=== PATIENT | male | born 1935 | race Caucasian/White ===

== ENCOUNTER 2020-11-19 19:47 | Inpatient (IN) | payer MEDICARE, OTHER ==
[~2020-11-19] VITALS: Ht 172.7 cm; Wt 86.2 kg
[~2020-11-19 19:47] MED LIST: ACIPHEX20 MG PO; ASPIR-LOW81 MG ORAL; BYSTOLIC 2.5MG2.5 MG; CLONAZEPAM0.5 MG; CLOPIDOGREL75 MG; CRESTOR10 M2; QNASL8.7 GM; RANITIDINE HCL150 M2; TAMSULOSIN HCL0.4 MG
--- NOTE | 2020-11-19 20:08 | NUR ---
ED Nurse Note: Pt walked in from home, walks with a steady gait, axox4, vitals are stable on RA. Pt has fever, cough, flu like symptoms. He states that he tested positive for COVID 11/18. He is febrile and has notable generalized weakness, both upper extremities are exhibiting tremors. he speaks in full sentaces, breathing is even and unlabored. Addendum: 11/19/20 at 2025 by [facility] in by ambulance RA 68
[2020-11-19 20:19] LABS: HEMATOCRIT 40.4 % (42.0-52.0); HEMOGLOBIN 13.4 G/DL (14.2-18.0); MEAN CORPUSCULAR VOLUME 93 FL (80-99); PLATELET COUNT 126 K/UL (150-450); RED BLOOD COUNT 4.34 M/UL (4.70-6.10); RED CELL DISTRIBUTION WIDTH 11.9 % (11.6-14.8); WHITE BLOOD COUNT 6.1 K/UL (4.8-10.8)
[2020-11-19 20:25] VITALS: BP 122/61
[2020-11-19 20:25] LABS: CALCIUM 9.2 MG/DL (8.5-10.1); CREATININE 2.2 MG/DL (0.55-1.30); POTASSIUM 4.5 MMOL/L (3.5-5.1)
[2020-11-19 20:29] LABS: INR 1.1 (0.9-1.1)
--- NOTE | 2020-11-19 20:40 | NUR ---
ED Nurse Note: Pt states annelise he is unable to give a urine sample at this time. ER MD aware and says thats ok.
[2020-11-19 20:42] LABS: ALBUMIN 3.4 G/DL (3.4-5.0); ALBUMIN/GLOBULIN RATIO 0.9 (1.0-2.7); BILIRUBIN,TOTAL 0.8 MG/DL (0.2-1.0); CKMB 0.7 NG/ML (0.0-3.6)
--- NOTE | 2020-11-19 20:51 | NUR ---
ED Nurse Note: ER MD aware of lactic acid. no new orders
[2020-11-19] MEDS ORDERED: Azithromycin 500 MG in NS 275 ML IV ONE (21:15)
[2020-11-19] MEDS ORDERED: Enoxaparin 100mg Inj SUBQ SCH (22:00)
[2020-11-19] MEDS ORDERED: dexAMETHasone 10mg/ml Inj IV ONE (22:00)
--- NOTE | 2020-11-19 22:36 | NUR ---
ED Nurse Note: Both ER MDs on shift stated ok to give lovenox with plt 126
--- NOTE | 2020-11-19 22:39 | Emergency Room Report ---
History of Present Illness General Chief Complaint: Generalized Weakness Source: Patient Present Illness HPI This patient presents during the COVID-19 pandemic. The patient tested positive for COVID-19 on the of this month. The patient states that over the past few days he has felt terrible. He states he has generalized weakness and severe fatigue. He states he is not doing well with Covid. 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 He denies shortness of breath or chest pain. He has felt chills. He denies abdominal pain. He denies nausea or vomiting. He states he mainly just feels completely exhausted and was unable to even get himself up in the restroom today. Allergies: Coded Allergies: No Known Allergies (Unverified , 10/20/12) COVID-19 Screening Contact w/high risk pt: Yes Experienced COVID-19 symptoms?: Yes COVID-19 Testing performed BONE TENDER: Yes COVID-19 Screening: Positive COVID-19 COVID-19 Testing Source: [facility] Patient History Past Medical History: see triage record, DM, HTN, CAD Social History: Denies: smoking, alcohol use, drug use Reviewed Nursing Documentation: PMH: Agreed; PSxH: Agreed Nursing Documentation-PMH Hx Cardiac Problems: Yes Hx Hypertension: Yes Hx Diabetes: Yes Hx Cancer: Yes Hx Gastrointestinal Problems: No Hx Cerebrovascular Accident: Yes - 2004 Hx Neurologic Surgery: No Review of Systems All Other Systems: negative except mentioned in HPI Physical Exam Vital Signs Date Time Temp Pulse Resp B/P (MAP) Pulse Ox O2 Delivery O2 Flow Rate FiO2 11/19/20 19:42 99.1 98 20 124/62 (82) 98 Room Air Sp02 EP Interpretation: reviewed, normal General Appearance: no apparent distress, alert, GCS 15, non-toxic Head: normocephalic, atraumatic Eyes: bilateral eye normal inspection, bilateral eye PERRL ENT: hearing grossly normal, normal pharynx, no angioedema, normal voice Neck: full range of motion, supple/symm/no masses Respiratory: chest non-tender, lungs clear, normal breath sounds, no respiratory distress, no retraction, no accessory muscle use, speaking full sentences Cardiovascular #1: regular rate, rhythm, no edema Gastrointestinal: normal bowel sounds, non tender, soft, non-distended, no guarding, no rebound Rectal: deferred Musculoskeletal: back normal, normal range of motion, non-tender Neurologic: alert, motor strength/tone normal, oriented x3, sensory intact, responsive, speech normal Psychiatric: judgement/insight normal, memory normal, mood/affect normal, no suicidal/homicidal ideation Skin: no rash, normal color Medical Decision Making Diagnostic Impression: Primary Impression: COVID-19 Additional Impressions: Pneumonia Renal failure Dehydration Lactic acidosis ER Course This patient has COVID-19 pneumonia. He does not require any oxygen to maintain saturations in the high 90s. However, on chest x-ray he does have a mild multifocal pneumonia. He was given azithromycin as a precaution to cover bacterial etiology. Patient was also given Decadron and Lovenox per protocol of COVID-19. The patient does have a slightly elevated creatinine and platelets of 126, however, I felt that the benefit of treatment with Lovenox in this patient with COVID-19 outweighed the risk in this particular patient. The patient also is elderly and very fatigued and weak at this time. He is unable to perform activities of daily living. He will be admitted for further monitoring and further evaluation treatment as an inpatient as I do not feel that he is safe to be home and he is high risk for rapid deterioration. This patient was evaluated in the context of the global COVID-19 pandemic, which necessitated consideration that the patient might be at risk for infection with the [id number] virus that causes COVID-19. Institutional protocols and algorithms that pertain to the evaluation of patients at risk for COVID-19 and the state of rapid change based on information released by multiple regulatory bodies including the CDC and federal and state organizations. These policies and algorithms were followed during the patient's care in the ED. Laboratory Tests Test 11/19/20 20:00 White Blood Count 6.1 K/UL (4.8-10.8) Red Blood Count 4.34 M/UL (4.70-6.10) L Hemoglobin 13.4 G/DL (14.2-18.0) L Hematocrit 40.4 % (42.0-52.0) L Mean Corpuscular Volume 93 FL (80-99) Mean Corpuscular Hemoglobin 30.8 PG (27.0-31.0) Mean Corpuscular Hemoglobin Concent 33.2 G/DL (32.0-36.0) Red Cell Distribution Width 11.9 % (11.6-14.8) Platelet Count 126 K/UL (150-450) L Mean Platelet Volume 8.8 FL (6.5-10.1) Neutrophils (%) (Auto) % (45.0-75.0) Lymphocytes (%) (Auto) % (20.0-45.0) Monocytes (%) (Auto) % (1.0-10.0) Eosinophils (%) (Auto) % (0.0-3.0) Basophils (%) (Auto) % (0.0-2.0) Differential Total Cells Counted 100 Neutrophils % (Manual) 80 % (45-75) H Lymphocytes % (Manual) 12 % (20-45) L Monocytes % (Manual) 6 % (1-10) Eosinophils % (Manual) 0 % (0-3) Basophils % (Manual) 0 % (0-2) Band Neutrophils 2 % (0-8) Platelet Estimate Decreased L Platelet Morphology Normal Red Blood Cell Morphology Normal Prothrombin Time 12.1 SEC (9.30-11.50) H Prothrombin Time INR 1.1 (0.9-1.1) Activated Partial Thromboplast Time 30 SEC (23-33) D-Dimer 8.10 mg/L FEU (0.00-0.49) H Sodium Level 135 MMOL/L (136-145) L Potassium Level 4.5 MMOL/L (3.5-5.1) Chloride Level 100 MMOL/L (98-107) Carbon Dioxide Level 23 MMOL/L (21-32) Anion Gap 12 mmol/L (5-15) Blood Urea Nitrogen 26 mg/dL (7-18) H Creatinine 2.2 MG/DL (0.55-1.30) H Estimated Glomerular Filtration Rate 28.6 mL/min (>60) Glucose Level 138 MG/DL (74-106) H Lactic Acid Level 4.80 mmol/L (0.4-2.0) H Calcium Level 9.2 MG/DL (8.5-10.1) Ferritin 665 NG/ML (8-388) H Total Bilirubin 0.8 MG/DL (0.2-1.0) Aspartate Amino Transferase (AST) 35 U/L (15-37) Alanine Aminotransferase (ALT) 24 U/L (12-78) Alkaline Phosphatase 46 U/L (46-116) Lactate Dehydrogenase 197 U/L (81-234) Total Creatine Kinase 492 U/L (26-308) H Creatine Kinase MB 0.7 NG/ML (0.0-3.6) Creatine Kinase MB Relative Index 0.1 Troponin I 0.021 ng/mL (0.000-0.056) C-Reactive Protein, Quantitative 18.5 mg/dL (0.00-0.90) H Pro-B-Type Natriuretic Peptide 506 pg/mL (0-125) H Total Protein 7.4 G/DL (6.4-8.2) Albumin 3.4 G/DL (3.4-5.0) Globulin 4.0 g/dL Albumin/Globulin Ratio 0.9 (1.0-2.7) L Lipase 124 U/L (73-393) Microbiology Date/Time Source Procedure Growth Status 11/19/20 20:23 Nasopharynx SARS-CoV-2 RdRp Gene Assay - Final Complete EKG Diagnostic Results Rate: other - SR w/ 1st degree AV block. Rhythm: other - SR ST Segments: no acute changes Rhythm Strip Diag. Results EP Interpretation: yes Rate: 80's Rhythm: NSR, no PVC's, no ectopy Chest X-Ray Diagnostic Results Chest X-Ray Diagnostic Results : Chest X-Ray Ordered: Yes # of Views/Limited/Complete: 1 View Indication: Other EP Interpretation: Yes Interpretation: other - multifocal opacities bilateral lungs. Impression: Other - atypical PNA Electronically Signed by: Mariam Landon DO Last Vital Signs Date Time Temp Pulse Resp B/P (MAP) Pulse Ox O2 Delivery O2 Flow Rate FiO2 11/19/20 20:25 100.8 102 20 122/61 98 Room Air Disposition: ADMITTED INPATIENT Condition: Serious Referrals: NOT CHOSEN IPA/,REFERRING (PCP) Mariam Landon DO Nov 19, 2020 22:39
--- NOTE | 2020-11-19 22:45 | NUR ---
NURSE NOTES: Received report from CAMRON Alvarado. Waiting for transfer.
--- NOTE | 2020-11-19 22:50 | NUR ---
ED Nurse Note: Report given to Sergio
--- NOTE | 2020-11-19 23:10 | NUR ---
NURSE NOTES: Patient arrived on unit in 411-2. Pt is in distress at this time. Vitals signs are as follows 101.5, RI 80, 95%, 140/69, RR 20, and in no pain. 20G IV on L AC. Patient oriented to room and is aware to call staff if he needs to stand up. Will contact Md for admission orders.
--- NOTE | 2020-11-19 23:12 | NUR ---
TRANSFER TO FLOOR: Patient transferred to as ordered, per ER MD. Report given to Sergio LYON 411-2. Belongings sent with pt. Family and or S/O informed of transfer. Pt transfered per covid policy.
[2020-11-19 23:13] LABS: APPEARANCE,URINE CLEAR; BILIRUBIN, URINE NEGATIVE (NEGATIVE); GLUCOSE, URINE (UA) NEGATIVE (NEGATIVE); KETONES,URINE 1+ (NEGATIVE); LEUKOCYTE ESTERASE ,URINE 1+ (NEGATIVE); NITRITE,URINE NEGATIVE (NEGATIVE); PH,URINE 5 (4.5-8.0); PROTEIN,URINE 3+ (NEGATIVE); UROBILINOGEN,URINE NORMAL MG/DL (0.0-1.0)
--- NOTE | 2020-11-19 23:15 | NUR ---
ED Nurse Note: Pt doesnt know maintenance meds name and dosage. Pt's will call to give the list of meds. Med recon not done
[2020-11-19 23:35] LABS: COLOR,URINE YELLOW
[2020-11-20] VITALS (7 sets, daily range): BP systolic 110–140; BP diastolic 52–71
[2020-11-20] MEDS ORDERED: Morphine Sulfate 2mg/ml Inj(IV/IM USE ONLY) IVP PRN (04:30)
[2020-11-20 06:19] LABS: HEMATOCRIT 40.3 % (42.0-52.0); HEMOGLOBIN 13.6 G/DL (14.2-18.0); MEAN CORPUSCULAR VOLUME 93 FL (80-99); PLATELET COUNT 133 K/UL (150-450); RED BLOOD COUNT 4.36 M/UL (4.70-6.10); RED CELL DISTRIBUTION WIDTH 11.8 % (11.6-14.8); WHITE BLOOD COUNT 5.7 K/UL (4.8-10.8)
[2020-11-20] MEDS: NovoLOG Insulin Flexpen SUBQ SCH ×4 (06:26→20:40)
[2020-11-20 07:04] LABS: CALCIUM 8.9 MG/DL (8.5-10.1); CREATININE 1.7 MG/DL (0.55-1.30); POTASSIUM 4.6 MMOL/L (3.5-5.1)
--- NOTE | 2020-11-20 07:30 | NUR ---
NURSE HAND-OFF: Important Events on Shift: Fever of 101.5 that went down to 98.4 Patient Status: calm Diet: 1800 ada low sodium Pending Orders: Pending Results/Labs: Pending MD notification: Latest Vital Signs: Temperature 97.7 , Pulse 64 , B/P 135 /71 , Respiratory Rate 16 , O2 SAT 97 , Room Air, O2 Flow Rate . Vital Sign Comment: VSS Latest Delarosa Fall Score: 45 Fall Risk: High Risk Safety Measures: Call light Within Reach, Bed Alarm Zone 1, Side Rails Side Rails x3, Bed position Low and Locked. Fall Precautions: Yellow Socks Door Sign Patient Fall Education Report given to Jamie Lees.
--- NOTE | 2020-11-20 07:40 | NUR ---
NURSE NOTES: Report received from Sergio LYON, rounds made. Patient dangling at bedside. AOx4, calm. Respirations even unlabored on RA. Denies SOB, pain, NV. IV 1/2 NS at 60 ml/hr to LAC, site asymptomatic. Call light in reach, bed in lowest position, will continue to monitor.
--- NOTE | 2020-11-20 08:28 | NUR ---
NURSE NOTES: Dr. Carlson and Dr. Orozco notified of platelets 133, orders for okay to give Heparin this AM. Will follow as ordered.
--- NOTE | 2020-11-20 08:30 | NUR ---
NURSE NOTES: Spoke with daughter, patient's neighbor will bring in home medications.
[2020-11-20] MEDS: Heparin 5000 units/ml inj SUBQ SCH ×2 (08:48→20:40)
--- NOTE | 2020-11-20 08:55 | NUR ---
NURSE NOTES: Home medications brought in, reviewed and documented each medication, will resume as ordered. Prescription bottles given back to neighbor. Belongings (glasses, iphone, exhibit electrician and watch) given to patient.
--- NOTE | 2020-11-20 10:24 | Consultation ---
Consult Note Consult Note DATE OF CONSULTATION: 11/20/2020 CONSULTING PHYSICIAN: Gigi Negrete MD. ATTENDING PHYSICIAN: Dr. Carlson REASON FOR CONSULTATION: COVID-19 HISTORY OF PRESENT ILLNESS: This is an 85-year-old male with history of obstructive sleep apnea, COPD, and diabetes mellitus, who presented to the ED for evaluation of generalized weakness and severe fatigue for a few days. Patient reported testing positive for COVID-19 on 11/14/2020. His repeat COVID- 19 testing via rapid gene assay is positive in the ER. On chest x-ray he does have a mild multifocal pneumonia. He was given azithromycin for empiric pneumonia coverage. He was also given Decadron and Lovenox. He was admitted to the hospital for further monitoring and evaluation/treatment given high risk for rapid deterioration. 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 He denies having any other caregiver and is concerned that his is left at home without assistance. He denies shortness of breath, chest pain, abdominal pain, nausea/vomiting, cough or diarrhea. For his history of sleep apnea, he reports using CPAP at night. 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 General: Patient sitting up on the edge of bed, eating breakfast. Appears NAD, with normal work of breathing on room air. HEENT: Head exam reveals that the head is normocephalic, atraumatic without deformity or unusual swelling. Pupils are PERRLA. Wearing facemask CHEST AND LUNGS: Reveals clear, normal, symmetrical breath sounds with no adventitious sounds. CARDIOVASCULAR: Reveals normal S1, S2 without murmurs, rubs, or clicks. ABDOMEN: Soft with no tenderness or organomegaly. RECTAL: Deferred. MUSCULOSKELETAL: There is no tenderness to palpation. Range of motion is normal. NEUROLOGICAL: Alert and oriented x3 , nonfocal, shows resting tremor LABORATORY DATA: Laboratory testing shows WBC 5.7, hemoglobin 13.6, hematocrit 40.3. Chemistries show BUN 24, creatinine 1.7, glucose 160, otherwise unremarkable Coag panel shows D-dimer 8.1 Urinalysis show 3+ protein, 1+ ketone, 5+ blood, 1+ leuk esterase Assessment/Plan 1. COVID-19 pneumonia with history of fever (T-max= 101.5) -Currently saturating well on room air; provide supplemental oxygen as needed -Given x-ray findings and history of fever, we will continue broad-spectrum antibiotics for pneumonia coverage -Given normoxemia on room air, he may not need steroids 2. Weakness - Recommend PT evaluation -Monitor 3. SOUMYA -IV fluids -Monitor renal parameters 4. Diabetes mellitus with hyperglycemia -On insulin 5. Elevated inflammatory markers -On heparin, given elevated BUN, Cr 6. Obstructive sleep apnea -Patient reports using CPAP at night -We will continue CPAP at night with the setting of 12 The care for this patient was discussed with my supervising physician. Time spent for this case was approximately 31 minutes. Wm Marx Nov 20, 2020 10:24
--- NOTE | 2020-11-20 11:31 | Diagnostic Imaging Report ---
Indication: Shortness of breath Technique: XRAY Chest 1v Comparison: 11/15/20192013 Findings: There is asymmetric hazy opacities in the left midlung. No pleural effusion or pneumothorax. Heart size and mediastinal contours within normal limits and stable compared to the prior exam. No acute osseous abnormality. Impression: Hazy asymmetric opacities in the left midlung concerning for pneumonia. Clinical correlation and follow-up recommended.
[2020-11-20] MEDS ORDERED: cefTRIAXone 1 GM in D5W 55 ML IVPB SCH (12:00)
--- NOTE | 2020-11-20 12:15 | Consultation ---
Consult Note Consult Note I am asked to evaluate the patient at the request of Dr. Carlson for renal failure Chief Complaint: Generalized Weakness This patient presents during the COVID-19 pandemic. The patient tested positive for COVID-19 on the of this month. The patient states that over the past few days he has felt terrible. He states he has generalized weakness and severe fatigue. He states he is not doing well with Covid. 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 He denies shortness of breath or chest pain. He has felt chills. He denies abdominal pain. He denies nausea or vomiting. He states he mainly just feels completely exhausted and was unable to even get himself up in the restroom today. Allergies: No Known Allergies (Unverified , 10/20/12) COVID-19 Screening Contact w/high risk pt: Yes Experienced COVID-19 symptoms?: Yes COVID-19 Testing performed PICTURE ENLARGER: Yes COVID-19 Screening: Positive COVID-19 COVID-19 Testing Source: [facility] Past Medical History: see triage record, DM, HTN, CAD Hx Cardiac Problems: Yes Hx Hypertension: Yes Hx Diabetes: Yes Hx Cancer: Yes Hx Gastrointestinal Problems: No Hx Cerebrovascular Accident: Yes - 2004 Vital Signs Date Time Temp Pulse Resp B/P (MAP) Pulse Ox O2 Delivery O2 Flow Rate FiO2 11/19/20 19:42 99.1 98 20 124/62 (82) 98 Room Air PHYSICAL EXAMINATION: VITAL SIGNS: Temperature 97.5, pulse 72, blood pressure 111/67. GENERAL APPEARANCE: Well developed, no acute distress. HEAD AND NECK: Moist mucous membranes. [place] conjunctiva. HEART: Normal rate. LUNGS: Clear. ABDOMEN: Obese and soft. EXTREMITIES: No edema. LABORATORY AND DIAGNOSTIC DATA: WBC 5.7, hemoglobin 13.6, hematocrit 40.3, and platelets 133, lymphocyte count is low at 16%. Sodium 137, potassium 4.6, chloride 104, bicarb 24, BUN 24, creatinine 1.7, glucose 116. Lactic acid last night was 4.8. UA showed rbc's too numerous to count, wbc's negative. COVID test was positive. Chest x-ray showed hazy atelectatic opacity in the left mid lung concerning for pneumonia. . Assessment/Plan Renal failure, acute Possible underlying chronic kidney disease Dehydration COVID-19 infection, pneumonia Lactic acidosis 3+ proteinuria, hematuria with too many RBCs in the urine Slow hydration Monitor renal parameters Monitor electrolytes Keep the blood pressure blood sugar in check Antibiotics per ID Avoid nephrotoxic's Per orders Ac Castro MD Nov 20, 2020 12:15
[2020-11-20] MEDS: Docusate 100mg cap ORAL SCH ×2 (12:43→17:37)
--- NOTE | 2020-11-20 13:30 | Consultation ---
DATE OF CONSULTATION: 11/20/2020 INFECTIOUS DISEASES CONSULTATION This consult is for coverage of Dr. Jennings CONSULTING PHYSICIAN: Fawad Talbot MD PRIMARY ATTENDING PHYSICIAN: Ziggy Carlson DO REASON FOR CONSULTATION: COVID-19 disease. HISTORY OF PRESENT ILLNESS: This is an 85-year-old [place] male admitted yesterday from home complaining of not feeling good for a couple of days. He was weak, has fatigue. He had a COVID test on 11/14/2020 that was positive. At the beginning of symptoms, he had fever up to 103. PAST MEDICAL HISTORY: COPD, obstructive sleep apnea uses CPAP at night, hyperlipidemia, and BPH. ALLERGIES: No known drug allergies. MEDICATIONS: Azithromycin, ceftriaxone, heparin, insulin, sodium chloride. SOCIAL HISTORY: . Lives with . REVIEW OF SYSTEMS: Has fever, dry cough. No shortness of breath. No change in his smell. No nausea. No vomiting. No diarrhea. PHYSICAL EXAMINATION: VITAL SIGNS: Temperature 97.5, pulse 72, blood pressure 111/67. GENERAL APPEARANCE: Well developed, no acute distress. HEAD AND NECK: Moist mucous membranes. [place] conjunctiva. HEART: Normal rate. LUNGS: Clear. ABDOMEN: Obese and soft. EXTREMITIES: No edema. LABORATORY AND DIAGNOSTIC DATA: WBC 5.7, hemoglobin 13.6, hematocrit 40.3, and platelets 133, lymphocyte count is low at 16%. Sodium 137, potassium 4.6, chloride 104, bicarb 24, BUN 24, creatinine 1.7, glucose 116. Lactic acid last night was 4.8. UA showed rbc's too numerous to count, wbc's negative. COVID test was positive. Chest x-ray showed hazy atelectatic opacity in the left mid lung concerning for pneumonia. IMPRESSION: COVID-19 pneumonia, has acute renal failure, obstructive sleep apnea, lactic acidosis, dehydration, BPH, hyperlipidemia. RECOMMENDATION: Continue ceftriaxone and Zithromax. We will follow up the culture and narrow antibiotics. At the end of my exam, I thank Dr. Ziggy Carlson, for involving me in the care of this patient. Fawad Talbot M.D. DR: Yamilex JOB#: [id number] CC:
--- NOTE | 2020-11-20 13:56 | NUR ---
CASE MANAGEMENT:INITIAL REVIEW 85 YR OLD MALE BIBA FROM HOME CC;GENERALIZED WEAKNESS SI;COVID PNEUMONIA. AC RENAL FAILURE. 101.5 100 20 140/69 95% ON RA PLT- 126 NA- 135 BUN+ 26 CR+ 2.2 GLU+ 138 FERRITIN+ 665 TCK+ 492 CRP+ 18.5 BNP+ 506 PT+ 12.1 D-DIMER+ 8.10 UA+ PROTEIN, KETONES, BLOOD, LEUKOCYTE ESTERASE, RBC COVID RAPID ~ POSITIVE CXR ~ Hazy asymmetric opacities in the left midlung concerning for pneumonia. Clinical correlation and follow-up recommended. IS;IVF NS BOLUS ZITHROMAX IV DECADRON IV LOVENOX SQ ADMITTED TO MED SURG MED SURG STATUS DCP;FROM HOME
[2020-11-20] MEDS ORDERED: BYSTOLIC2.5 MG ORAL (14:34)
[2020-11-20] MEDS ORDERED: MECLIZINE HCL25 MG ORAL (14:34)
[2020-11-20] MEDS ORDERED: DEXILANT60 MG ORAL (14:34)
[2020-11-20] MEDS ORDERED: ROPINIROLE HCL1 MG PO (14:34)
[2020-11-20] MEDS ORDERED: MYRBETRIQ50 MG PO (14:34)
[2020-11-20] MEDS ORDERED: ASPIRIN81 MG ORAL (14:34)
[2020-11-20] MEDS ORDERED: KLONOPIN0.5 MG ORAL (14:34)
[2020-11-20] MEDS ORDERED: vitamin D PO (14:34)
[2020-11-20] MEDS ORDERED: BENICAR40 MG ORAL (14:34)
[2020-11-20] MEDS ORDERED: FLOMAX0.4 MG ORAL (14:34)
[2020-11-20] MEDS ORDERED: CRESTOR10 M2 ORAL (14:34)
[2020-11-20] MEDS ORDERED: MIDODRINE HCL5 MG ORAL (14:34)
[2020-11-20] MEDS ORDERED: TRADJENTA5 MG PO (14:34)
--- NOTE | 2020-11-20 14:44 | History and Physical Report ---
DATE OF ADMISSION: 11/19/2020 DATE AND TIME SEEN: 11/20/2020 approximate time is 1 p.m. CONSULTANTS: 1. Gigi Negrete MD. 2. Eliud Jennings MD. 3. Ac Castro MD. CHIEF COMPLAINT: Weakness, COVID infection, pneumonia, renal failure, fever. BRIEF HISTORY: This is a 85-year-old male, who lives at home, who tested positive for COVID on November 14. He has been feeling very exhausted for about a week taking care of his at home, getting worse, came to [facility], diagnosed with above, and admitted to medical floor. Currently, calm, sleeping in bed, not talking much. REVIEW OF SYSTEMS: Unavailable. PAST MEDICAL HISTORY: Includes diabetes, hypertension, sleep apnea, CVA, renal failure. PAST SURGICAL HISTORY: Unknown. ALLERGIES: Denies. MEDICATIONS: Include Protonix, azithromycin, ceftriaxone, heparin, insulin, morphine, enoxaparin, and dexamethasone. SOCIAL HISTORY: No smoking. No alcohol. No intravenous drug abuse. FAMILY HISTORY: Noncontributory. PHYSICAL EXAMINATION: GENERAL: Calm, sleeping in bed, not talking much. VITAL SIGNS: Temperature is 97 degrees, pulse 72, respirations 22, blood pressure 111/67. CARDIOVASCULAR: No murmur. LUNGS: Poor air exchange. ABDOMEN: Bowel sounds distant. EXTREMITIES: No cyanosis, clubbing, or edema. NEUROLOGIC: The patient is moving all extremities, slightly weak. LABORATORY AND DIAGNOSTIC DATA: Labs at this time show hemoglobin and hematocrit of 13/40 and platelets 133,000, otherwise normal. BMP shows BUN and creatinine of 24/1.7. Glucose 160. INR is 1.1. D-dimer 8.1. Urinalysis, 1+ leukocyte esterase. ASSESSMENT: 1. COVID infection. 2. Urinary tract infection. 3. Pneumonia. 4. Hyperglycemia. 5. Weakness. 6. Fever. 7. Diabetes. 8. Hypertension. 9. CVA. 10. Sleep apnea. 11. Renal failure. PLAN: 1. O2 and pulmonary treatment. 2. Antibiotics per Infectious Disease. 3. Blood pressure and blood sugar control. 4. Dietary followup. 5. PT and dietary evaluation. 6. CBC and BMP in the morning. Ziggy Carlson D.O. DR: ERIK JOB#: [id number] CC:
--- NOTE | 2020-11-20 14:48 | NUR ---
NURSE NOTES: Spoke to lab regarding order for Procalcitonin level, lab will obtain.
--- NOTE | 2020-11-20 16:18 | NUR ---
NURSE NOTES: Dr. Jennings and Dr. Mike Talbot notified of temperature 102.7, to administer previously ordered Tylenol. Encouraged po fluid intake, applied cool compress to forehead, IVF infusing at 50 ml/hr, will continue to monitor.
--- NOTE | 2020-11-20 17:27 | NUR ---
NURSE NOTES: Home medications reconciled with Dr. Carlson, orders to resume all home medications.
[2020-11-20] MEDS ORDERED: clonazePAM 0.5mg tab ORAL PRN (17:30)
[2020-11-20] MEDS ORDERED: Meclizine 25mg tab ORAL PRN (17:30)
--- NOTE | 2020-11-20 17:30 | NUR ---
NURSE NOTES: Temperature rechecked, 102, O2 sat 92 RA, applied O2 2L NC, sats 95. Reapplied fresh cold compress, provided PO fluids, large incontinence, complete bath done, repositioned, HOB elevated, IVF infusing as ordered, will apply condom cath
--- NOTE | 2020-11-20 17:31 | NUR ---
NURSE NOTES: Family dropped off patient belongings (x2 jackets and x1 pair of socks), given to patient. Recorded on belonging inventory.
[2020-11-20] MEDS: Tamsulosin 0.4mg cap ORAL SCH (17:37)
--- NOTE | 2020-11-20 18:10 | NUR ---
NURSE NOTES: Attempted to stand patient at bedside with x2 assist, poor strength, unable to take small side steps, unable to stand.
--- NOTE | 2020-11-20 19:03 | NUR ---
NURSE HAND-OFF: Important Events on Shift:Temperature 102.7, Tylenol, rechecked 102, O2 2LNC applied, Home medications reconciled/ordered, needs condom cath applied (if not already done), PT evaluation to be done 11/21 Patient Status: stable Diet: CCHO low NA Pending Orders: labs AM Pending Results/Labs:see lab order list Pending MD notification:none Latest Vital Signs: Temperature 102.0 , Pulse 78 , B/P 110 /60 , Respiratory Rate 21 , O2 SAT 95 , Room Air, O2 Flow Rate 2.0 . Vital Sign Comment: monitor temperature Latest Delarosa Fall Score: 45 Fall Risk: High Risk Safety Measures: Call light Within Reach, Bed Alarm Zone 1, Side Rails Side Rails x2, Bed position Low and Locked. Fall Precautions: Yellow Socks Yellow Gown Door Sign Patient Fall Education Report given to Salina LYON.
--- NOTE | 2020-11-20 20:04 | NUR ---
NURSE NOTES: Received patient awake, alert, verbal, resting in bed, comfortable, on O2 2l per nasal cannula.
[2020-11-20] MEDS: Atorvastatin 20mg tab ORAL SCH (20:39)
[2020-11-20] MEDS ORDERED: Azithromycin 500 MG in D5W 275 ML IV SCH (21:00)
[2020-11-21] VITALS (7 sets, daily range): BP systolic 99–131; BP diastolic 56–80
[2020-11-21] MEDS: NovoLOG Insulin Flexpen SUBQ SCH ×4 (06:30→20:45)
[2020-11-21 07:02] LABS: HEMATOCRIT 39.2 % (42.0-52.0); HEMOGLOBIN 13.5 G/DL (14.2-18.0); MEAN CORPUSCULAR VOLUME 92 FL (80-99); PLATELET COUNT 122 K/UL (150-450); RED BLOOD COUNT 4.27 M/UL (4.70-6.10); RED CELL DISTRIBUTION WIDTH 11.9 % (11.6-14.8)
--- NOTE | 2020-11-21 07:31 | NUR ---
HAND-OFF: Report given to CAMRON Alva.
--- NOTE | 2020-11-21 07:33 | Consultation ---
History of Present Illness General Chief Complaint: Generalized Weakness Present Illness Allergies: Coded Allergies: No Known Allergies (Unverified , 10/20/12) Medication History Scheduled Aspirin* (Aspir-Low*), 81 MG ORAL DAILY, (Reported) Aspirin* (Aspirin*), 81 MG ORAL DAILY, (Reported) Clonazepam* (Klonopin*), 0.5 MG ORAL HS, (Reported) Dexlansoprazole (Dexilant), 60 MG ORAL DAILY, (Reported) Linagliptin (Tradjenta), 5 MG PO DAILY, (Reported) Meclizine Hcl* (Meclizine*), 25 MG ORAL EVERY 8 HOURS, (Reported) Midodrine* (Proamatine*), 5 MG ORAL THREE TIMES A DAY, (Reported) Mirabegron (Myrbetriq), 50 MG PO DAILY, (Reported) Nebivolol Hcl* (Bystolic*), 2.5 MG ORAL DAILY, (Reported) Olmesartan Medoxomil (Benicar), 40 MG ORAL DAILY, (Reported) Ropinirole Hcl* (Ropinirole Hcl*), 1 MG PO daily , (Reported) Rosuvastatin Calcium* (Crestor*), 10 MG ORAL DAILY, (Reported) Tamsulosin HCl (Flomax), 0.4 MG ORAL TWICE A DAY, (Reported) [vitamin D ], 5,000 PO DAILY, (Reported) Miscellaneous Medications Beclomethasone Dipropionate (Qnasl), (Reported) Bysto (Bystolic), (Reported) Clonazepam (Clonazepam), (Reported) Clopidogrel* (Clopidogrel*), (Reported) Ranitidine HCl (Ranitidine HCl), (Reported) Rosuvastatin Calcium* (Crestor*), (Reported) Tamsulosin Hcl (Tamsulosin Hcl*), (Reported) Patient History Healthcare decision maker Resuscitation status Advanced Directive on File Physical Exam Last 24 Hour Vital Signs Date Time Temp Pulse Resp B/P (MAP) Pulse Ox O2 Delivery O2 Flow Rate FiO2 11/21/20 04:30 98.8 67 24 118/57 (77) 92 11/21/20 00:00 98.1 71 24 130/61 (84) 93 11/20/20 20:18 Nasal Cannula 2.0 11/20/20 20:00 99.7 64 20 110/52 (71) 96 11/20/20 17:30 102.0 78 21 110/60 (77) 92 11/20/20 17:30 95 11/20/20 16:48 102.0 11/20/20 16:00 102.7 77 23 136/62 (86) 92 11/20/20 12:00 98.2 63 21 136/64 (88) 96 11/20/20 09:00 Nasal Cannula 2.0 11/20/20 08:00 97.5 72 22 111/67 (82) 96 Intake and Output 11/20/20 11/21/20 19:00 07:00 Intake Total 1040 ml 1175 ml Output Total 500 ml Balance 540 ml 1175 ml Intake Oral 500 ml 450 ml IV Total 540 ml 725 ml Output Urine Total 500 ml # Voids 4 # Bowel Movements 1 Laboratory Tests Test 11/20/20 11:10 11/20/20 16:24 11/20/20 20:00 11/21/20 05:36 Miscellaneous Test Pending Hepatitis A IgM Antibody Pending Hepatitis B Surface Antigen Pending Hepatitis B Core IgM Antibody Pending Hepatitis C Antibody Pending HIV (1&2) Antibody Rapid Pending POC Whole Blood Glucose 125 MG/DL (74-106) H 121 MG/DL (74-106) H 114 MG/DL (74-106) H Test 11/21/20 05:45 White Blood Count 7.0 K/UL (4.8-10.8) Red Blood Count 4.27 M/UL (4.70-6.10) L Hemoglobin 13.5 G/DL (14.2-18.0) L Hematocrit 39.2 % (42.0-52.0) L Mean Corpuscular Volume 92 FL (80-99) Mean Corpuscular Hemoglobin 31.6 PG (27.0-31.0) H Mean Corpuscular Hemoglobin Concent 34.5 G/DL (32.0-36.0) Red Cell Distribution Width 11.9 % (11.6-14.8) Platelet Count 122 K/UL (150-450) L Mean Platelet Volume 9.0 FL (6.5-10.1) Neutrophils (%) (Auto) % (45.0-75.0) Lymphocytes (%) (Auto) % (20.0-45.0) Monocytes (%) (Auto) % (1.0-10.0) Eosinophils (%) (Auto) % (0.0-3.0) Basophils (%) (Auto) % (0.0-2.0) Neutrophils % (Manual) Pending Lymphocytes % (Manual) Pending Platelet Estimate Pending Platelet Morphology Pending Sodium Level Pending Potassium Level Pending Chloride Level Pending Carbon Dioxide Level Pending Blood Urea Nitrogen Pending Creatinine Pending Estimat Glomerular Filtration Rate Pending Glucose Level Pending Hemoglobin A1c Pending Uric Acid Pending Calcium Level Pending Phosphorus Level Pending Magnesium Level Pending Iron Level Pending Unsaturated Iron Binding Pending Total Bilirubin Pending Gamma Glutamyl Transpeptidase Pending Aspartate Amino Transf (AST/SGOT) Pending Alanine Aminotransferase (ALT/SGPT) Pending Alkaline Phosphatase Pending Lactate Dehydrogenase Pending Total Creatine Kinase Pending C-Reactive Protein, Quantitative Pending Pro-B-Type Natriuretic Peptide Pending Total Protein Pending Albumin Pending Globulin Pending Triglycerides Level Pending Cholesterol Level Pending LDL Cholesterol Pending HDL Cholesterol Pending Cholesterol/HDL Ratio Pending Vitamin B12 Level Pending Vitamin D 25-Hydroxy Pending 25-Hydroxy Vitamin D2 Pending 25-Hydroxy Vitamin D3 Pending Folate Pending Calcitonin Level Pending Thyroid Stimulating Hormone (TSH) Pending Height (Feet): 5 Height (Inches): 8.00 Weight (Pounds): 190 Medications Current Medications Medications (Trade) Dose Ordered Sig/Wilson Route PRN Reason Start Time Stop Time Status Last Admin Dose Admin Acetaminophen (Tylenol) 650 mg Q6H PRN ORAL Temp >100.5 11/20/20 04:30 12/20/20 04:29 11/20/20 16:18 Aspirin (ASA) 81 mg DAILY ORAL 11/21/20 09:00 01/05/21 08:59 Atorvastatin Calcium (Lipitor) 20 mg BEDTIME ORAL 11/20/20 21:00 02/18/21 20:59 11/20/20 20:39 Azithromycin 500 mg/Dextrose 275 ml @ 275 mls/hr Q24HRS IV 11/20/20 21:00 11/26/20 21:59 11/20/20 20:38 Ceftriaxone Sodium 1 gm/ Dextrose 55 ml @ 110 mls/hr Q24H IVPB 11/20/20 12:00 11/27/20 11:59 11/20/20 12:43 Clonazepam (KlonoPIN) 0.5 mg HSPRN PRN ORAL For Anxiety 11/20/20 17:30 11/27/20 17:29 Dextrose (Dextrose 50%) 25 ml Q30M PRN IV Hypoglycemia 11/20/20 04:30 02/18/21 04:29 Dextrose (Dextrose 50%) 50 ml Q30M PRN IV Hypoglycemia 11/20/20 04:30 02/18/21 04:29 Docusate Sodium (Colace) 100 mg THREE TIMES A DAY ORAL 11/20/20 13:00 12/20/20 12:59 11/20/20 17:37 Heparin Sodium (Porcine) (Heparin 5000 units/ml) 5,000 units EVERY 12 HOURS SUBQ 11/20/20 09:00 01/04/21 08:59 11/20/20 20:40 Insulin Aspart (NovoLOG) BEFORE MEALS AND HS SUBQ 11/20/20 06:30 02/18/21 06:29 11/20/20 06:26 Irbesartan (Avapro) 300 mg DAILY ORAL 11/21/20 09:00 02/19/21 08:59 Meclizine HCl (Antivert) 25 mg Q8H PRN ORAL for dizziness 11/20/20 17:30 12/20/20 17:29 Midodrine (Pro-Amatine) 5 mg THREE TIMES A DAY ORAL 11/20/20 20:00 02/18/21 19:59 11/20/20 20:38 Morphine Sulfate (Morphine Sulfate) 2 mg Q4H PRN IVP For Pain 11/20/20 04:30 11/27/20 04:29 Nebivolol (Bystolic) 2.5 mg DAILY ORAL 11/21/20 09:00 12/21/20 08:59 Non-Formulary Medication (Non-Formulary Med) 1 ea DAILY ORAL 11/21/20 09:00 12/21/20 08:59 UNV Non-Formulary Medication (Non-Formulary Med) 1 ea DAILY ORAL 11/21/20 09:00 12/21/20 08:59 UNV Pantoprazole (Protonix) 40 mg EVERY 12 HOURS ORAL 11/20/20 21:00 12/20/20 20:59 11/20/20 20:39 Ropinirole HCl (Requip) 1 mg DAILY ORAL 11/21/20 09:00 12/21/20 08:59 Sodium Chloride 1,000 ml @ 50 mls/hr Q20H IV 11/20/20 12:30 12/20/20 12:29 11/20/20 12:43 Tamsulosin HCl (Flomax) 0.4 mg TWICE A DAY ORAL 11/20/20 18:00 12/20/20 17:59 11/20/20 17:37 Vitamin D (Vitamin D) 5,000 unit DAILY ORAL 11/21/20 09:00 12/21/20 08:59 Assessment/Plan Assessment/Plan: Hematology Consultation REQ MD: Ziggy Carlson DOS: 11/21/2019 RFC: Low platelets HPI 85 y old male, This patient presents during the COVID-19 pandemic. The patient tested positive for COVID-19 on the of this month. The patient states that over the past few days he has felt terrible. He states he has generalized weakness and severe fatigue. He states he is not doing well with Covid. 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 He denies shortness of breath or chest pain. He has felt chills. He denies abdominal pain. He denies nausea or vomiting. He states he mainly just feels completely exhausted and was unable to even get himself up in the restroom today. 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: Yes COVID-19 Screening: Positive COVID-19 COVID-19 Testing Source: [facility] Patient History Past Medical History: see triage record, DM, HTN, CAD Social History: Denies: smoking, alcohol use, drug use Reviewed Nursing Documentation: PMH: Agreed; PSxH: Agreed Nursing Documentation-PMH Hx Cardiac Problems: Yes Hx Hypertension: Yes Hx Diabetes: Yes Hx Cancer: Yes Hx Gastrointestinal Problems: No Hx Cerebrovascular Accident: Yes - 2004 Hx Neurologic Surgery: No Review of Systems All Other Systems: negative except mentioned in HPI Physical Exam Sp02 EP Interpretation: reviewed, normal General: no apparent distress, alert, GCS 15, non-toxic Heent: hearing grossly normal, normal pharynx, no angioedema, normal voice Neck: full range of motion, supple/symm/no masses Respiratory: chest non-tender, lungs clear, normal breath sounds Cardiovasc: regular rate, rhythm, no edema Gastrointestinal: normal bowel sounds, non tender, soft, non-distended, no guarding, no rebound Rectal: deferred Musculoskeletal: back normal, normal range of motion Neurologic: alert, motor strength/tone normal Psychiatric: judgement/insight normal, memory normal Skin: no rash, normal color Labs: noted Imaging: reviewed Assessment and Recs # Thrombocytopenia likely related to underlying covid19++++++ --> smear reviewed, no blasts --> hep and hiv as needed --> supportive care for now --> transfuse prn basis --> ABX # COVID-19 --> per pulm and id recs --> abx ctx/azithro # Elevated ddimer poa --> duplex legs # Pneumonia --> as above # Renal failure --> ivfs # Dehydration --> goal euvolemia # Lactic acidosis # Dvt ppx heparin sq Appreciate consultation and appreciate consultation Gabriel Orozco MD Nov 21, 2020 07:33
--- NOTE | 2020-11-21 07:35 | NUR ---
NURSE NOTES: Received report from CAMRON Oliveira. Pt is a/o x 3, forgetful. SOB noted. Increased O2 2L/min to 5L/min. PaO2 94% checked. GARCIA Marx is aware. Denies any pain at this time. NS is running @ 50ml/hr via Lt AC. Bed in lowest position, call light within reach. Will continue to monitor.
--- NOTE | 2020-11-21 07:40 | NUR ---
RD ASSESSMENT & RECOMMENDATIONS SEE CARE ACTIVITY FOR COMPLETE ASSESSMENT DAILY ESTIMATED NEEDS: Needs based on Pulmonary, DM 72kg 25-30 kcals/kg 4969-1922 total kcals 1-1.5 g protein/kg 72-108 g total protein 20-25 mL/kg 0022-1530 total fluid mLs NUTRITION DIAGNOSIS: Altered nutrition related lab values related to DM, covid 19 Pna as evidenced by tmax 102.7, elevated BG (138-160). CURRENT DIET: CCHO MED/ LOW NA PO DIET RECOMMENDATIONS: W/ current poor po intake-> REGULAR/ LIBERALIZED diet /texture as tolerated ADDITIONAL RECOMMENDATIONS: 1) Maintain daily calibrated bed scale wts 2) Monitor BG w/ current poor po intake, check q4-q6 for hypoglycemia 3) Add Glucerna w/ meals (250 kcal/10g pro) 4) Renal labs improving, no recs for renal diet at this time
[2020-11-21 08:25] LABS: ALANINE AMINOTRANSFERASE 72 U/L (12-78); ALBUMIN 2.8 G/DL (3.4-5.0); ALBUMIN/GLOBULIN RATIO 0.7 (1.0-2.7); ALKALINE PHOSPHATASE 39 U/L (46-116); ANION GAP 10 mmol/L (5-15); ASPARTATE AMINO TRANSFERASE 278 U/L (15-37); BILIRUBIN,TOTAL 0.5 MG/DL (0.2-1.0); BLOOD UREA NITROGEN 30 mg/dL (7-18); CALCIUM 8.5 MG/DL (8.5-10.1); CARBON DIOXIDE 23 MMOL/L (21-32); CHLORIDE 102 MMOL/L (98-107); CHOLESTEROL 118 MG/DL (< 200); CREATINE KINASE 9878 U/L (26-308); CREATININE 1.8 MG/DL (0.55-1.30); GAMMA GLUTAMYL TRANSPEPTIDASE 12 U/L (5-85); HDL CHOLESTEROL 22 MG/DL (40-60); LACTATE DEHYDROGENASE 418 U/L (81-234); PHOSPHORUS 2.4 MG/DL (2.5-4.9); POTASSIUM 4.1 MMOL/L (3.5-5.1); SODIUM 134 MMOL/L (136-145); TRIGLYCERIDES 145 MG/DL (30-150)
--- NOTE | 2020-11-21 08:43 | Pulmonology Progress Note ---
Subjective ROS Limited/Unobtainable: No Interval Events: none major reported per nursing Constitutional: Reports: no symptoms HEENT: Repors: no symptoms Respiratory: Reports: shortness of breath Cardiovascular: Reports: no symptoms Gastrointestinal/Abdominal: Reports: no symptoms Allergies: Coded Allergies: No Known Allergies (Unverified , 10/20/12) Objective Last 24 Hour Vital Signs Date Time Temp Pulse Resp B/P (MAP) Pulse Ox O2 Delivery O2 Flow Rate FiO2 11/21/20 04:30 98.8 67 24 118/57 (77) 92 11/21/20 00:00 98.1 71 24 130/61 (84) 93 11/20/20 20:18 Nasal Cannula 2.0 11/20/20 20:00 99.7 64 20 110/52 (71) 96 11/20/20 17:30 102.0 78 21 110/60 (77) 92 11/20/20 17:30 95 11/20/20 16:48 102.0 11/20/20 16:00 102.7 77 23 136/62 (86) 92 11/20/20 12:00 98.2 63 21 136/64 (88) 96 11/20/20 09:00 Nasal Cannula 2.0 Intake and Output 11/20/20 11/21/20 19:00 07:00 Intake Total 1040 ml 1175 ml Output Total 500 ml Balance 540 ml 1175 ml Intake Oral 500 ml 450 ml IV Total 540 ml 725 ml Output Urine Total 500 ml # Voids 4 # Bowel Movements 1 General Appearance: no acute distress HEENT: atraumatic Respiratory: lungs clear Cardiovascular: normal rate Abdomen: soft, non tender Microbiology Date/Time Source Procedure Growth Status 11/19/20 20:23 Nasopharynx SARS-CoV-2 RdRp Gene Assay - Final Complete 11/19/20 20:00 Blood Blood Culture - Preliminary NO GROWTH AFTER 24 HOURS Resulted 11/19/20 19:45 Blood Blood Culture - Preliminary NO GROWTH AFTER 24 HOURS Resulted Laboratory Tests 11/20/20 11:10: Miscellaneous Test [Pending], Hepatitis A IgM Antibody Negative, Hepatitis B Surface Antigen Negative, Hepatitis B Core IgM Antibody Negative, Hepatitis C Antibody <0.1, HIV (1&2) Antibody Rapid [Pending] 11/20/20 16:24: POC Whole Blood Glucose 125H 11/20/20 20:00: POC Whole Blood Glucose 121H 11/21/20 05:36: POC Whole Blood Glucose 114H 11/21/20 05:45: White Blood Count 7.0, Red Blood Count 4.27L, Hemoglobin 13.5L, Hematocrit 39.2L , Mean Corpuscular Volume 92, Mean Corpuscular Hemoglobin 31.6H, Mean Corpuscular Hemoglobin Concent 34.5, Red Cell Distribution Width 11.9, Platelet Count 122L, Mean Platelet Volume 9.0, Neutrophils (%) (Auto) , Lymphocytes (%) (Auto) , Monocytes (%) (Auto) , Eosinophils (%) (Auto) , Basophils (%) (Auto) , Neutrophils % (Manual) [Pending], Lymphocytes % (Manual) [Pending], Platelet Estimate [Pending], Platelet Morphology [Pending], Sodium Level 134L, Potassium Level 4.1, Chloride Level 102, Carbon Dioxide Level 23, Anion Gap 10, Blood Urea Nitrogen 30H, Creatinine 1.8H, Estimat Glomerular Filtration Rate 36.0, Glucose Level 115H, Hemoglobin A1c 6.9H, Uric Acid 4.7, Calcium Level 8.5, Phosphorus Level 2.4L, Magnesium Level 2.3, Iron Level [Pending], Unsaturated Iron Binding [Pending], Total Bilirubin 0.5, Gamma Glutamyl Transpeptidase 12, Aspartate Amino Transf (AST/SGOT) 278H, Alanine Aminotransferase (ALT/SGPT) 72, Alkaline Phosphatase 39L, Lactate Dehydrogenase 418H, Total Creatine Kinase 9878H, C- Reactive Protein, Quantitative 22.2H, Pro-B-Type Natriuretic Peptide 3134H, Total Protein 6.6, Albumin 2.8L, Globulin 3.8, Albumin/Globulin Ratio 0.7L, Triglycerides Level 145, Cholesterol Level 118, LDL Cholesterol 68, HDL Cholesterol 22L, Cholesterol/HDL Ratio 5.4H, Vitamin B12 Level [Pending], Vitamin D 25-Hydroxy [Pending], 25-Hydroxy Vitamin D2 [Pending], 25-Hydroxy Vitamin D3 [Pending], Folate [Pending], Calcitonin Level [Pending], Thyroid Stimulating Hormone (TSH) 0.986 Current Medications Medications (Trade) Dose Ordered Sig/Wilson Route PRN Reason Start Time Stop Time Status Last Admin Dose Admin Acetaminophen (Tylenol) 650 mg Q6H PRN ORAL Temp >100.5 1/21/21 04:30 12/20/20 04:29 11/20/20 16:18 Aspirin (ASA) 81 mg DAILY ORAL 11/21/20 09:00 01/05/21 08:59 Atorvastatin Calcium (Lipitor) 20 mg BEDTIME ORAL 11/20/20 21:00 02/18/21 20:59 11/20/20 20:39 Azithromycin 500 mg/Dextrose 275 ml @ 275 mls/hr Q24HRS IV 11/20/20 21:00 11/26/20 21:59 11/20/20 20:38 Ceftriaxone Sodium 1 gm/ Dextrose 55 ml @ 110 mls/hr Q24H IVPB 11/20/20 12:00 11/27/20 11:59 11/20/20 12:43 Clonazepam (KlonoPIN) 0.5 mg HSPRN PRN ORAL For Anxiety 11/20/20 17:30 11/27/20 17:29 Dextrose (Dextrose 50%) 25 ml Q30M PRN IV Hypoglycemia 11/20/20 04:30 02/18/21 04:29 Dextrose (Dextrose 50%) 50 ml Q30M PRN IV Hypoglycemia 11/20/20 04:30 02/18/21 04:29 Docusate Sodium (Colace) 100 mg THREE TIMES A DAY ORAL 11/20/20 13:00 12/20/20 12:59 11/20/20 17:37 Heparin Sodium (Porcine) (Heparin 5000 units/ml) 5,000 units EVERY 12 HOURS SUBQ 11/20/20 09:00 01/04/21 08:59 11/20/20 20:40 Insulin Aspart (NovoLOG) BEFORE MEALS AND HS SUBQ 11/20/20 06:30 02/18/21 06:29 11/20/20 06:26 Irbesartan (Avapro) 300 mg DAILY ORAL 11/21/20 09:00 02/19/21 08:59 Meclizine HCl (Antivert) 25 mg Q8H PRN ORAL for dizziness 11/20/20 17:30 12/20/20 17:29 Midodrine (Pro-Amatine) 5 mg THREE TIMES A DAY ORAL 11/20/20 20:00 02/18/21 19:59 11/20/20 20:38 Morphine Sulfate (Morphine Sulfate) 2 mg Q4H PRN IVP For Pain 11/20/20 04:30 11/27/20 04:29 Nebivolol (Bystolic) 2.5 mg DAILY ORAL 11/21/20 09:00 12/21/20 08:59 Non-Formulary Medication (Non-Formulary Med) 1 ea DAILY ORAL 11/21/20 09:00 12/21/20 08:59 UNV Non-Formulary Medication (Non-Formulary Med) 1 ea DAILY ORAL 11/21/20 09:00 12/21/20 08:59 UNV Pantoprazole (Protonix) 40 mg EVERY 12 HOURS ORAL 11/20/20 21:00 12/20/20 20:59 11/20/20 20:39 Ropinirole HCl (Requip) 1 mg DAILY ORAL 11/21/20 09:00 12/21/20 08:59 Sodium Chloride 1,000 ml @ 50 mls/hr Q20H IV 11/20/20 12:30 12/20/20 12:29 11/20/20 12:43 Tamsulosin HCl (Flomax) 0.4 mg TWICE A DAY ORAL 11/20/20 18:00 12/20/20 17:59 11/20/20 17:37 Vitamin D (Vitamin D) 5,000 unit DAILY ORAL 11/21/20 09:00 12/21/20 08:59 Assessment/Plan Assessment/Plan 1. COVID-19 pneumonia with history of fever (T-max= 101.5) -now on 5L NC saturating at 93%; was saturating at 83% on 2L NC this AM -Given x-ray findings and history of fever, we will continue broad-spectrum antibiotics for pneumonia coverage - He may be a candidate for steroids if hypoxia worsens 2. Weakness - Recommend PT evaluation -Monitor 3. SOUMYA -IV fluids -Monitor renal parameters 4. Diabetes mellitus with hyperglycemia -On insulin 5. Elevated inflammatory markers -On heparin, given elevated BUN, Cr 6. Obstructive sleep apnea -Patient reports using CPAP at night -We will continue CPAP at night with the setting of 12 10. New onset fever - Ahre=400.7 - no leukocytosis - monitor 11. DVT ppx - Venous duplex scheduled today The care for this patient was discussed with my supervising physician. Time spent for this case was approximately 31 minutes. Wm Marx Nov 21, 2020 08:43
[2020-11-21] MEDS: Heparin 5000 units/ml inj SUBQ SCH ×2 (08:46→20:20)
[2020-11-21] MEDS: Aspirin Baby 81mg ORAL SCH (08:47)
[2020-11-21] MEDS: Docusate 100mg cap ORAL SCH ×3 (08:47→17:43)
[2020-11-21] MEDS: Vitamin D 1000 units Tab ORAL SCH (08:47)
[2020-11-21] MEDS: Irbesartan 150mg tablet ORAL SCH (08:47)
[2020-11-21] MEDS: Bystolic 2.5mg Tab ORAL SCH (08:47)
[2020-11-21] MEDS: Tamsulosin 0.4mg cap ORAL SCH ×2 (08:47→17:43)
[2020-11-21 08:54] LABS: % IRON SATURATION 19 % (15-50); IRON 25 ug/dL (50-175); TOTAL IRON BINDING CAPACITY 133 ug/dL (250-450)
--- NOTE | 2020-11-21 09:52 | General Progress Note ---
Subjective Constitutional: Reports: weakness Allergies: Coded Allergies: No Known Allergies (Unverified , 10/20/12) All Systems: reviewed and negative except above Subjective calm in bed Objective Last 24 Hour Vital Signs Date Time Temp Pulse Resp B/P (MAP) Pulse Ox O2 Delivery O2 Flow Rate FiO2 11/21/20 08:47 131/80 11/21/20 08:00 99.3 63 22 131/80 (97) 95 11/21/20 04:30 98.8 67 24 118/57 (77) 92 11/21/20 00:00 98.1 71 24 130/61 (84) 93 11/20/20 20:18 Nasal Cannula 2.0 11/20/20 20:00 99.7 64 20 110/52 (71) 96 11/20/20 17:30 102.0 78 21 110/60 (77) 92 11/20/20 17:30 95 11/20/20 16:48 102.0 11/20/20 16:00 102.7 77 23 136/62 (86) 92 11/20/20 12:00 98.2 63 21 136/64 (88) 96 Intake and Output 11/20/20 11/21/20 19:00 07:00 Intake Total 1040 ml 1175 ml Output Total 500 ml Balance 540 ml 1175 ml Intake Oral 500 ml 450 ml IV Total 540 ml 725 ml Output Urine Total 500 ml # Voids 4 # Bowel Movements 1 Laboratory Tests 11/20/20 11:10: Miscellaneous Test [Pending], Hepatitis A IgM Antibody Negative, Hepatitis B Surface Antigen Negative, Hepatitis B Core IgM Antibody Negative, Hepatitis C Antibody <0.1, HIV (1&2) Antibody Rapid [Pending] 11/20/20 16:24: POC Whole Blood Glucose 125H 11/20/20 20:00: POC Whole Blood Glucose 121H 11/21/20 05:36: POC Whole Blood Glucose 114H 11/21/20 05:45: White Blood Count 7.0, Red Blood Count 4.27L, Hemoglobin 13.5L, Hematocrit 39.2L , Mean Corpuscular Volume 92, Mean Corpuscular Hemoglobin 31.6H, Mean Corpuscular Hemoglobin Concent 34.5, Red Cell Distribution Width 11.9, Platelet Count 122L, Mean Platelet Volume 9.0, Neutrophils (%) (Auto) , Lymphocytes (%) (Auto) , Monocytes (%) (Auto) , Eosinophils (%) (Auto) , Basophils (%) (Auto) , Differential Total Cells Counted 100, Neutrophils % (Manual) 91H, Lymphocytes % (Manual) 5L, Monocytes % (Manual) 4, Eosinophils % (Manual) 0, Basophils % (Manual) 0, Band Neutrophils 0, Platelet Estimate DecreasedL, Platelet Morphology Normal, Red Blood Cell Morphology Normal, Sodium Level 134L, Potassium Level 4.1, Chloride Level 102, Carbon Dioxide Level 23, Anion Gap 10, Blood Urea Nitrogen 30H, Creatinine 1.8H, Estimat Glomerular Filtration Rate 36.0, Glucose Level 115H, Hemoglobin A1c 6.9H, Uric Acid 4.7, Calcium Level 8.5, Phosphorus Level 2.4L, Magnesium Level 2.3, Iron Level 25L, Total Iron Binding Capacity 133L, Percent Iron Saturation 19, Unsaturated Iron Binding 108L, Total Bilirubin 0.5, Gamma Glutamyl Transpeptidase 12, Aspartate Amino Transf (AST/SGOT) 278H, Alanine Aminotransferase (ALT/SGPT) 72, Alkaline Phosphatase 39L, Lactate Dehydrogenase 418H, Total Creatine Kinase 9878H, C-Reactive Protein, Quantitative 22.2H, Pro-B-Type Natriuretic Peptide 3134H, Total Protein 6.6, Albumin 2.8L, Globulin 3.8, Albumin/Globulin Ratio 0.7L, Triglycerides Level 145, Cholesterol Level 118, LDL Cholesterol 68, HDL Cholesterol 22L, Cho lesterol/HDL Ratio 5.4H, Vitamin B12 Level 744, Vitamin D 25-Hydroxy [Pending], 25-Hydroxy Vitamin D2 [Pending], 25-Hydroxy Vitamin D3 [Pending], Folate 19.9, Calcitonin Level [Pending], Thyroid Stimulating Hormone (TSH) 0.986 Height (Feet): 5 Height (Inches): 8.00 Weight (Pounds): 190 General Appearance: lethargic EENT: normal ENT inspection Neck: normal alignment Cardiovascular: normal peripheral pulses, normal rate, regular rhythm Respiratory/Chest: chest wall non-tender, lungs clear, normal breath sounds Abdomen: normal bowel sounds, non tender, soft Extremities: normal inspection Edema: no edema noted Arm (L), no edema noted Arm (R), no edema noted Leg (L), no edema noted Leg (R), no edema noted Pedal (L), no edema noted Pedal (R), no edema noted Generalized Neurologic: motor weakness Skin: normal pigmentation, warm/dry Assessment/Plan Problem List: (1) HTN (hypertension) ICD Codes: I10 - Essential (primary) hypertension SNOMED: 54121155 (2) Diabetes ICD Codes: E11.9 - Type 2 diabetes mellitus without complications SNOMED: 38137326 (3) Weak ICD Codes: R53.1 - Weakness SNOMED: 35627684 (4) Fever ICD Codes: R50.9 - Fever, unspecified SNOMED: 901840791 (5) COVID-19 ICD Codes: U07.1 - COVID-19 SNOMED: 881603988 (6) Renal failure ICD Codes: N19 - Unspecified kidney failure SNOMED: 99311448 (7) Pneumonia ICD Codes: J18.9 - Pneumonia, unspecified organism SNOMED: 322268225 (8) Dehydration ICD Codes: E86.0 - Dehydration SNOMED: 58008435 (9) CVA (cerebral infarction) ICD Codes: I63.9 - CVA (cerebral infarction) SNOMED: 093665590 Status: unchanged Assessment/Plan: o2 pulm tx abx bp bs control cbc bmp am Ziggy Carlson DO Nov 21, 2020 09:52
[2020-11-21] MEDS ORDERED: Sodium Phosphate 15 MM in NS 275 ML IVPB SCH (10:00)
--- NOTE | 2020-11-21 11:40 | Infectious Diseases Prog Note ---
Assessment/Plan Assessment/Plan antibiotics : ceftraixone, azithromycin A 1. covid 19 pneumonia on 5 liters O2 with 95 % saturation 2. COPD 3. hyperlipidemia 4. BPH P 1. ivermectin x 1 dose 2. continue dexamethasone 3. d/c ceftriaxone, azithromycin 4. continue isolation Subjective ROS Limited/Unobtainable: Yes Allergies: Coded Allergies: No Known Allergies (Unverified , 10/20/12) Objective Last 24 Hour Vital Signs Date Time Temp Pulse Resp B/P (MAP) Pulse Ox O2 Delivery O2 Flow Rate FiO2 11/21/20 09:00 Nasal Cannula 5.0 11/21/20 08:47 131/80 11/21/20 08:00 99.3 63 22 131/80 (97) 95 11/21/20 04:30 98.8 67 24 118/57 (77) 92 11/21/20 00:00 98.1 71 24 130/61 (84) 93 11/20/20 20:18 Nasal Cannula 2.0 11/20/20 20:00 99.7 64 20 110/52 (71) 96 11/20/20 17:30 102.0 78 21 110/60 (77) 92 11/20/20 17:30 95 11/20/20 16:48 102.0 11/20/20 16:00 102.7 77 23 136/62 (86) 92 11/20/20 12:00 98.2 63 21 136/64 (88) 96 Height (Feet): 5 Height (Inches): 8.00 Weight (Pounds): 190 Microbiology Date/Time Source Procedure Growth Status 11/19/20 20:23 Nasopharynx SARS-CoV-2 RdRp Gene Assay - Final Complete 11/19/20 20:00 Blood Blood Culture - Preliminary NO GROWTH AFTER 24 HOURS Resulted 11/19/20 19:45 Blood Blood Culture - Preliminary NO GROWTH AFTER 24 HOURS Resulted Laboratory Tests Test 11/20/20 16:24 11/20/20 20:00 11/21/20 05:36 11/21/20 05:45 POC Whole Blood Glucose 125 MG/DL (74-106) H 121 MG/DL (74-106) H 114 MG/DL (74-106) H White Blood Count 7.0 K/UL (4.8-10.8) Red Blood Count 4.27 M/UL (4.70-6.10) L Hemoglobin 13.5 G/DL (14.2-18.0) L Hematocrit 39.2 % (42.0-52.0) L Mean Corpuscular Volume 92 FL (80-99) Mean Corpuscular Hemoglobin 31.6 PG (27.0-31.0) H Mean Corpuscular Hemoglobin Concent 34.5 G/DL (32.0-36.0) Red Cell Distribution Width 11.9 % (11.6-14.8) Platelet Count 122 K/UL (150-450) L Mean Platelet Volume 9.0 FL (6.5-10.1) Neutrophils (%) (Auto) % (45.0-75.0) Lymphocytes (%) (Auto) % (20.0-45.0) Monocytes (%) (Auto) % (1.0-10.0) Eosinophils (%) (Auto) % (0.0-3.0) Basophils (%) (Auto) % (0.0-2.0) Differential Total Cells Counted 100 Neutrophils % (Manual) 91 % (45-75) H Lymphocytes % (Manual) 5 % (20-45) L Monocytes % (Manual) 4 % (1-10) Eosinophils % (Manual) 0 % (0-3) Basophils % (Manual) 0 % (0-2) Band Neutrophils 0 % (0-8) Platelet Estimate Decreased L Platelet Morphology Normal Red Blood Cell Morphology Normal Sodium Level 134 MMOL/L (136-145) L Potassium Level 4.1 MMOL/L (3.5-5.1) Chloride Level 102 MMOL/L (98-107) Carbon Dioxide Level 23 MMOL/L (21-32) Anion Gap 10 mmol/L (5-15) Blood Urea Nitrogen 30 mg/dL (7-18) H Creatinine 1.8 MG/DL (0.55-1.30) H Estimat Glomerular Filtration Rate 36.0 mL/min (>60) Glucose Level 115 MG/DL (74-106) H Hemoglobin A1c 6.9 % (4.3-6.0) H Uric Acid 4.7 MG/DL (2.6-7.2) Calcium Level 8.5 MG/DL (8.5-10.1) Phosphorus Level 2.4 MG/DL (2.5-4.9) L Magnesium Level 2.3 MG/DL (1.8-2.4) Iron Level 25 ug/dL (50-175) L Total Iron Binding Capacity 133 ug/dL (250-450) L Percent Iron Saturation 19 % (15-50) Unsaturated Iron Binding 108 ug/dL (112-346) L Total Bilirubin 0.5 MG/DL (0.2-1.0) Gamma Glutamyl Transpeptidase 12 U/L (5-85) Aspartate Amino Transf (AST/SGOT) 278 U/L (15-37) H Alanine Aminotransferase (ALT/SGPT) 72 U/L (12-78) Alkaline Phosphatase 39 U/L (46-116) L Lactate Dehydrogenase 418 U/L (81-234) H Total Creatine Kinase 9878 U/L (26-308) H C-Reactive Protein, Quantitative 22.2 mg/dL (0.00-0.90) H Pro-B-Type Natriuretic Peptide 3134 pg/mL (0-125) H Total Protein 6.6 G/DL (6.4-8.2) Albumin 2.8 G/DL (3.4-5.0) L Globulin 3.8 g/dL Albumin/Globulin Ratio 0.7 (1.0-2.7) L Triglycerides Level 145 MG/DL (30-150) Cholesterol Level 118 MG/DL (< 200) LDL Cholesterol 68 mg/dL (<100) HDL Cholesterol 22 MG/DL (40-60) L Cholesterol/HDL Ratio 5.4 (3.3-4.4) H Vitamin B12 Level 744 PG/ML (193-986) Vitamin D 25-Hydroxy Pending 25-Hydroxy Vitamin D2 Pending 25-Hydroxy Vitamin D3 Pending Folate 19.9 NG/ML (8.6-58.9) Calcitonin Level Pending Thyroid Stimulating Hormone (TSH) 0.986 uiU/mL (0.358-3.740) Current Medications Medications (Trade) Dose Ordered Sig/Wilson Route PRN Reason Start Time Stop Time Status Last Admin Dose Admin Acetaminophen (Tylenol) 650 mg Q6H PRN ORAL Temp >100.5 11/20/20 04:30 12/20/20 04:29 11/20/20 16:18 Aspirin (ASA) 81 mg DAILY ORAL 11/21/20 09:00 01/05/21 08:59 11/21/20 08:47 Atorvastatin Calcium (Lipitor) 20 mg BEDTIME ORAL 11/20/20 21:00 02/18/21 20:59 11/20/20 20:39 Azithromycin 500 mg/Dextrose 275 ml @ 275 mls/hr Q24HRS IV 11/20/20 21:00 11/26/20 21:59 11/20/20 20:38 Ceftriaxone Sodium 1 gm/ Dextrose 55 ml @ 110 mls/hr Q24H IVPB 11/20/20 12:00 11/27/20 11:59 11/20/20 12:43 Clonazepam (KlonoPIN) 0.5 mg HSPRN PRN ORAL For Anxiety 11/20/20 17:30 11/27/20 17:29 Dexamethasone Sodium Phosphate (Decadron 10mg/ ml Inj) 6 mg DAILY IV 11/21/20 11:15 02/19/21 11:14 UNV Dextrose (Dextrose 50%) 25 ml Q30M PRN IV Hypoglycemia 11/20/20 04:30 02/18/21 04:29 Dextrose (Dextrose 50%) 50 ml Q30M PRN IV Hypoglycemia 11/20/20 04:30 02/18/21 04:29 Docusate Sodium (Colace) 100 mg THREE TIMES A DAY ORAL 11/20/20 13:00 12/20/20 12:59 11/21/20 08:47 Heparin Sodium (Porcine) (Heparin 5000 units/ml) 5,000 units EVERY 12 HOURS SUBQ 11/20/20 09:00 01/04/21 08:59 11/21/20 08:46 Insulin Aspart (NovoLOG) BEFORE MEALS AND HS SUBQ 11/20/20 06:30 02/18/21 06:29 11/20/20 06:26 Irbesartan (Avapro) 300 mg DAILY ORAL 11/21/20 09:00 02/19/21 08:59 11/21/20 08:47 Meclizine HCl (Antivert) 25 mg Q8H PRN ORAL for dizziness 11/20/20 17:30 12/20/20 17:29 Midodrine (Pro-Amatine) 5 mg THREE TIMES A DAY ORAL 11/20/20 20:00 02/18/21 19:59 11/21/20 08:47 Morphine Sulfate (Morphine Sulfate) 2 mg Q4H PRN IVP For Pain 11/20/20 04:30 11/27/20 04:29 Nebivolol (Bystolic) 2.5 mg DAILY ORAL 11/21/20 09:00 12/21/20 08:59 11/21/20 08:47 Non-Formulary Medication (Non-Formulary Med) 1 ea DAILY ORAL 11/21/20 09:00 12/21/20 08:59 UNV Non-Formulary Medication (Non-Formulary Med) 1 ea DAILY ORAL 11/21/20 09:00 12/21/20 08:59 UNV Pantoprazole (Protonix) 40 mg EVERY 12 HOURS ORAL 11/20/20 21:00 12/20/20 20:59 11/21/20 08:47 Ropinirole HCl (Requip) 1 mg DAILY ORAL 11/21/20 09:00 12/21/20 08:59 11/21/20 08:47 Sodium Chloride 1,000 ml @ 50 mls/hr Q20H IV 11/20/20 12:30 12/20/20 12:29 11/21/20 08:48 Tamsulosin HCl (Flomax) 0.4 mg TWICE A DAY ORAL 11/20/20 18:00 12/20/20 17:59 11/21/20 08:47 Vitamin D (Vitamin D) 5,000 unit DAILY ORAL 11/21/20 09:00 12/21/20 08:59 11/21/20 08:47 Eliud Jennings MD Nov 21, 2020 11:40
[2020-11-21] MEDS: dexAMETHasone 10mg/ml Inj IV SCH (12:15)
--- NOTE | 2020-11-21 12:19 | NUR ---
P.T NOTE: P.T EVALUATION COMPLETED AND TX INITIATED. PLEASE REFER TO P.T EVALUATION FOR CURRENT FUNCTIONAL STATUS.
--- NOTE | 2020-11-21 13:09 | NUR ---
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
--- NOTE | 2020-11-21 13:36 | Nephrology Progress Note ---
Assessment/Plan Problem List: (1) Renal failure (ARF), acute on chronic (2) Dehydration (3) COVID-19 (4) Lactic acidosis Assessment Renal failure, acute Possible underlying chronic kidney disease Dehydration COVID-19 infection, pneumonia Lactic acidosis 3+ proteinuria, hematuria with too many RBCs in the urine Plan November 21: Labs reviewed. Serum creatinine 1.8. Low phosphorus addressed. Patient full code. Continue per consultants. Previously: Slow hydration Monitor renal parameters Monitor electrolytes Keep the blood pressure blood sugar in check Antibiotics per ID Avoid nephrotoxic's Per orders Objective Objective Last 24 Hour Vital Signs Date Time Temp Pulse Resp B/P (MAP) Pulse Ox O2 Delivery O2 Flow Rate FiO2 11/21/20 12:00 97.3 63 24 110/56 (74) 95 11/21/20 09:00 Nasal Cannula 5.0 11/21/20 08:47 131/80 11/21/20 08:00 99.3 63 22 131/80 (97) 95 11/21/20 04:30 98.8 67 24 118/57 (77) 92 11/21/20 00:00 98.1 71 24 130/61 (84) 93 11/20/20 20:18 Nasal Cannula 2.0 11/20/20 20:00 99.7 64 20 110/52 (71) 96 11/20/20 17:30 102.0 78 21 110/60 (77) 92 11/20/20 17:30 95 11/20/20 16:48 102.0 11/20/20 16:00 102.7 77 23 136/62 (86) 92 Intake and Output 11/20/20 11/21/20 19:00 07:00 Intake Total 1040 ml 1175 ml Output Total 500 ml Balance 540 ml 1175 ml Intake Oral 500 ml 450 ml IV Total 540 ml 725 ml Output Urine Total 500 ml # Voids 4 # Bowel Movements 1 Laboratory Tests 11/20/20 16:24: POC Whole Blood Glucose 125H 11/20/20 20:00: POC Whole Blood Glucose 121H 11/21/20 05:36: POC Whole Blood Glucose 114H 11/21/20 05:45: White Blood Count 7.0, Red Blood Count 4.27L, Hemoglobin 13.5L, Hematocrit 39.2L , Mean Corpuscular Volume 92, Mean Corpuscular Hemoglobin 31.6H, Mean Corpuscular Hemoglobin Concent 34.5, Red Cell Distribution Width 11.9, Platelet Count 122L, Mean Platelet Volume 9.0, Neutrophils (%) (Auto) , Lymphocytes (%) (Auto) , Monocytes (%) (Auto) , Eosinophils (%) (Auto) , Basophils (%) (Auto) , Differential Total Cells Counted 100, Neutrophils % (Manual) 91H, Lymphocytes % (Manual) 5L, Monocytes % (Manual) 4, Eosinophils % (Manual) 0, Basophils % (Manual) 0, Band Neutrophils 0, Platelet Estimate DecreasedL, Platelet Morphology Normal, Red Blood Cell Morphology Normal, Sodium Level 134L, Potassium Level 4.1, Chloride Level 102, Carbon Dioxide Level 23, Anion Gap 10, Blood Urea Nitrogen 30H, Creatinine 1.8H, Estimat Glomerular Filtration Rate 36.0, Glucose Level 115H, Hemoglobin A1c 6.9H, Uric Acid 4.7, Calcium Level 8.5, Phosphorus Level 2.4L, Magnesium Level 2.3, Iron Level 25L, Total Iron Binding Capacity 133L, Percent Iron Saturation 19, Unsaturated Iron Binding 108L, Total Bilirubin 0.5, Gamma Glutamyl Transpeptidase 12, Aspartate Amino Transf (AST/SGOT) 278H, Alanine Aminotransferase (ALT/SGPT) 72, Alkaline Phosphatase 39L, Lactate Dehydrogenase 418H, Total Creatine Kinase 9878H, C-Reactive Protein, Quantitative 22.2H, Pro-B-Type Natriuretic Peptide 3134H, Total Protein 6.6, Albumin 2.8L, Globulin 3.8, Albumin/Globulin Ratio 0.7L, Triglycerides Level 145, Cholesterol Level 118, LDL Cholesterol 68, HDL Cholesterol 22L, Cholesterol/HDL Ratio 5.4H, Vitamin B12 Level 744, Vitamin D 25-Hydroxy [Pending], 25-Hydroxy Vitamin D2 [Pending], 25-Hydroxy Vitamin D3 [Pending], Folate 19.9, Calcitonin Level [Pending], Thyroid Stimulating Hormone (TSH) 0.986 Height (Feet): 5 Height (Inches): 8.00 Weight (Pounds): 190 Ac Castro MD Nov 21, 2020 13:36
--- NOTE | 2020-11-21 15:15 | Diagnostic Imaging Report ---
Indication:Leg pain and swelling Technique: Grayscale and duplex Doppler imaging of the veins in both lower extremities performed in real time utilizing compression and augmentation. Comparison: None Findings: Duplex Doppler interrogation of the veins in both lower extremity is performed from the common femoral vein to the popliteal vein. Normal venous compressibility demonstrated throughout. No thrombus identified. Waveform analysis shows good respiratory phasicity and augmentation. IMPRESSION: No evidence of deep venous thrombosis involving the lower extremities. This corresponds with the preliminary report generated by the scanning sleep technologist.
--- NOTE | 2020-11-21 16:09 | NUR ---
NURSE NOTES: Spoke to Alejandra, grand daughter regarding Joelle Silva home meds. She will find out who is able to drop off and call me back.
--- NOTE | 2020-11-21 18:08 | NUR ---
NURSE NOTES: Spoke to Pt's son regarding home meds. He said he is not sure he can bring the meds tomorrow. Spoke to Maura, Pharmacist.
--- NOTE | 2020-11-21 19:12 | NUR ---
NURSE HAND-OFF: Important Events on Shift:NC 4L/min Patient Status: stable Diet: CCHO Low sodium Pending Orders: n/a Pending Results/Labs:n/a Pending MD notification:n/a Latest Vital Signs: Temperature 99.3 , Pulse 58 , B/P 104 /56 , Respiratory Rate 24 , O2 SAT 96 , Room Air, O2 Flow Rate 5.0 . Vital Sign Comment: stable Latest Delarosa Fall Score: 45 Fall Risk: High Risk Safety Measures: Call light Within Reach, Bed Alarm Zone 1, Side Rails Side Rails x2, Bed position Low and Locked. Fall Precautions: Door Sign Patient Fall Education Report given to CAMRON Oliveira.
--- NOTE | 2020-11-21 19:48 | NUR ---
NURSE NOTES: Received patient comfortably resting in bed without SOB nor complaints. Kept clean and dry.
[2020-11-21] MEDS: Atorvastatin 20mg tab ORAL SCH (20:18)
[2020-11-21] MEDS ORDERED: AZELASTINE205.5 MCG/ NS (21:27)
[2020-11-21] MEDS ORDERED: MUCINEX DM ER1 EAC1 PO (21:27)
[2020-11-21] MEDS: Meclizine 25mg tab ORAL SCH (21:50)
--- NOTE | 2020-11-21 22:00 | NUR ---
NURSE NOTES: Patient refuses CPAP
[2020-11-22 00:12] VITALS: BP 106/54
[2020-11-22 04:33] VITALS: BP 115/57
[2020-11-22] MEDS: Meclizine 25mg tab ORAL SCH ×3 (05:10→21:59)
[2020-11-22] MEDS: NovoLOG Insulin Flexpen SUBQ SCH ×4 (05:37→21:00)
--- NOTE | 2020-11-22 06:00 | NUR ---
NURSE NOTES: Patient is on Nonrebreather mask at 100% saturating 95 to 96%.
--- NOTE | 2020-11-22 07:06 | NUR ---
HAND-OFF: Report given to CAMRON Stroud/ Caitlin Tafoya RN.
--- NOTE | 2020-11-22 07:50 | NUR ---
NURSE NOTES: received report from CAMRON Oliveira. Patient in bed. alert and oriented. forgetful. removed nonrebreather mask. O2 sat 88 to 89% on room air. applied 5L via NC. O2sat went up to 92%. Patient is non compliance using Oxygen. Educated patient to wear Oxygen at all times. patient verbalized understanding. no pain at this time. IV on LFA 22 running NS@50/hr. IV site intact. no infiltrated. no bleeding. bed rest. bed in the lowest position and locked. call light within reach. will continue to provide plan of care.
[2020-11-22 07:55] LABS: HEMATOCRIT 37.3 % (42.0-52.0); HEMOGLOBIN 12.7 G/DL (14.2-18.0); MEAN CORPUSCULAR VOLUME 92 FL (80-99); PLATELET COUNT 126 K/UL (150-450); RED BLOOD COUNT 4.05 M/UL (4.70-6.10); RED CELL DISTRIBUTION WIDTH 11.9 % (11.6-14.8); WHITE BLOOD COUNT 6.4 K/UL (4.8-10.8)
[2020-11-22 08:00] VITALS: BP 124/55
[2020-11-22 08:31] LABS: ALBUMIN 2.5 G/DL (3.4-5.0); ALBUMIN/GLOBULIN RATIO 0.7 (1.0-2.7); BILIRUBIN,TOTAL 0.6 MG/DL (0.2-1.0); CALCIUM 8.5 MG/DL (8.5-10.1); CREATININE 1.7 MG/DL (0.55-1.30); POTASSIUM 4.6 MMOL/L (3.5-5.1)
[2020-11-22] MEDS: Docusate 100mg cap ORAL SCH ×3 (08:49→17:03)
[2020-11-22] MEDS: dexAMETHasone 10mg/ml Inj IV SCH (08:49)
[2020-11-22] MEDS: Irbesartan 150mg tablet ORAL SCH (08:50)
[2020-11-22] MEDS: Aspirin Baby 81mg ORAL SCH (08:50)
[2020-11-22] MEDS: Vitamin D 1000 units Tab ORAL SCH (08:50)
[2020-11-22] MEDS: Bystolic 2.5mg Tab ORAL SCH (08:51)
[2020-11-22] MEDS: Tamsulosin 0.4mg cap ORAL SCH ×2 (08:51→17:03)
[2020-11-22] MEDS: Heparin 5000 units/ml inj SUBQ SCH ×2 (08:52→21:58)
[2020-11-22] MEDS: TRADJENTA 5 MG ORAL SCH (08:53)
[2020-11-22] MEDS ORDERED: Bystolic 2.5mg Tab ORAL SCH (09:00)
[2020-11-22] MEDS ORDERED: Tamsulosin 0.4mg cap ORAL SCH (09:00)
--- NOTE | 2020-11-22 10:04 | Infectious Diseases Prog Note ---
Assessment/Plan Assessment/Plan A 1. COVID19 pneumonia 2. COPD 3. hyperlipidemia 4. BPH P 1.Received ivermectin x 1 dose 2. continue dexamethasone 3. continue isolation Subjective ROS Limited/Unobtainable: Yes Constitutional: Denies: fever Respiratory: Reports: dry cough Allergies: Coded Allergies: No Known Allergies (Unverified , 10/20/12) Objective Last 24 Hour Vital Signs Date Time Temp Pulse Resp B/P (MAP) Pulse Ox O2 Delivery O2 Flow Rate FiO2 11/22/20 08:50 124/55 11/22/20 08:00 98.1 65 24 124/55 (78) 92 11/22/20 04:33 97.5 80 21 115/57 (76) 90 11/22/20 00:12 97.9 55 16 106/54 (71) 94 11/21/20 20:00 97.7 54 16 99/57 (71) 95 11/21/20 20:00 Nasal Cannula 2.0 11/21/20 16:00 99.3 58 24 104/56 (72) 96 11/21/20 12:00 97.3 63 24 110/56 (74) 95 Height (Feet): 5 Height (Inches): 8.00 Weight (Pounds): 190 HEENT: mucous membranes moist Respiratory/Chest: no respiratory distress, other - oxygen by nasal cannula Cardiovascular: normal rate Abdomen: soft, non tender Neurologic/Psychiatric: alert, responsive Microbiology Date/Time Source Procedure Growth Status 11/19/20 20:23 Nasopharynx SARS-CoV-2 RdRp Gene Assay - Final Complete 11/19/20 20:00 Blood Blood Culture - Preliminary NO GROWTH AFTER 48 HOURS Resulted 11/19/20 19:45 Blood Blood Culture - Preliminary NO GROWTH AFTER 48 HOURS Resulted Laboratory Tests Test 11/21/20 12:11 11/21/20 16:44 11/21/20 20:41 11/22/20 05:17 POC Whole Blood Glucose 115 MG/DL (74-106) H 137 MG/DL (74-106) H Pending Pending Test 11/22/20 06:22 White Blood Count 6.4 K/UL (4.8-10.8) Red Blood Count 4.05 M/UL (4.70-6.10) L Hemoglobin 12.7 G/DL (14.2-18.0) L Hematocrit 37.3 % (42.0-52.0) L Mean Corpuscular Volume 92 FL (80-99) Mean Corpuscular Hemoglobin 31.4 PG (27.0-31.0) H Mean Corpuscular Hemoglobin Concent 34.1 G/DL (32.0-36.0) Red Cell Distribution Width 11.9 % (11.6-14.8) Platelet Count 126 K/UL (150-450) L Mean Platelet Volume 8.9 FL (6.5-10.1) Neutrophils (%) (Auto) % (45.0-75.0) Lymphocytes (%) (Auto) % (20.0-45.0) Monocytes (%) (Auto) % (1.0-10.0) Eosinophils (%) (Auto) % (0.0-3.0) Basophils (%) (Auto) % (0.0-2.0) Differential Total Cells Counted 100 Neutrophils % (Manual) 90 % (45-75) H Lymphocytes % (Manual) 6 % (20-45) L Monocytes % (Manual) 4 % (1-10) Eosinophils % (Manual) 0 % (0-3) Basophils % (Manual) 0 % (0-2) Band Neutrophils 0 % (0-8) Platelet Estimate Decreased L Platelet Morphology Normal Red Blood Cell Morphology Normal Sodium Level 135 MMOL/L (136-145) L Potassium Level 4.6 MMOL/L (3.5-5.1) Chloride Level 103 MMOL/L (98-107) Carbon Dioxide Level 23 MMOL/L (21-32) Anion Gap 9 mmol/L (5-15) Blood Urea Nitrogen 34 mg/dL (7-18) H Creatinine 1.7 MG/DL (0.55-1.30) H Estimat Glomerular Filtration Rate 38.5 mL/min (>60) Glucose Level 115 MG/DL (74-106) H Calcium Level 8.5 MG/DL (8.5-10.1) Phosphorus Level 2.5 MG/DL (2.5-4.9) Total Bilirubin 0.6 MG/DL (0.2-1.0) Aspartate Amino Transf (AST/SGOT) 186 U/L (15-37) H Alanine Aminotransferase (ALT/SGPT) 63 U/L (12-78) Alkaline Phosphatase 37 U/L (46-116) L Total Protein 6.3 G/DL (6.4-8.2) L Albumin 2.5 G/DL (3.4-5.0) L Globulin 3.8 g/dL Albumin/Globulin Ratio 0.7 (1.0-2.7) L Current Medications Medications (Trade) Dose Ordered Sig/Wilson Route PRN Reason Start Time Stop Time Status Last Admin Dose Admin Acetaminophen (Tylenol) 650 mg Q6H PRN ORAL Temp >100.5 11/20/20 04:30 12/20/20 04:29 11/20/20 16:18 Aspirin (ASA) 81 mg DAILY ORAL 11/21/20 09:00 01/05/21 08:59 11/22/20 08:50 Atorvastatin Calcium (Lipitor) 20 mg BEDTIME ORAL 11/20/20 21:00 02/18/21 20:59 11/21/20 20:18 Clonazepam (KlonoPIN) 0.5 mg HSPRN PRN ORAL For Anxiety 11/20/20 17:30 11/27/20 17:29 Dexamethasone Sodium Phosphate (Decadron 10mg/ ml Inj) 6 mg DAILY IV 11/21/20 11:15 11/30/20 09:01 11/22/20 08:49 Dextrose (Dextrose 50%) 25 ml Q30M PRN IV Hypoglycemia 11/20/20 04:30 02/18/21 04:29 Dextrose (Dextrose 50%) 50 ml Q30M PRN IV Hypoglycemia 11/20/20 04:30 02/18/21 04:29 Docusate Sodium (Colace) 100 mg THREE TIMES A DAY ORAL 11/20/20 13:00 12/20/20 12:59 11/22/20 08:49 Heparin Sodium (Porcine) (Heparin 5000 units/ml) 5,000 units EVERY 12 HOURS SUBQ 11/20/20 09:00 01/04/21 08:59 11/22/20 08:52 Insulin Aspart (NovoLOG) BEFORE MEALS AND HS SUBQ 11/20/20 06:30 02/18/21 06:29 11/21/20 20:45 Irbesartan (Avapro) 300 mg DAILY ORAL 11/21/20 09:00 02/19/21 08:59 11/22/20 08:50 Meclizine HCl (Antivert) 25 mg EVERY 8 HOURS ORAL 11/21/20 22:00 12/21/20 21:59 11/22/20 05:10 Meclizine HCl (Antivert) 25 mg Q8H PRN ORAL for dizziness 11/20/20 17:30 12/20/20 17:29 Midodrine (Pro-Amatine) 5 mg THREE TIMES A DAY ORAL 11/20/20 20:00 02/18/21 19:59 11/22/20 08:50 Morphine Sulfate (Morphine Sulfate) 2 mg Q4H PRN IVP For Pain 11/20/20 04:30 11/27/20 04:29 Nebivolol (Bystolic) 2.5 mg DAILY ORAL 11/21/20 09:00 12/21/20 08:59 11/22/20 08:51 Pantoprazole (Protonix) 40 mg EVERY 12 HOURS ORAL 11/20/20 21:00 12/20/20 20:59 11/22/20 08:51 Patient Own Medication (Patient's Own Med) 1 ea DAILY ORAL 11/22/20 09:00 12/22/20 08:59 11/22/20 08:53 Patient Own Medication (Patient's Own Med) 1 ea DAILY ORAL 11/22/20 09:00 12/22/20 08:59 11/22/20 08:53 Ropinirole HCl (Requip) 1 mg DAILY ORAL 11/21/20 09:00 12/21/20 08:59 11/22/20 08:51 Sodium Chloride 1,000 ml @ 50 mls/hr Q20H IV 11/20/20 12:30 12/20/20 12:29 11/21/20 20:18 Tamsulosin HCl (Flomax) 0.4 mg TWICE A DAY ORAL 11/20/20 18:00 12/20/20 17:59 11/22/20 08:51 Vitamin D (Vitamin D) 5,000 unit DAILY ORAL 11/21/20 09:00 12/21/20 08:59 11/22/20 08:50 Fawad Talbot MD Nov 22, 2020 10:04
--- NOTE | 2020-11-22 10:21 | General Progress Note ---
Subjective Constitutional: Reports: weakness Allergies: Coded Allergies: No Known Allergies (Unverified , 10/20/12) All Systems: reviewed and negative except above Subjective calm in bed Objective Last 24 Hour Vital Signs Date Time Temp Pulse Resp B/P (MAP) Pulse Ox O2 Delivery O2 Flow Rate FiO2 11/22/20 08:50 124/55 11/22/20 08:00 98.1 65 24 124/55 (78) 92 11/22/20 04:33 97.5 80 21 115/57 (76) 90 11/22/20 00:12 97.9 55 16 106/54 (71) 94 11/21/20 20:00 97.7 54 16 99/57 (71) 95 11/21/20 20:00 Nasal Cannula 2.0 11/21/20 16:00 99.3 58 24 104/56 (72) 96 11/21/20 12:00 97.3 63 24 110/56 (74) 95 Intake and Output 11/21/20 11/22/20 19:00 07:00 Intake Total 960 ml 1000 ml Balance 960 ml 1000 ml Intake Oral 360 ml IV Total 600 ml 600 ml Other 400 ml # Voids 2 # Bowel Movements 1 Laboratory Tests 11/21/20 12:11: POC Whole Blood Glucose 115H 11/21/20 16:44: POC Whole Blood Glucose 137H 11/21/20 20:41: POC Whole Blood Glucose [Pending] 11/22/20 05:17: POC Whole Blood Glucose [Pending] 11/22/20 06:22: White Blood Count 6.4, Red Blood Count 4.05L, Hemoglobin 12.7L, Hematocrit 37.3L , Mean Corpuscular Volume 92, Mean Corpuscular Hemoglobin 31.4H, Mean Corpuscular Hemoglobin Concent 34.1, Red Cell Distribution Width 11.9, Platelet Count 126L, Mean Platelet Volume 8.9, Neutrophils (%) (Auto) , Lymphocytes (%) (Auto) , Monocytes (%) (Auto) , Eosinophils (%) (Auto) , Basophils (%) (Auto) , Differential Total Cells Counted 100, Neutrophils % (Manual) 90H, Lymphocytes % (Manual) 6L, Monocytes % (Manual) 4, Eosinophils % (Manual) 0, Basophils % (Manual) 0, Band Neutrophils 0, Platelet Estimate DecreasedL, Platelet Morphology Normal, Red Blood Cell Morphology Normal, Sodium Level 135L, Potassium Level 4.6, Chloride Level 103, Carbon Dioxide Level 23, Anion Gap 9, Blood Urea Nitrogen 34H, Creatinine 1.7H, Estimat Glomerular Filtration Rate 38.5, Glucose Level 115H, Calcium Level 8.5, Phosphorus Level 2.5, Total Bilirubin 0.6, Aspartate Amino Transf (AST/SGOT) 186H, Alanine Aminotransferase (ALT/SGPT) 63, Alkaline Phosphatase 37L, Total Protein 6.3L, Albumin 2.5L, Globulin 3.8, Albumin/Globulin Ratio 0.7L Height (Feet): 5 Height (Inches): 8.00 Weight (Pounds): 190 General Appearance: lethargic EENT: normal ENT inspection Neck: normal alignment Cardiovascular: normal peripheral pulses, normal rate, regular rhythm Respiratory/Chest: chest wall non-tender, lungs clear, normal breath sounds Abdomen: normal bowel sounds, non tender, soft Extremities: normal inspection Edema: no edema noted Arm (L), no edema noted Arm (R), no edema noted Leg (L), no edema noted Leg (R), no edema noted Pedal (L), no edema noted Pedal (R), no edema noted Generalized Neurologic: motor weakness Skin: normal pigmentation, warm/dry Assessment/Plan Problem List: (1) HTN (hypertension) ICD Codes: I10 - Essential (primary) hypertension SNOMED: 88856314 (2) Diabetes ICD Codes: E11.9 - Type 2 diabetes mellitus without complications SNOMED: 03880639 (3) Weak ICD Codes: R53.1 - Weakness SNOMED: 55993003 (4) Fever ICD Codes: R50.9 - Fever, unspecified SNOMED: 064319871 (5) COVID-19 ICD Codes: U07.1 - COVID-19 SNOMED: 560919540 (6) Renal failure ICD Codes: N19 - Unspecified kidney failure SNOMED: 92426610 (7) Pneumonia ICD Codes: J18.9 - Pneumonia, unspecified organism SNOMED: 515529147 (8) Dehydration ICD Codes: E86.0 - Dehydration SNOMED: 20255829 (9) CVA (cerebral infarction) ICD Codes: I63.9 - CVA (cerebral infarction) SNOMED: 279483789 Status: unchanged Assessment/Plan: o2 pulm tx abx bp bs control cbc bmp am Ziggy Carlson DO Nov 22, 2020 10:21
--- NOTE | 2020-11-22 11:46 | Pulmonology Progress Note ---
Subjective ROS Limited/Unobtainable: Yes Interval Events: none major reported per nursing Constitutional: Denies: fever HEENT: Repors: no symptoms Respiratory: Reports: shortness of breath Cardiovascular: Reports: no symptoms Gastrointestinal/Abdominal: Reports: no symptoms Allergies: Coded Allergies: No Known Allergies (Unverified , 10/20/12) All Systems: reviewed and negative except above Objective Last 24 Hour Vital Signs Date Time Temp Pulse Resp B/P (MAP) Pulse Ox O2 Delivery O2 Flow Rate FiO2 11/22/20 09:00 Nasal Cannula 5.0 11/22/20 08:50 124/55 11/22/20 08:00 98.1 65 24 124/55 (78) 92 11/22/20 04:33 97.5 80 21 115/57 (76) 90 11/22/20 00:12 97.9 55 16 106/54 (71) 94 11/21/20 20:00 97.7 54 16 99/57 (71) 95 11/21/20 20:00 Nasal Cannula 2.0 11/21/20 16:00 99.3 58 24 104/56 (72) 96 11/21/20 12:00 97.3 63 24 110/56 (74) 95 Intake and Output 11/21/20 11/22/20 19:00 07:00 Intake Total 960 ml 1000 ml Balance 960 ml 1000 ml Intake Oral 360 ml IV Total 600 ml 600 ml Other 400 ml # Voids 2 # Bowel Movements 1 General Appearance: no acute distress HEENT: atraumatic Respiratory: lungs clear Cardiovascular: normal rate Abdomen: soft, non tender Microbiology Date/Time Source Procedure Growth Status 11/19/20 20:23 Nasopharynx SARS-CoV-2 RdRp Gene Assay - Final Complete 11/19/20 20:00 Blood Blood Culture - Preliminary NO GROWTH AFTER 48 HOURS Resulted 11/19/20 19:45 Blood Blood Culture - Preliminary NO GROWTH AFTER 48 HOURS Resulted Laboratory Tests 11/21/20 12:11: POC Whole Blood Glucose 115H 11/21/20 16:44: POC Whole Blood Glucose 137H 11/21/20 20:41: POC Whole Blood Glucose [Pending] 11/22/20 05:17: POC Whole Blood Glucose [Pending] 11/22/20 06:22: White Blood Count 6.4, Red Blood Count 4.05L, Hemoglobin 12.7L, Hematocrit 37.3L , Mean Corpuscular Volume 92, Mean Corpuscular Hemoglobin 31.4H, Mean Corpuscular Hemoglobin Concent 34.1, Red Cell Distribution Width 11.9, Platelet Count 126L, Mean Platelet Volume 8.9, Neutrophils (%) (Auto) , Lymphocytes (%) (Auto) , Monocytes (%) (Auto) , Eosinophils (%) (Auto) , Basophils (%) (Auto) , Differential Total Cells Counted 100, Neutrophils % (Manual) 90H, Lymphocytes % (Manual) 6L, Monocytes % (Manual) 4, Eosinophils % (Manual) 0, Basophils % (Man ual) 0, Band Neutrophils 0, Platelet Estimate DecreasedL, Platelet Morphology Normal, Red Blood Cell Morphology Normal, Sodium Level 135L, Potassium Level 4.6, Chloride Level 103, Carbon Dioxide Level 23, Anion Gap 9, Blood Urea Nitrogen 34H, Creatinine 1.7H, Estimat Glomerular Filtration Rate 38.5, Glucose Level 115H, Calcium Level 8.5, Phosphorus Level 2.5, Total Bilirubin 0.6, Aspartate Amino Transf (AST/SGOT) 186H, Alanine Aminotransferase (ALT/SGPT) 63, Alkaline Phosphatase 37L, Total Protein 6.3L, Albumin 2.5L, Globulin 3.8, Albumin/Globulin Ratio 0.7L 11/22/20 11:31: POC Whole Blood Glucose 134H Current Medications Medications (Trade) Dose Ordered Sig/Wilson Route PRN Reason Start Time Stop Time Status Last Admin Dose Admin Acetaminophen (Tylenol) 650 mg Q6H PRN ORAL Temp >100.5 11/20/20 04:30 12/20/20 04:29 11/20/20 16:18 Aspirin (ASA) 81 mg DAILY ORAL 11/21/20 09:00 01/05/21 08:59 11/22/20 08:50 Atorvastatin Calcium (Lipitor) 20 mg BEDTIME ORAL 11/20/20 21:00 02/18/21 20:59 11/21/20 20:18 Clonazepam (KlonoPIN) 0.5 mg HSPRN PRN ORAL For Anxiety 11/20/20 17:30 11/27/20 17:29 Dexamethasone Sodium Phosphate (Decadron 10mg/ ml Inj) 6 mg DAILY IV 11/21/20 11:15 11/30/20 09:01 11/22/20 08:49 Dextrose (Dextrose 50%) 25 ml Q30M PRN IV Hypoglycemia 11/20/20 04:30 02/18/21 04:29 Dextrose (Dextrose 50%) 50 ml Q30M PRN IV Hypoglycemia 11/20/20 04:30 02/18/21 04:29 Docusate Sodium (Colace) 100 mg THREE TIMES A DAY ORAL 11/20/20 13:00 12/20/20 12:59 11/22/20 08:49 Heparin Sodium (Porcine) (Heparin 5000 units/ml) 5,000 units EVERY 12 HOURS SUBQ 11/20/20 09:00 01/04/21 08:59 11/22/20 08:52 Insulin Aspart (NovoLOG) BEFORE MEALS AND HS SUBQ 11/20/20 06:30 02/18/21 06:29 11/21/20 20:45 Irbesartan (Avapro) 300 mg DAILY ORAL 11/21/20 09:00 02/19/21 08:59 11/22/20 08:50 Meclizine HCl (Antivert) 25 mg EVERY 8 HOURS ORAL 11/21/20 22:00 12/21/20 21:59 11/22/20 05:10 Meclizine HCl (Antivert) 25 mg Q8H PRN ORAL for dizziness 11/20/20 17:30 12/20/20 17:29 Midodrine (Pro-Amatine) 5 mg THREE TIMES A DAY ORAL 11/20/20 20:00 02/18/21 19:59 11/22/20 08:50 Morphine Sulfate (Morphine Sulfate) 2 mg Q4H PRN IVP For Pain 11/20/20 04:30 11/27/20 04:29 Nebivolol (Bystolic) 2.5 mg DAILY ORAL 11/21/20 09:00 12/21/20 08:59 11/22/20 08:51 Pantoprazole (Protonix) 40 mg EVERY 12 HOURS ORAL 11/20/20 21:00 12/20/20 20:59 11/22/20 08:51 Patient Own Medication (Patient's Own Med) 1 ea DAILY ORAL 11/22/20 09:00 12/22/20 08:59 11/22/20 08:53 Patient Own Medication (Patient's Own Med) 1 ea DAILY ORAL 11/22/20 09:00 12/22/20 08:59 11/22/20 08:53 Ropinirole HCl (Requip) 1 mg DAILY ORAL 11/21/20 09:00 12/21/20 08:59 11/22/20 08:51 Sodium Chloride 1,000 ml @ 50 mls/hr Q20H IV 11/20/20 12:30 12/20/20 12:29 11/21/20 20:18 Tamsulosin HCl (Flomax) 0.4 mg TWICE A DAY ORAL 11/20/20 18:00 12/20/20 17:59 11/22/20 08:51 Vitamin D (Vitamin D) 5,000 unit DAILY ORAL 11/21/20 09:00 12/21/20 08:59 11/22/20 08:50 Assessment/Plan Assessment/Plan Assessment/Plan 1. COVID-19 pneumonia with history of fever (temp 98.4) -now on 5L NC saturating at 92% -Given x-ray findings and history of fever, we will continue broad-spectrum antibiotics for pneumonia coverage - He may be a candidate for steroids if hypoxia worsens 2. Weakness - Recommend PT evaluation -Monitor 3. SOUMYA -IV fluids -Monitor renal parameters 4. Diabetes mellitus with hyperglycemia -On insulin 5. Elevated inflammatory markers -On heparin, given elevated BUN, Cr 6. Obstructive sleep apnea -Patient reports using CPAP at night -We will continue CPAP at night with the setting of 12 10. H/O fever - Vqkc=452.7 - no leukocytosis - monitor - Temp 98.2 today 11. DVT ppx - Venous duplex scheduled today The care for this patient was discussed with my supervising physician. Delmy Mata NURSING HOME ADMISSIONS DIRECTOR Nov 22, 2020 11:46
[2020-11-22 12:00] VITALS: BP 111/59
--- NOTE | 2020-11-22 12:06 | NUR ---
CHARGE NURSE NOTE: BUN 34, creat.1.7. No IV fluids. notified.
--- NOTE | 2020-11-22 15:26 | Nephrology Progress Note ---
Assessment/Plan Problem List: (1) Renal failure (ARF), acute on chronic (2) Dehydration (3) COVID-19 (4) Lactic acidosis Assessment Renal failure, acute Possible underlying chronic kidney disease Dehydration COVID-19 infection, pneumonia Lactic acidosis 3+ proteinuria, hematuria with too many RBCs in the urine Plan November 22: Labs reviewed. Serum creatinine 1.7. Serum sodium 135. Bolus of 500 cc normal saline given. Continue per consultants. November 21: Labs reviewed. Serum creatinine 1.8. Low phosphorus addressed. Patient full code. Continue per consultants. Previously: Slow hydration Monitor renal parameters Monitor electrolytes Keep the blood pressure blood sugar in check Antibiotics per ID Avoid nephrotoxic's Per orders Subjective ROS Limited/Unobtainable: No Constitutional: Reports: malaise Objective Objective Last 24 Hour Vital Signs Date Time Temp Pulse Resp B/P (MAP) Pulse Ox O2 Delivery O2 Flow Rate FiO2 11/22/20 12:00 100.2 64 24 111/59 (76) 92 11/22/20 09:00 Nasal Cannula 5.0 11/22/20 08:50 124/55 11/22/20 08:00 98.1 65 24 124/55 (78) 92 11/22/20 04:33 97.5 80 21 115/57 (76) 90 11/22/20 00:12 97.9 55 16 106/54 (71) 94 11/21/20 20:00 97.7 54 16 99/57 (71) 95 11/21/20 20:00 Nasal Cannula 2.0 11/21/20 16:00 99.3 58 24 104/56 (72) 96 Intake and Output 11/21/20 11/22/20 19:00 07:00 Intake Total 960 ml 1000 ml Balance 960 ml 1000 ml Intake Oral 360 ml IV Total 600 ml 600 ml Other 400 ml # Voids 2 # Bowel Movements 1 Current Medications Medications (Trade) Dose Ordered Sig/Wilson Route PRN Reason Start Time Stop Time Status Last Admin Dose Admin Acetaminophen (Tylenol) 650 mg Q6H PRN ORAL Temp >100.5 11/20/20 04:30 12/20/20 04:29 11/20/20 16:18 Aspirin (ASA) 81 mg DAILY ORAL 11/21/20 09:00 01/05/21 08:59 11/22/20 08:50 Atorvastatin Calcium (Lipitor) 20 mg BEDTIME ORAL 11/20/20 21:00 02/18/21 20:59 11/21/20 20:18 Clonazepam (KlonoPIN) 0.5 mg HSPRN PRN ORAL For Anxiety 11/20/20 17:30 11/27/20 17:29 Dexamethasone Sodium Phosphate (Decadron 10mg/ ml Inj) 6 mg DAILY IV 11/21/20 11:15 11/30/20 09:01 11/22/20 08:49 Dextrose (Dextrose 50%) 25 ml Q30M PRN IV Hypoglycemia 11/20/20 04:30 02/18/21 04:29 Dextrose (Dextrose 50%) 50 ml Q30M PRN IV Hypoglycemia 11/20/20 04:30 02/18/21 04:29 Docusate Sodium (Colace) 100 mg THREE TIMES A DAY ORAL 11/20/20 13:00 12/20/20 12:59 11/22/20 12:08 Heparin Sodium (Porcine) (Heparin 5000 units/ml) 5,000 units EVERY 12 HOURS SUBQ 11/20/20 09:00 01/04/21 08:59 11/22/20 08:52 Insulin Aspart (NovoLOG) BEFORE MEALS AND HS SUBQ 11/20/20 06:30 02/18/21 06:29 11/21/20 20:45 Irbesartan (Avapro) 300 mg DAILY ORAL 11/21/20 09:00 02/19/21 08:59 11/22/20 08:50 Meclizine HCl (Antivert) 25 mg EVERY 8 HOURS ORAL 11/21/20 22:00 12/21/20 21:59 11/22/20 13:50 Meclizine HCl (Antivert) 25 mg Q8H PRN ORAL for dizziness 11/20/20 17:30 12/20/20 17:29 Midodrine (Pro-Amatine) 5 mg THREE TIMES A DAY ORAL 11/20/20 20:00 02/18/21 19:59 11/22/20 12:08 Morphine Sulfate (Morphine Sulfate) 2 mg Q4H PRN IVP For Pain 11/20/20 04:30 11/27/20 04:29 Nebivolol (Bystolic) 2.5 mg DAILY ORAL 11/21/20 09:00 12/21/20 08:59 11/22/20 08:51 Pantoprazole (Protonix) 40 mg EVERY 12 HOURS ORAL 11/20/20 21:00 12/20/20 20:59 11/22/20 08:51 Patient Own Medication (Patient's Own Med) 1 ea DAILY ORAL 11/22/20 09:00 12/22/20 08:59 11/22/20 08:53 Patient Own Medication (Patient's Own Med) 1 ea DAILY ORAL 11/22/20 09:00 12/22/20 08:59 11/22/20 08:53 Ropinirole HCl (Requip) 1 mg DAILY ORAL 11/21/20 09:00 12/21/20 08:59 11/22/20 08:51 Sodium Chloride 1,000 ml @ 50 mls/hr Q20H IV 11/20/20 12:30 12/20/20 12:29 11/21/20 20:18 Tamsulosin HCl (Flomax) 0.4 mg TWICE A DAY ORAL 11/20/20 18:00 12/20/20 17:59 11/22/20 08:51 Vitamin D (Vitamin D) 5,000 unit DAILY ORAL 11/21/20 09:00 12/21/20 08:59 11/22/20 08:50 Laboratory Tests 11/21/20 16:44: POC Whole Blood Glucose 137H 11/21/20 20:41: POC Whole Blood Glucose [Pending] 11/22/20 05:17: POC Whole Blood Glucose [Pending] 11/22/20 06:22: White Blood Count 6.4, Red Blood Count 4.05L, Hemoglobin 12.7L, Hematocrit 37.3L , Mean Corpuscular Volume 92, Mean Corpuscular Hemoglobin 31.4H, Mean Corpuscula r Hemoglobin Concent 34.1, Red Cell Distribution Width 11.9, Platelet Count 126L , Mean Platelet Volume 8.9, Neutrophils (%) (Auto) , Lymphocytes (%) (Auto) , Monocytes (%) (Auto) , Eosinophils (%) (Auto) , Basophils (%) (Auto) , Differ ential Total Cells Counted 100, Neutrophils % (Manual) 90H, Lymphocytes % (Manual) 6L, Monocytes % (Manual) 4, Eosinophils % (Manual) 0, Basophils % (Manual) 0, Band Neutrophils 0, Platelet Estimate DecreasedL, Platelet Morphology Normal, Red Blood Cell Morphology Normal, Sodium Level 135L, Potass[place] m Level 4.6, Chloride Level 103, Carbon Dioxide Level 23, Anion Gap 9, Blood Urea Nitrogen 34H, Creatinine 1.7H, Estimat Glomerular Filtration Rate 38.5, Glucose Level 115H, Calcium Level 8.5, Phosphorus Level 2.5, Total Bilirubin 0.6, Aspartate Amino Transf (AST/SGOT) 186H, Alanine Aminotransferase (ALT/SGPT) 63, Alkaline Phosphatase 37L, Total Protein 6.3L, Albumin 2.5L, Globulin 3.8, Albumin/Globulin Ratio 0.7L 11/22/20 11:31: POC Whole Blood Glucose 134H Height (Feet): 5 Height (Inches): 8.00 Weight (Pounds): 190 Cardiovascular: normal rate Respiratory/Chest: decreased breath sounds Abdomen: soft Ac Castro MD Nov 22, 2020 15:26
[2020-11-22 16:00] VITALS: BP 106/55
--- NOTE | 2020-11-22 19:10 | NUR ---
NURSE HAND-OFF: Important Events on Shift:Oxygen Tx 5L via NC. IV hydration. IV bolus 500cc xonce Patient Status: stable. Diet: CCHO +Low sodium Pending Orders: n/a Pending Results/Labs:n/a Pending MD notification:n/a Latest Vital Signs: Temperature 98.1 , Pulse 60 , B/P 106 /55 , Respiratory Rate 24 , O2 SAT 92 , Room Air, O2 Flow Rate 5.0 . Vital Sign Comment: stable Latest Delarosa Fall Score: 45 Fall Risk: High Risk Safety Measures: Call light Within Reach, Bed Alarm Zone 1, Side Rails Side Rails x2, Bed position Low and Locked. Fall Precautions: Door Sign Patient Fall Education Report given to CAMRON Noel.
[2020-11-22 20:00] VITALS: BP 104/55
--- NOTE | 2020-11-22 20:30 | NUR ---
NURSE NOTES: Pt is in bed, awake and alert. No acute distress noted. Vitals stable. Pt is on N/C 5L; O2 sat (92-95%). Pt still coughs. Fall precaution in place, bed locked low in position,side rails up and call light within reach. Pt is asked to call before getting out of bed. Pt will be monitored.
[2020-11-22] MEDS: Atorvastatin 20mg tab ORAL SCH (21:59)
[2020-11-23] VITALS: BP 112/59
[2020-11-23 04:00] VITALS: BP 117/64
[2020-11-23] MEDS: Meclizine 25mg tab ORAL SCH ×3 (04:40→22:06)
--- NOTE | 2020-11-23 06:00 | NUR ---
NURSE NOTES: Pt had fever of 101.5, after Tylenol 650mg pt's temp was 98.8. On 5L n/C. O2 sat 92-94%.
[2020-11-23] MEDS: NovoLOG Insulin Flexpen SUBQ SCH ×4 (06:30→20:50)
--- NOTE | 2020-11-23 07:15 | NUR ---
NURSE HAND-OFF: Important Events on Shift:[Temp of 101.5 relived with Tylenol ] Patient Status: [Stable] Diet: [] Pending Orders: [] Pending Results/Labs:[] Pending MD notification:[] Latest Vital Signs: Temperature 98.8 , Pulse 77 , B/P 117 /64 , Respiratory Rate 19 , O2 SAT 92 , Room Air, O2 Flow Rate 5.0 . Vital Sign Comment: [] Latest Delarosa Fall Score: 45 Fall Risk: High Risk Safety Measures: Call light Within Reach, Bed Alarm Zone 1, Side Rails Side Rails x2, Bed position Low and Locked. Fall Precautions: Door Sign Patient Fall Education Report given to [Noe Plascencia, Informed to monitor temp, also informed that patient is fall risk. ].
[2020-11-23 08:00] VITALS: BP 98/57
[2020-11-23 08:18] LABS: HEMATOCRIT 33.9 % (42.0-52.0); HEMOGLOBIN 11.8 G/DL (14.2-18.0); MEAN CORPUSCULAR VOLUME 91 FL (80-99); PLATELET COUNT 125 K/UL (150-450); RED BLOOD COUNT 3.71 M/UL (4.70-6.10); RED CELL DISTRIBUTION WIDTH 12.3 % (11.6-14.8); WHITE BLOOD COUNT 6.7 K/UL (4.8-10.8)
--- NOTE | 2020-11-23 08:19 | NUR ---
NURSE NOTES: received report from CAMRON Noel. patient in bed. a&ox4, verbally responsive. no respiratory distress on 5L via NC 93%, no pain at this time. no fever at this time. 98.4, IV on LFA running NS@50/hr. no skin issues. bed in the lowest position and locked. call light within reach. alarm on.
[2020-11-23] MEDS: Docusate 100mg cap ORAL SCH ×3 (08:46→17:11)
[2020-11-23] MEDS: Tamsulosin 0.4mg cap ORAL SCH ×2 (08:46→17:11)
[2020-11-23] MEDS: Aspirin Baby 81mg ORAL SCH (08:46)
[2020-11-23] MEDS: dexAMETHasone 10mg/ml Inj IV SCH (08:47)
[2020-11-23] MEDS: Vitamin D 1000 units Tab ORAL SCH (08:47)
[2020-11-23] MEDS: Heparin 5000 units/ml inj SUBQ SCH ×2 (08:48→20:27)
[2020-11-23] MEDS: Irbesartan 150mg tablet ORAL SCH (08:48)
[2020-11-23] MEDS: Bystolic 2.5mg Tab ORAL SCH (08:48)
[2020-11-23] MEDS: TRADJENTA 5 MG ORAL SCH (08:49)
[2020-11-23 08:54] LABS: CALCIUM 8.3 MG/DL (8.5-10.1); CREATININE 1.8 MG/DL (0.55-1.30)
--- NOTE | 2020-11-23 08:56 | General Progress Note ---
Subjective Constitutional: Reports: weakness Allergies: Coded Allergies: No Known Allergies (Unverified , 10/20/12) All Systems: reviewed and negative except above Subjective o2nc calm in bed Objective Last 24 Hour Vital Signs Date Time Temp Pulse Resp B/P (MAP) Pulse Ox O2 Delivery O2 Flow Rate FiO2 11/23/20 08:48 98/57 11/23/20 08:00 97.9 60 19 98/57 (71) 93 11/23/20 07:49 92 Nasal Cannula 5.0 40 11/23/20 05:13 98.8 11/23/20 04:00 101.5 77 19 117/64 (81) 92 11/23/20 00:00 97.3 72 17 112/59 (76) 92 11/22/20 23:12 94 Nasal Cannula 5.0 40 11/22/20 21:00 Nasal Cannula 5.0 11/22/20 20:00 97.9 60 18 104/55 (71) 95 11/22/20 16:00 98.1 60 24 106/55 (72) 92 11/22/20 12:00 100.2 64 24 111/59 (76) 92 11/22/20 09:00 Nasal Cannula 5.0 Intake and Output 11/22/20 11/23/20 19:00 07:00 Intake Total 950 ml 710 ml Balance 950 ml 710 ml Intake Oral 500 ml IV Total 450 ml 350 ml Other 360 ml # Voids 3 2 # Bowel Movements 1 Laboratory Tests 11/22/20 11:31: POC Whole Blood Glucose 134H 11/22/20 20:55: POC Whole Blood Glucose 170H 11/23/20 06:00: White Blood Count 6.7, Red Blood Count 3.71L, Hemoglobin 11.8L, Hematocrit 33.9L , Mean Corpuscular Volume 91, Mean Corpuscular Hemoglobin 31.8H, Mean Corpuscular Hemoglobin Concent 34.8, Red Cell Distribution Width 12.3, Platelet Count 125L, Mean Platelet Volume 9.4, Neutrophils (%) (Auto) , Lymphocytes (%) (Auto) , Monocytes (%) (Auto) , Eosinophils (%) (Auto) , Basophils (%) (Auto) , Neutrophils % (Manual) [Pending], Lymphocytes % (Manual) [Pending], Platelet Estimate [Pending], Platelet Morphology [Pending], Sodium Level [Pending], Potassium Level [Pending], Chloride Level [Pending], Carbon Dioxide Level [Pending], Blood Urea Nitrogen [Pending], Creatinine [Pending], Estimat Glomerular Filtration Rate [Pending], Glucose Level [Pending], Calcium Level [Pending] 11/23/20 06:10: POC Whole Blood Glucose 130H Height (Feet): 5 Height (Inches): 8.00 Weight (Pounds): 190 General Appearance: lethargic EENT: normal ENT inspection Neck: normal alignment Cardiovascular: normal peripheral pulses, normal rate, regular rhythm Respiratory/Chest: chest wall non-tender, lungs clear, normal breath sounds Abdomen: normal bowel sounds, non tender, soft Extremities: normal inspection Edema: no edema noted Arm (L), no edema noted Arm (R), no edema noted Leg (L), no edema noted Leg (R), no edema noted Pedal (L), no edema noted Pedal (R), no edema noted Generalized Neurologic: motor weakness Skin: normal pigmentation, warm/dry Assessment/Plan Problem List: (1) HTN (hypertension) ICD Codes: I10 - Essential (primary) hypertension SNOMED: 68115307 (2) Diabetes ICD Codes: E11.9 - Type 2 diabetes mellitus without complications SNOMED: 51984600 (3) Weak ICD Codes: R53.1 - Weakness SNOMED: 37578211 (4) Fever ICD Codes: R50.9 - Fever, unspecified SNOMED: 012093351 (5) COVID-19 ICD Codes: U07.1 - COVID-19 SNOMED: 754729556 (6) Renal failure ICD Codes: N19 - Unspecified kidney failure SNOMED: 77830172 (7) Pneumonia ICD Codes: J18.9 - Pneumonia, unspecified organism SNOMED: 304634874 (8) Dehydration ICD Codes: E86.0 - Dehydration SNOMED: 88474714 (9) CVA (cerebral infarction) ICD Codes: I63.9 - CVA (cerebral infarction) SNOMED: 427153956 Status: unchanged Assessment/Plan: o2 pulm tx abx bp bs control cbc bmp am Ziggy Carlson DO Nov 23, 2020 08:56
--- NOTE | 2020-11-23 11:42 | Nephrology Progress Note ---
Assessment/Plan Problem List: (1) Renal failure (ARF), acute on chronic (2) Dehydration (3) COVID-19 (4) Lactic acidosis Assessment Renal failure, acute Possible underlying chronic kidney disease Dehydration COVID-19 infection, pneumonia Lactic acidosis 3+ proteinuria, hematuria with too many RBCs in the urine Plan November 23: Labs reviewed. Serum creatinine 1.8. Electrolytes stable. Continue as is. November 22: Labs reviewed. Serum creatinine 1.7. Serum sodium 135. Bolus of 500 cc normal saline given. Continue per consultants. November 21: Labs reviewed. Serum creatinine 1.8. Low phosphorus addressed. Patient full code. Continue per consultants. Previously: Slow hydration Monitor renal parameters Monitor electrolytes Keep the blood pressure blood sugar in check Antibiotics per ID Avoid nephrotoxic's Per orders Subjective ROS Limited/Unobtainable: No Constitutional: Reports: malaise, weakness Objective Objective Last 24 Hour Vital Signs Date Time Temp Pulse Resp B/P (MAP) Pulse Ox O2 Delivery O2 Flow Rate FiO2 11/23/20 09:00 Nasal Cannula 5.0 11/23/20 08:48 98/57 11/23/20 08:00 97.9 60 19 98/57 (71) 93 11/23/20 07:49 92 Nasal Cannula 5.0 40 11/23/20 05:13 98.8 11/23/20 04:00 101.5 77 19 117/64 (81) 92 11/23/20 00:00 97.3 72 17 112/59 (76) 92 11/22/20 23:12 94 Nasal Cannula 5.0 40 11/22/20 21:00 Nasal Cannula 5.0 11/22/20 20:00 97.9 60 18 104/55 (71) 95 11/22/20 16:00 98.1 60 24 106/55 (72) 92 11/22/20 12:00 100.2 64 24 111/59 (76) 92 Intake and Output 11/22/20 11/23/20 19:00 07:00 Intake Total 950 ml 710 ml Balance 950 ml 710 ml Intake Oral 500 ml IV Total 450 ml 350 ml Other 360 ml # Voids 3 2 # Bowel Movements 1 Current Medications Medications (Trade) Dose Ordered Sig/Wilson Route PRN Reason Start Time Stop Time Status Last Admin Dose Admin Acetaminophen (Tylenol) 650 mg Q6H PRN ORAL Temp >100.5 11/20/20 04:30 12/20/20 04:29 11/23/20 04:43 Aspirin (ASA) 81 mg DAILY ORAL 11/21/20 09:00 01/05/21 08:59 11/23/20 08:46 Atorvastatin Calcium (Lipitor) 20 mg BEDTIME ORAL 11/20/20 21:00 02/18/21 20:59 11/22/20 21:59 Clonazepam (KlonoPIN) 0.5 mg HSPRN PRN ORAL For Anxiety 11/20/20 17:30 11/27/20 17:29 Dexamethasone Sodium Phosphate (Decadron 10mg/ ml Inj) 6 mg DAILY IV 11/21/20 11:15 11/30/20 09:01 11/23/20 08:47 Dextrose (Dextrose 50%) 25 ml Q30M PRN IV Hypoglycemia 11/20/20 04:30 02/18/21 04:29 Dextrose (Dextrose 50%) 50 ml Q30M PRN IV Hypoglycemia 11/20/20 04:30 02/18/21 04:29 Docusate Sodium (Colace) 100 mg THREE TIMES A DAY ORAL 11/20/20 13:00 12/20/20 12:59 11/23/20 08:46 Heparin Sodium (Porcine) (Heparin 5000 units/ml) 5,000 units EVERY 12 HOURS SUBQ 11/20/20 09:00 01/04/21 08:59 11/23/20 08:48 Insulin Aspart (NovoLOG) BEFORE MEALS AND HS SUBQ 11/20/20 06:30 02/18/21 06:29 11/22/20 21:00 Irbesartan (Avapro) 300 mg DAILY ORAL 11/21/20 09:00 02/19/21 08:59 11/22/20 08:50 Meclizine HCl (Antivert) 25 mg EVERY 8 HOURS ORAL 11/21/20 22:00 12/21/20 21:59 11/23/20 04:40 Meclizine HCl (Antivert) 25 mg Q8H PRN ORAL for dizziness 11/20/20 17:30 12/20/20 17:29 Midodrine (Pro-Amatine) 5 mg THREE TIMES A DAY ORAL 11/20/20 20:00 02/18/21 19:59 11/23/20 08:47 Morphine Sulfate (Morphine Sulfate) 2 mg Q4H PRN IVP For Pain 11/20/20 04:30 11/27/20 04:29 Nebivolol (Bystolic) 2.5 mg DAILY ORAL 11/21/20 09:00 12/21/20 08:59 11/22/20 08:51 Pantoprazole (Protonix) 40 mg EVERY 12 HOURS ORAL 11/20/20 21:00 12/20/20 20:59 11/23/20 08:46 Patient Own Medication (Patient's Own Med) 1 ea DAILY ORAL 11/22/20 09:00 12/22/20 08:59 11/23/20 08:49 Patient Own Medication (Patient's Own Med) 1 ea DAILY ORAL 11/22/20 09:00 12/22/20 08:59 11/23/20 08:49 Ropinirole HCl (Requip) 1 mg DAILY ORAL 11/21/20 09:00 12/21/20 08:59 11/23/20 08:47 Sodium Chloride 1,000 ml @ 50 mls/hr Q20H IV 11/20/20 12:30 12/20/20 12:29 11/23/20 00:38 Tamsulosin HCl (Flomax) 0.4 mg TWICE A DAY ORAL 11/20/20 18:00 12/20/20 17:59 11/23/20 08:46 Vitamin D (Vitamin D) 5,000 unit DAILY ORAL 11/21/20 09:00 12/21/20 08:59 11/23/20 08:47 Laboratory Tests 11/22/20 16:40: POC Whole Blood Glucose 161H 11/22/20 20:55: POC Whole Blood Glucose 170H 11/23/20 06:00: White Blood Count 6.7, Red Blood Count 3.71L, Hemoglobin 11.8L, Hematocrit 33.9L , Mean Corpuscular Volume 91, Mean Corpuscular Hemoglobin 31.8H, Mean Corpuscular Hemoglobin Concent 34.8, Red Cell Distribution Width 12.3, Platelet Count 125L, Mean Platelet Volume 9.4, Neutrophils (%) (Auto) , Lymphocytes (%) (Auto) , Monocytes (%) (Auto) , Eosinophils (%) (Auto) , Basophils (%) (Auto) , Differential Total Cells Counted 100, Neutrophils % (Manual) 92H, Lymphocytes % (Manual) 4L, Monocytes % (Manual) 4, Eosinophils % (Manual) 0, Basophils % (Manual) 0, Band Neutrophils 0, Platelet Estimate DecreasedL, Platelet Morphology Normal, Hypochromasia 1+, Sodium Level 136, Potassium Level 4.0, Chloride Level 105, Carbon Dioxide Level 20L, Anion Gap 11, Blood Urea Nitrogen 35H, Creatinine 1.8H, Estimat Glomerular Filtration Rate 36.0, Glucose Level 122H, Calcium Level 8.3L 11/23/20 06:10: POC Whole Blood Glucose 130H 11/23/20 11:28: POC Whole Blood Glucose 182H Height (Feet): 5 Height (Inches): 8.00 Weight (Pounds): 190 General Appearance: no apparent distress Cardiovascular: normal rate Respiratory/Chest: decreased breath sounds Abdomen: soft Ac Castro MD Nov 23, 2020 11:42
[2020-11-23 12:00] VITALS: BP 107/58
--- NOTE | 2020-11-23 12:45 | Pulmonology Progress Note ---
Subjective ROS Limited/Unobtainable: No Interval Events: none major reported per nursing Constitutional: Denies: fever HEENT: Repors: no symptoms Respiratory: Reports: shortness of breath Cardiovascular: Reports: no symptoms Gastrointestinal/Abdominal: Reports: no symptoms Allergies: Coded Allergies: No Known Allergies (Unverified , 10/20/12) All Systems: reviewed and negative except above Objective Last 24 Hour Vital Signs Date Time Temp Pulse Resp B/P (MAP) Pulse Ox O2 Delivery O2 Flow Rate FiO2 11/23/20 12:00 97.5 63 19 107/58 (74) 92 11/23/20 09:00 Nasal Cannula 5.0 11/23/20 08:48 98/57 11/23/20 08:00 97.9 60 19 98/57 (71) 93 11/23/20 07:49 92 Nasal Cannula 5.0 40 11/23/20 05:13 98.8 11/23/20 04:00 101.5 77 19 117/64 (81) 92 11/23/20 00:00 97.3 72 17 112/59 (76) 92 11/22/20 23:12 94 Nasal Cannula 5.0 40 11/22/20 21:00 Nasal Cannula 5.0 11/22/20 20:00 97.9 60 18 104/55 (71) 95 11/22/20 16:00 98.1 60 24 106/55 (72) 92 Intake and Output 11/22/20 11/23/20 19:00 07:00 Intake Total 950 ml 710 ml Balance 950 ml 710 ml Intake Oral 500 ml IV Total 450 ml 350 ml Other 360 ml # Voids 3 2 # Bowel Movements 1 General Appearance: no acute distress HEENT: atraumatic Respiratory: lungs clear Cardiovascular: normal rate Abdomen: soft, non tender Laboratory Tests 11/22/20 16:40: POC Whole Blood Glucose 161H 11/22/20 20:55: POC Whole Blood Glucose 170H 11/23/20 06:00: White Blood Count 6.7, Red Blood Count 3.71L, Hemoglobin 11.8L, Hematocrit 33.9L , Mean Corpuscular Volume 91, Mean Corpuscular Hemoglobin 31.8H, Mean Corpuscular Hemoglobin Concent 34.8, Red Cell Distribution Width 12.3, Platelet Count 125L, Mean Platelet Volume 9.4, Neutrophils (%) (Auto) , Lymphocytes (%) (Auto) , Monocytes (%) (Auto) , Eosinophils (%) (Auto) , Basophils (%) (Auto) , Differential Total Cells Counted 100, Neutrophils % (Manual) 92H, Lymphocytes % (Manual) 4L, Monocytes % (Manual) 4, Eosinophils % (Manual) 0, Basophils % (Manual) 0, Band Neutrophils 0, Platelet Estimate DecreasedL, Platelet Morphol ogy Normal, Hypochromasia 1+, Sodium Level 136, Potassium Level 4.0, Chloride Level 105, Carbon Dioxide Level 20L, Anion Gap 11, Blood Urea Nitrogen 35H, Creatinine 1.8H, Estimat Glomerular Filtration Rate 36.0, Glucose Level 122H, Calcium Level 8.3L 11/23/20 06:10: POC Whole Blood Glucose 130H 11/23/20 11:28: POC Whole Blood Glucose 182H Current Medications Medications (Trade) Dose Ordered Sig/Wilson Route PRN Reason Start Time Stop Time Status Last Admin Dose Admin Acetaminophen (Tylenol) 650 mg Q6H PRN ORAL Temp >100.5 11/20/20 04:30 12/20/20 04:29 11/23/20 04:43 Aspirin (ASA) 81 mg DAILY ORAL 11/21/20 09:00 01/05/21 08:59 11/23/20 08:46 Atorvastatin Calcium (Lipitor) 20 mg BEDTIME ORAL 11/20/20 21:00 02/18/21 20:59 11/22/20 21:59 Clonazepam (KlonoPIN) 0.5 mg HSPRN PRN ORAL For Anxiety 11/20/20 17:30 11/27/20 17:29 Dexamethasone Sodium Phosphate (Decadron 10mg/ ml Inj) 6 mg DAILY IV 11/21/20 11:15 11/30/20 09:01 11/23/20 08:47 Dextrose (Dextrose 50%) 25 ml Q30M PRN IV Hypoglycemia 11/20/20 04:30 02/18/21 04:29 Dextrose (Dextrose 50%) 50 ml Q30M PRN IV Hypoglycemia 11/20/20 04:30 02/18/21 04:29 Docusate Sodium (Colace) 100 mg THREE TIMES A DAY ORAL 11/20/20 13:00 12/20/20 12:59 11/23/20 08:46 Heparin Sodium (Porcine) (Heparin 5000 units/ml) 5,000 units EVERY 12 HOURS SUBQ 11/20/20 09:00 01/04/21 08:59 11/23/20 08:48 Insulin Aspart (NovoLOG) BEFORE MEALS AND HS SUBQ 11/20/20 06:30 02/18/21 06:29 11/23/20 12:17 Irbesartan (Avapro) 300 mg DAILY ORAL 11/21/20 09:00 02/19/21 08:59 11/22/20 08:50 Meclizine HCl (Antivert) 25 mg EVERY 8 HOURS ORAL 11/21/20 22:00 12/21/20 21:59 11/23/20 04:40 Meclizine HCl (Antivert) 25 mg Q8H PRN ORAL for dizziness 11/20/20 17:30 12/20/20 17:29 Midodrine (Pro-Amatine) 5 mg THREE TIMES A DAY ORAL 11/20/20 20:00 02/18/21 19:59 11/23/20 12:08 Morphine Sulfate (Morphine Sulfate) 2 mg Q4H PRN IVP For Pain 11/20/20 04:30 11/27/20 04:29 Nebivolol (Bystolic) 2.5 mg DAILY ORAL 11/21/20 09:00 12/21/20 08:59 11/22/20 08:51 Pantoprazole (Protonix) 40 mg EVERY 12 HOURS ORAL 11/20/20 21:00 12/20/20 20:59 11/23/20 08:46 Patient Own Medication (Patient's Own Med) 1 ea DAILY ORAL 11/22/20 09:00 12/22/20 08:59 11/23/20 08:49 Patient Own Medication (Patient's Own Med) 1 ea DAILY ORAL 11/22/20 09:00 12/22/20 08:59 11/23/20 08:49 Ropinirole HCl (Requip) 1 mg DAILY ORAL 11/21/20 09:00 12/21/20 08:59 11/23/20 08:47 Sodium Chloride 1,000 ml @ 50 mls/hr Q20H IV 11/20/20 12:30 12/20/20 12:29 11/23/20 00:38 Tamsulosin HCl (Flomax) 0.4 mg TWICE A DAY ORAL 11/20/20 18:00 12/20/20 17:59 11/23/20 08:46 Vitamin D (Vitamin D) 5,000 unit DAILY ORAL 11/21/20 09:00 12/21/20 08:59 11/23/20 08:47 Assessment/Plan Assessment/Plan Assessment/Plan 1. COVID-19 pneumonia with history of fever (temp 98.4) -now on 5L NC saturating at 93% -ABT's are D/C - He may be a candidate for steroids if hypoxia worsens 2. Weakness - Recommend PT evaluation -Monitor 3. SOUMYA -IV fluids -Monitor renal parameters 4. Diabetes mellitus with hyperglycemia -On insulin 5. Elevated inflammatory markers -On heparin, given elevated BUN, Cr 6. Obstructive sleep apnea -Patient reports using CPAP at night -We will continue CPAP at night with the setting of 12 10. H/O fever - Omra=554.7 - no leukocytosis - monitor - Temp 98.2 today 11. DVT ppx - Venous duplex: No evidence of deep venous thrombosis involving the lower extremities. The care for this patient was discussed with my supervising physician. Delmy Mata NP Nov 23, 2020 12:44
[2020-11-23] MEDS ORDERED: Tubing IV Secondary IV ONE (14:58)
[2020-11-23 16:00] VITALS: BP 119/63
--- NOTE | 2020-11-23 17:13 | NUR ---
NURSE NOTES: held dss 100mg po d/t loos stool.
--- NOTE | 2020-11-23 19:28 | NUR ---
NURSE HAND-OFF: Important Events on Shift: Oxygen Tx, IV hydration. Patient Status: stable. episode of desaturated Diet: CCHO m, low sodium Pending Orders: n/a Pending Results/Labs:n/a Pending MD notification:n/a Latest Vital Signs: Temperature 97.3 , Pulse 61 , B/P 119 /63 , Respiratory Rate 18 , O2 SAT 93 , Room Air, O2 Flow Rate 5.0 . Vital Sign Comment: stable Latest Delarosa Fall Score: 45 Fall Risk: High Risk Safety Measures: Call light Within Reach, Bed Alarm Zone 1, Side Rails Side Rails x2, Bed position Low and Locked. Fall Precautions: Door Sign Patient Fall Education Report given to CAMRON De La Rosa.
--- NOTE | 2020-11-23 19:37 | NUR ---
NURSE NOTES: Received patient in bed, awake ,alert oriented x4, speaks primarily Finnish, able to make his needs known. Patient is on NC at 5 liters /min, can use urinal, on bedrest. Call light is within reach, bed is lowered, locked, alarm is on, will continue to monitor for comfort and safety.
[2020-11-23 20:00] VITALS: BP 121/67
[2020-11-23] MEDS: Atorvastatin 20mg tab ORAL SCH (20:26)
[2020-11-24] VITALS: BP 132/60
[2020-11-24 04:00] VITALS: BP 113/60
[2020-11-24] MEDS: Meclizine 25mg tab ORAL SCH ×3 (05:46→21:09)
[2020-11-24] MEDS: NovoLOG Insulin Flexpen SUBQ SCH ×4 (05:48→21:33)
[2020-11-24 06:43] LABS: HEMATOCRIT 35.1 % (42.0-52.0); HEMOGLOBIN 12.1 G/DL (14.2-18.0); MEAN CORPUSCULAR VOLUME 93 FL (80-99); PLATELET COUNT 144 K/UL (150-450); RED BLOOD COUNT 3.79 M/UL (4.70-6.10); RED CELL DISTRIBUTION WIDTH 12.9 % (11.6-14.8); WHITE BLOOD COUNT 8.8 K/UL (4.8-10.8)
[2020-11-24] MEDS ORDERED: guaiFENesin /DM 10ml syrup ORAL PRN (06:45)
--- NOTE | 2020-11-24 07:18 | NUR ---
NURSE HAND-OFF: Important Events on Shift: Blood sugar in am 140, temp 100.4 noted at 0000 on 11/23/20, tylenol is given Patient Status: full code Diet: CCHO med low salt Pending Orders: Pending Results/Labs: Pending MD notification: Latest Vital Signs: Temperature 97.4 , Pulse 61 , B/P 113 /60 , Respiratory Rate 18 , O2 SAT 90 , Room Air, O2 Flow Rate 5.0 . Vital Sign Comment: Latest Delarosa Fall Score: 45 Fall Risk: High Risk Safety Measures: Call light Within Reach, Bed Alarm Zone 1, Side Rails Side Rails x2, Bed position Low and Locked. Fall Precautions: Door Sign Patient Fall Education Report given to CAMRON Larios
--- NOTE | 2020-11-24 07:40 | NUR ---
NURSE NOTES: Received report from Estrella LYON, pt a/a/o x4 laying in bed with no signs of distress or other issues at this time, patient is able to verbalized needs. pt uses urinal. IV on the left FA gauge #22 running NS@50ml/hr. patient is on O2 @5L. call light within reach, bed in lowest position. side rales up x2. I will f/u as needed.
[2020-11-24 07:41] LABS: CALCIUM 8.2 MG/DL (8.5-10.1); CREATININE 1.5 MG/DL (0.55-1.30); POTASSIUM 4.1 MMOL/L (3.5-5.1)
[2020-11-24 08:00] VITALS: BP 122/67
--- NOTE | 2020-11-24 08:57 | General Progress Note ---
Subjective Constitutional: Reports: weakness Allergies: Coded Allergies: No Known Allergies (Unverified , 10/20/12) All Systems: reviewed and negative except above Subjective o2nc calm in bed Objective Last 24 Hour Vital Signs Date Time Temp Pulse Resp B/P (MAP) Pulse Ox O2 Delivery O2 Flow Rate FiO2 11/24/20 08:22 95 Nasal Cannula 5.0 40 11/24/20 08:00 97.0 63 24 122/67 (85) 88 11/24/20 04:00 97.4 61 18 113/60 (77) 90 11/24/20 00:50 99.8 11/24/20 00:00 100.4 71 20 132/60 (84) 91 11/23/20 21:31 Nasal Cannula 5.0 11/23/20 20:19 95 Nasal Cannula 5.0 40 11/23/20 20:00 97.6 67 19 121/67 (85) 95 11/23/20 16:00 97.3 61 18 119/63 (81) 93 11/23/20 12:00 97.5 63 19 107/58 (74) 92 11/23/20 09:00 Nasal Cannula 5.0 Intake and Output 11/23/20 11/24/20 19:00 07:00 Intake Total 1320 ml Balance 1320 ml Intake Oral 720 ml IV Total 600 ml # Voids 2 # Bowel Movements 1 1 Laboratory Tests 11/23/20 11:28: POC Whole Blood Glucose 182H 11/23/20 16:47: POC Whole Blood Glucose 216H 11/24/20 05:15: White Blood Count 8.8, Red Blood Count 3.79L, Hemoglobin 12.1L, Hematocrit 35.1L , Mean Corpuscular Volume 93, Mean Corpuscular Hemoglobin 31.8H, Mean Corpuscular Hemoglobin Concent 34.4, Red Cell Distribution Width 12.9, Platelet Count 144L, Mean Platelet Volume 10.0, Neutrophils (%) (Auto) , Lymphocytes (%) (Auto) , Monocytes (%) (Auto) , Eosinophils (%) (Auto) , Basophils (%) (Auto) , Neutrophils % (Manual) [Pending], Lymphocytes % (Manual) [Pending], Platelet Estimate [Pending], Platelet Morphology [Pending], Sodium Level 137, Potassium Level 4.1, Chloride Level 106, Carbon Dioxide Level 20L, Anion Gap 11, Blood Urea Nitrogen 32H, Creatinine 1.5H, Estimat Glomerular Filtration Rate 44.5, Glucose Level 139H, Calcium Level 8.2L Height (Feet): 5 Height (Inches): 8.00 Weight (Pounds): 190 General Appearance: lethargic EENT: normal ENT inspection Neck: normal alignment Cardiovascular: normal peripheral pulses, normal rate, regular rhythm Respiratory/Chest: chest wall non-tender, lungs clear, normal breath sounds Abdomen: normal bowel sounds, non tender, soft Extremities: normal inspection Edema: no edema noted Arm (L), no edema noted Arm (R), no edema noted Leg (L), no edema noted Leg (R), no edema noted Pedal (L), no edema noted Pedal (R), no edema noted Generalized Neurologic: motor weakness Skin: normal pigmentation, warm/dry Assessment/Plan Problem List: (1) HTN (hypertension) ICD Codes: I10 - Essential (primary) hypertension SNOMED: 30749562 (2) Diabetes ICD Codes: E11.9 - Type 2 diabetes mellitus without complications SNOMED: 68955294 (3) Weak ICD Codes: R53.1 - Weakness SNOMED: 26328982 (4) Fever ICD Codes: R50.9 - Fever, unspecified SNOMED: 298926179 (5) COVID-19 ICD Codes: U07.1 - COVID-19 SNOMED: 769229283 (6) Renal failure ICD Codes: N19 - Unspecified kidney failure SNOMED: 69513903 (7) Pneumonia ICD Codes: J18.9 - Pneumonia, unspecified organism SNOMED: 688536544 (8) Dehydration ICD Codes: E86.0 - Dehydration SNOMED: 09069387 (9) CVA (cerebral infarction) ICD Codes: I63.9 - CVA (cerebral infarction) SNOMED: 335091227 Status: unchanged Assessment/Plan: o2 pulm tx abx bp bs control cbc bmp am Ziggy Carlson DO Nov 24, 2020 08:57
[2020-11-24] MEDS: Tamsulosin 0.4mg cap ORAL SCH ×2 (09:31→19:14)
[2020-11-24] MEDS: TRADJENTA 5 MG ORAL SCH (09:31)
[2020-11-24] MEDS: Docusate 100mg cap ORAL SCH ×3 (09:32→19:14)
[2020-11-24] MEDS: Aspirin Baby 81mg ORAL SCH (09:32)
[2020-11-24] MEDS: Vitamin D 1000 units Tab ORAL SCH (09:32)
[2020-11-24] MEDS: dexAMETHasone 10mg/ml Inj IV SCH (09:32)
[2020-11-24] MEDS: Irbesartan 150mg tablet ORAL SCH (09:33)
[2020-11-24] MEDS: Bystolic 2.5mg Tab ORAL SCH (09:33)
[2020-11-24] MEDS: Heparin 5000 units/ml inj SUBQ SCH ×2 (09:34→21:10)
--- NOTE | 2020-11-24 09:43 | Nephrology Progress Note ---
Assessment/Plan Problem List: (1) Renal failure (ARF), acute on chronic (2) Dehydration (3) COVID-19 (4) Lactic acidosis Assessment Renal failure, acute Possible underlying chronic kidney disease Dehydration COVID-19 infection, pneumonia Lactic acidosis 3+ proteinuria, hematuria with too many RBCs in the urine Plan November 24: Labs reviewed. Serum creatinine 1.5. Clinically stable. Continue per consultants. November 23: Labs reviewed. Serum creatinine 1.8. Electrolytes stable. Continue as is. November 22: Labs reviewed. Serum creatinine 1.7. Serum sodium 135. Bolus of 500 cc normal saline given. Continue per consultants. November 21: Labs reviewed. Serum creatinine 1.8. Low phosphorus addressed. Patient full code. Continue per consultants. Previously: Slow hydration Monitor renal parameters Monitor electrolytes Keep the blood pressure blood sugar in check Antibiotics per ID Avoid nephrotoxic's Per orders Subjective ROS Limited/Unobtainable: No Constitutional: Reports: malaise Objective Objective Last 24 Hour Vital Signs Date Time Temp Pulse Resp B/P (MAP) Pulse Ox O2 Delivery O2 Flow Rate FiO2 11/24/20 09:33 122/67 11/24/20 08:22 95 Nasal Cannula 5.0 40 11/24/20 08:00 97.0 63 24 122/67 (85) 88 11/24/20 04:00 97.4 61 18 113/60 (77) 90 11/24/20 00:50 99.8 11/24/20 00:00 100.4 71 20 132/60 (84) 91 11/23/20 21:31 Nasal Cannula 5.0 11/23/20 20:19 95 Nasal Cannula 5.0 40 11/23/20 20:00 97.6 67 19 121/67 (85) 95 11/23/20 16:00 97.3 61 18 119/63 (81) 93 11/23/20 12:00 97.5 63 19 107/58 (74) 92 Intake and Output 11/23/20 11/24/20 19:00 07:00 Intake Total 1320 ml Balance 1320 ml Intake Oral 720 ml IV Total 600 ml # Voids 2 # Bowel Movements 1 1 Laboratory Tests 11/23/20 11:28: POC Whole Blood Glucose 182H 11/23/20 16:47: POC Whole Blood Glucose 216H 11/24/20 05:15: White Blood Count 8.8, Red Blood Count 3.79L, Hemoglobin 12.1L, Hematocrit 35.1L , Mean Corpuscular Volume 93, Mean Corpuscular Hemoglobin 31.8H, Mean Corpuscular Hemoglobin Concent 34.4, Red Cell Distribution Width 12.9, Platelet Count 144L, Mean Platelet Volume 10.0, Neutrophils (%) (Auto) , Lymphocytes (%) (Auto) , Monocytes (%) (Auto) , Eosinophils (%) (Auto) , Basophils (%) (Auto) , Neutrophils % (Manual) [Pending], Lymphocytes % (Manual) [Pending], Platelet Estimate [Pending], Platelet Morphology [Pending], Sodium Level 137, Potassium Level 4.1, Chloride Level 106, Carbon Dioxide Level 20L, Anion Gap 11, Blood Urea Nitrogen 32H, Creatinine 1.5H, Estimat Glomerular Filtration Rate 44.5, Glucose Level 139H, Calcium Level 8.2L Height (Feet): 5 Height (Inches): 8.00 Weight (Pounds): 190 General Appearance: no apparent distress Cardiovascular: normal rate Respiratory/Chest: decreased breath sounds Abdomen: soft Ac Castro MD Nov 24, 2020 09:43
[2020-11-24 10:17] LABS: ALANINE AMINOTRANSFERASE 53 U/L (12-78); ALBUMIN 2.1 G/DL (3.4-5.0); ALKALINE PHOSPHATASE 50 U/L (46-116); ASPARTATE AMINO TRANSFERASE 103 U/L (15-37); BILIRUBIN,DIRECT 0.3 MG/DL (0.0-0.3); BILIRUBIN,TOTAL 0.6 MG/DL (0.2-1.0); PHOSPHORUS 2.4 MG/DL (2.5-4.9)
--- NOTE | 2020-11-24 11:15 | NUR ---
CASE MANAGEMENT:REVIEW 11/24/20 SI: COVID PNA. AC/CHR RENAL FAILURE 100.4 63 24 122/67 95% ON 5L/NC H/H-12.1/35.1 PLT-144 BUN+32 CR+1.5 IS: IV DECADRON QD AVAPRO PO QD ASA PO QD VIT D PO QD BYSTOLIC PO QD REQUIP PO QD LIPITOR PO QHS PROTONIX PO Q12 MIDODRINE PO TID HEPARIN SQ Q12 : MED/SURG STATUS 4 EAST DCP: FROM HOME
--- NOTE | 2020-11-24 11:23 | Infectious Diseases Prog Note ---
Assessment/Plan Assessment/Plan antibiotics :none A 1. covid 19 pneumonia on 5 liters O2 with 95 % saturation s/p ivermectin 2. COPD 3. hyperlipidemia 4. BPH P 1. d/c dexamethasone 2. start solumedrol 3. continue isolation Subjective ROS Limited/Unobtainable: Yes Allergies: Coded Allergies: No Known Allergies (Unverified , 10/20/12) Objective Last 24 Hour Vital Signs Date Time Temp Pulse Resp B/P (MAP) Pulse Ox O2 Delivery O2 Flow Rate FiO2 11/24/20 09:33 122/67 11/24/20 08:22 95 Nasal Cannula 5.0 40 11/24/20 08:00 97.0 63 24 122/67 (85) 88 11/24/20 04:00 97.4 61 18 113/60 (77) 90 11/24/20 00:50 99.8 11/24/20 00:00 100.4 71 20 132/60 (84) 91 11/23/20 21:31 Nasal Cannula 5.0 11/23/20 20:19 95 Nasal Cannula 5.0 40 11/23/20 20:00 97.6 67 19 121/67 (85) 95 11/23/20 16:00 97.3 61 18 119/63 (81) 93 11/23/20 12:00 97.5 63 19 107/58 (74) 92 Height (Feet): 5 Height (Inches): 8.00 Weight (Pounds): 190 Laboratory Tests Test 11/23/20 11:28 11/23/20 16:47 11/24/20 05:15 POC Whole Blood Glucose 182 MG/DL (74-106) H 216 MG/DL (74-106) H White Blood Count 8.8 K/UL (4.8-10.8) Red Blood Count 3.79 M/UL (4.70-6.10) L Hemoglobin 12.1 G/DL (14.2-18.0) L Hematocrit 35.1 % (42.0-52.0) L Mean Corpuscular Volume 93 FL (80-99) Mean Corpuscular Hemoglobin 31.8 PG (27.0-31.0) H Mean Corpuscular Hemoglobin Concent 34.4 G/DL (32.0-36.0) Red Cell Distribution Width 12.9 % (11.6-14.8) Platelet Count 144 K/UL (150-450) L Mean Platelet Volume 10.0 FL (6.5-10.1) Neutrophils (%) (Auto) % (45.0-75.0) Lymphocytes (%) (Auto) % (20.0-45.0) Monocytes (%) (Auto) % (1.0-10.0) Eosinophils (%) (Auto) % (0.0-3.0) Basophils (%) (Auto) % (0.0-2.0) Differential Total Cells Counted 100 Neutrophils % (Manual) 84 % (45-75) H Lymphocytes % (Manual) 12 % (20-45) L Monocytes % (Manual) 4 % (1-10) Eosinophils % (Manual) 0 % (0-3) Basophils % (Manual) 0 % (0-2) Band Neutrophils 0 % (0-8) Platelet Estimate Adequate Platelet Morphology Normal Red Blood Cell Morphology Normal Sodium Level 137 MMOL/L (136-145) Potassium Level 4.1 MMOL/L (3.5-5.1) Chloride Level 106 MMOL/L (98-107) Carbon Dioxide Level 20 MMOL/L (21-32) L Anion Gap 11 mmol/L (5-15) Blood Urea Nitrogen 32 mg/dL (7-18) H Creatinine 1.5 MG/DL (0.55-1.30) H Estimat Glomerular Filtration Rate 44.5 mL/min (>60) Glucose Level 139 MG/DL (74-106) H Calcium Level 8.2 MG/DL (8.5-10.1) L Phosphorus Level 2.4 MG/DL (2.5-4.9) L Magnesium Level 2.6 MG/DL (1.8-2.4) H Total Bilirubin 0.6 MG/DL (0.2-1.0) Direct Bilirubin 0.3 MG/DL (0.0-0.3) Aspartate Amino Transf (AST/SGOT) 103 U/L (15-37) H Alanine Aminotransferase (ALT/SGPT) 53 U/L (12-78) Alkaline Phosphatase 50 U/L (46-116) Total Protein 5.5 G/DL (6.4-8.2) L Albumin 2.1 G/DL (3.4-5.0) L Current Medications Medications (Trade) Dose Ordered Sig/Wilson Route PRN Reason Start Time Stop Time Status Last Admin Dose Admin Acetaminophen (Tylenol) 650 mg Q6H PRN ORAL Temp >100.5 11/20/20 04:30 12/20/20 04:29 11/23/20 23:57 Aspirin (ASA) 81 mg DAILY ORAL 11/21/20 09:00 01/05/21 08:59 11/24/20 09:32 Atorvastatin Calcium (Lipitor) 20 mg BEDTIME ORAL 11/20/20 21:00 02/18/21 20:59 11/23/20 20:26 Clonazepam (KlonoPIN) 0.5 mg HSPRN PRN ORAL For Anxiety 11/20/20 17:30 11/27/20 17:29 Dexamethasone Sodium Phosphate (Decadron 10mg/ ml Inj) 6 mg DAILY IV 11/21/20 11:15 11/30/20 09:01 11/24/20 09:32 Dextrose (Dextrose 50%) 25 ml Q30M PRN IV Hypoglycemia 11/20/20 04:30 02/18/21 04:29 Dextrose (Dextrose 50%) 50 ml Q30M PRN IV Hypoglycemia 11/20/20 04:30 02/18/21 04:29 Docusate Sodium (Colace) 100 mg THREE TIMES A DAY ORAL 11/20/20 13:00 12/20/20 12:59 11/24/20 09:32 Guaifenesin/ Dextromethorphan (Robitussin DM Syrup) 15 ml Q6H PRN ORAL For Cough 11/24/20 06:45 02/22/21 06:44 Heparin Sodium (Porcine) (Heparin 5000 units/ml) 5,000 units EVERY 12 HOURS SUBQ 11/20/20 09:00 01/04/21 08:59 11/24/20 09:34 Insulin Aspart (NovoLOG) BEFORE MEALS AND HS SUBQ 11/20/20 06:30 02/18/21 06:29 11/24/20 05:48 Irbesartan (Avapro) 300 mg DAILY ORAL 11/21/20 09:00 02/19/21 08:59 11/24/20 09:33 Meclizine HCl (Antivert) 25 mg EVERY 8 HOURS ORAL 11/21/20 22:00 12/21/20 21:59 11/24/20 05:46 Meclizine HCl (Antivert) 25 mg Q8H PRN ORAL for dizziness 11/20/20 17:30 12/20/20 17:29 Midodrine (Pro-Amatine) 5 mg THREE TIMES A DAY ORAL 11/20/20 20:00 02/18/21 19:59 11/24/20 09:33 Morphine Sulfate (Morphine Sulfate) 2 mg Q4H PRN IVP For Pain 11/20/20 04:30 11/27/20 04:29 Nebivolol (Bystolic) 2.5 mg DAILY ORAL 11/21/20 09:00 12/21/20 08:59 11/24/20 09:33 Pantoprazole (Protonix) 40 mg EVERY 12 HOURS ORAL 11/20/20 21:00 12/20/20 20:59 11/24/20 09:33 Patient Own Medication (Patient's Own Med) 1 ea DAILY ORAL 11/22/20 09:00 12/22/20 08:59 11/24/20 09:31 Patient Own Medication (Patient's Own Med) 1 ea DAILY ORAL 11/22/20 09:00 12/22/20 08:59 11/24/20 09:31 Ropinirole HCl (Requip) 1 mg DAILY ORAL 11/21/20 09:00 12/21/20 08:59 11/24/20 09:32 Sodium Chloride 1,000 ml @ 50 mls/hr Q20H IV 11/20/20 12:30 12/20/20 12:29 11/23/20 20:28 Tamsulosin HCl (Flomax) 0.4 mg TWICE A DAY ORAL 11/20/20 18:00 12/20/20 17:59 11/24/20 09:31 Vitamin D (Vitamin D) 5,000 unit DAILY ORAL 11/21/20 09:00 12/21/20 08:59 11/24/20 09:32 Eliud Jennings MD Nov 24, 2020 11:23
--- NOTE | 2020-11-24 11:30 | Hematology/Onc Progress Note ---
Assessment/Plan Assessment/Plan Assessment and Recs # Thrombocytopenia likely related to underlying [id number]++++++ --> smear reviewed, no blasts --> hep and hiv as needed --> supportive care for now --> transfuse prn basis --> ABX --> plt 144 # Anemia of chronic disease --> trend hgb 12 --> no hemolysis # COVID-19 --> per pulm and id recs --> abx ctx/azithro # Elevated ddimer poa --> duplex legs-->neg # Pneumonia --> as above # Renal failure --> ivfs # Dehydration --> goal euvolemia # Lactic acidosis # Dvt ppx heparin sq Appreciate consultation and appreciate consultation Subjective HEENT: Denies: no symptoms, eye pain, blurred vision, tearing, double vision, ear pain, ear discharge, nose pain, nose congestion, throat pain, throat swelling, mouth pain, mouth swelling, other Cardiovascular: Denies: no symptoms, chest pain, edema, irregular heart rate, lightheadedness, palpitations, syncope, other Respiratory: Denies: no symptoms, cough, shortness of breath, SOB with excertion, SOB at rest, sputum, wheezing, other Genitourinary: Denies: no symptoms, burning, discharge, frequency, flank pain, hematuria, incontinence, pain, urgency, other Hematologic/Lymphatic: Denies: no symptoms, anemia, easy bleeding, easy bruising, adenopathy, other Allergies: Coded Allergies: No Known Allergies (Unverified , 10/20/12) Subjective 11/24 on 5l oxygen, no bleeding, says is more comfortable, but not fully at baseline Objective Objective Current Medications Medications (Trade) Dose Ordered Sig/Wilson Route PRN Reason Start Time Stop Time Status Last Admin Dose Admin Acetaminophen (Tylenol) 650 mg Q6H PRN ORAL Temp >100.5 11/20/20 04:30 12/20/20 04:29 11/23/20 23:57 Aspirin (ASA) 81 mg DAILY ORAL 11/21/20 09:00 01/05/21 08:59 11/24/20 09:32 Atorvastatin Calcium (Lipitor) 20 mg BEDTIME ORAL 11/20/20 21:00 02/18/21 20:59 11/23/20 20:26 Clonazepam (KlonoPIN) 0.5 mg HSPRN PRN ORAL For Anxiety 11/20/20 17:30 11/27/20 17:29 Dextrose (Dextrose 50%) 25 ml Q30M PRN IV Hypoglycemia 11/20/20 04:30 02/18/21 04:29 Dextrose (Dextrose 50%) 50 ml Q30M PRN IV Hypoglycemia 11/20/20 04:30 02/18/21 04:29 Docusate Sodium (Colace) 100 mg THREE TIMES A DAY ORAL 11/20/20 13:00 12/20/20 12:59 11/24/20 09:32 Guaifenesin/ Dextromethorphan (Robitussin DM Syrup) 15 ml Q6H PRN ORAL For Cough 11/24/20 06:45 02/22/21 06:44 Heparin Sodium (Porcine) (Heparin 5000 units/ml) 5,000 units EVERY 12 HOURS SUBQ 11/20/20 09:00 01/04/21 08:59 11/24/20 09:34 Insulin Aspart (NovoLOG) BEFORE MEALS AND HS SUBQ 11/20/20 06:30 02/18/21 06:29 11/24/20 05:48 Irbesartan (Avapro) 300 mg DAILY ORAL 11/21/20 09:00 02/19/21 08:59 11/24/20 09:33 Meclizine HCl (Antivert) 25 mg EVERY 8 HOURS ORAL 11/21/20 22:00 12/21/20 21:59 11/24/20 05:46 Meclizine HCl (Antivert) 25 mg Q8H PRN ORAL for dizziness 11/20/20 17:30 12/20/20 17:29 Methylprednisolone Sodium Succinate (Solu-MEDROL) 40 mg EVERY 12 HOURS IVP 11/24/20 11:30 02/22/21 11:29 UNV Midodrine (Pro-Amatine) 5 mg THREE TIMES A DAY ORAL 11/20/20 20:00 02/18/21 19:59 11/24/20 09:33 Morphine Sulfate (Morphine Sulfate) 2 mg Q4H PRN IVP For Pain 11/20/20 04:30 11/27/20 04:29 Nebivolol (Bystolic) 2.5 mg DAILY ORAL 11/21/20 09:00 12/21/20 08:59 11/24/20 09:33 Pantoprazole (Protonix) 40 mg EVERY 12 HOURS ORAL 11/20/20 21:00 12/20/20 20:59 11/24/20 09:33 Patient Own Medication (Patient's Own Med) 1 ea DAILY ORAL 11/22/20 09:00 12/22/20 08:59 11/24/20 09:31 Patient Own Medication (Patient's Own Med) 1 ea DAILY ORAL 11/22/20 09:00 12/22/20 08:59 11/24/20 09:31 Ropinirole HCl (Requip) 1 mg DAILY ORAL 11/21/20 09:00 12/21/20 08:59 11/24/20 09:32 Sodium Chloride 1,000 ml @ 50 mls/hr Q20H IV 11/20/20 12:30 12/20/20 12:29 11/23/20 20:28 Tamsulosin HCl (Flomax) 0.4 mg TWICE A DAY ORAL 11/20/20 18:00 12/20/20 17:59 11/24/20 09:31 Vitamin D (Vitamin D) 5,000 unit DAILY ORAL 11/21/20 09:00 12/21/20 08:59 11/24/20 09:32 Last 24 Hour Vital Signs Date Time Temp Pulse Resp B/P (MAP) Pulse Ox O2 Delivery O2 Flow Rate FiO2 11/24/20 09:33 122/67 11/24/20 08:22 95 Nasal Cannula 5.0 40 11/24/20 08:00 97.0 63 24 122/67 (85) 88 11/24/20 04:00 97.4 61 18 113/60 (77) 90 11/24/20 00:50 99.8 11/24/20 00:00 100.4 71 20 132/60 (84) 91 11/23/20 21:31 Nasal Cannula 5.0 11/23/20 20:19 95 Nasal Cannula 5.0 40 11/23/20 20:00 97.6 67 19 121/67 (85) 95 11/23/20 16:00 97.3 61 18 119/63 (81) 93 11/23/20 12:00 97.5 63 19 107/58 (74) 92 11/23/20 09:00 Nasal Cannula 5.0 11/23/20 08:48 98/57 11/23/20 08:00 97.9 60 19 98/57 (71) 93 11/23/20 07:49 92 Nasal Cannula 5.0 40 11/23/20 05:13 98.8 11/23/20 04:00 101.5 77 19 117/64 (81) 92 11/23/20 00:00 97.3 72 17 112/59 (76) 92 11/22/20 23:12 94 Nasal Cannula 5.0 40 11/22/20 21:00 Nasal Cannula 5.0 11/22/20 20:00 97.9 60 18 104/55 (71) 95 11/22/20 16:00 98.1 60 24 106/55 (72) 92 11/22/20 12:00 100.2 64 24 111/59 (76) 92 Intake and Output 11/23/20 11/24/20 19:00 07:00 Intake Total 1320 ml Balance 1320 ml Intake Oral 720 ml IV Total 600 ml # Voids 2 # Bowel Movements 1 1 Labs Test 11/21/20 12:11 11/21/20 16:44 11/21/20 20:41 11/22/20 05:17 POC Whole Blood Glucose 115 MG/DL (74-106) 137 MG/DL (74-106) Test 11/22/20 06:22 11/22/20 11:31 11/22/20 16:40 11/22/20 20:55 White Blood Count 6.4 K/UL (4.8-10.8) Red Blood Count 4.05 M/UL (4.70-6.10) Hemoglobin 12.7 G/DL (14.2-18.0) Hematocrit 37.3 % (42.0-52.0) Mean Corpuscular Volume 92 FL (80-99) Mean Corpuscular Hemoglobin 31.4 PG (27.0-31.0) Mean Corpuscular Hemoglobin Concent 34.1 G/DL (32.0-36.0) Red Cell Distribution Width 11.9 % (11.6-14.8) Platelet Count 126 K/UL (150-450) Mean Platelet Volume 8.9 FL (6.5-10.1) Neutrophils (%) (Auto) % (45.0-75.0) Lymphocytes (%) (Auto) % (20.0-45.0) Monocytes (%) (Auto) % (1.0-10.0) Eosinophils (%) (Auto) % (0.0-3.0) Basophils (%) (Auto) % (0.0-2.0) Differential Total Cells Counted 100 Neutrophils % (Manual) 90 % (45-75) Lymphocytes % (Manual) 6 % (20-45) Monocytes % (Manual) 4 % (1-10) Eosinophils % (Manual) 0 % (0-3) Basophils % (Manual) 0 % (0-2) Band Neutrophils 0 % (0-8) Platelet Estimate Decreased Platelet Morphology Normal Red Blood Cell Morphology Normal Sodium Level 135 MMOL/L (136-145) Potassium Level 4.6 MMOL/L (3.5-5.1) Chloride Level 103 MMOL/L (98-107) Carbon Dioxide Level 23 MMOL/L (21-32) Anion Gap 9 mmol/L (5-15) Blood Urea Nitrogen 34 mg/dL (7-18) Creatinine 1.7 MG/DL (0.55-1.30) Estimat Glomerular Filtration Rate 38.5 mL/min (>60) Glucose Level 115 MG/DL (74-106) Calcium Level 8.5 MG/DL (8.5-10.1) Phosphorus Level 2.5 MG/DL (2.5-4.9) Total Bilirubin 0.6 MG/DL (0.2-1.0) Aspartate Amino Transf (AST/SGOT) 186 U/L (15-37) Alanine Aminotransferase (ALT/SGPT) 63 U/L (12-78) Alkaline Phosphatase 37 U/L (46-116) Total Protein 6.3 G/DL (6.4-8.2) Albumin 2.5 G/DL (3.4-5.0) Globulin 3.8 g/dL Albumin/Globulin Ratio 0.7 (1.0-2.7) POC Whole Blood Glucose 134 MG/DL (74-106) 161 MG/DL (74-106) 170 MG/DL (74-106) Test 11/23/20 06:00 11/23/20 06:10 11/23/20 11:28 11/23/20 16:47 White Blood Count 6.7 K/UL (4.8-10.8) Red Blood Count 3.71 M/UL (4.70-6.10) Hemoglobin 11.8 G/DL (14.2-18.0) Hematocrit 33.9 % (42.0-52.0) Mean Corpuscular Volume 91 FL (80-99) Mean Corpuscular Hemoglobin 31.8 PG (27.0-31.0) Mean Corpuscular Hemoglobin Concent 34.8 G/DL (32.0-36.0) Red Cell Distribution Width 12.3 % (11.6-14.8) Platelet Count 125 K/UL (150-450) Mean Platelet Volume 9.4 FL (6.5-10.1) Neutrophils (%) (Auto) % (45.0-75.0) Lymphocytes (%) (Auto) % (20.0-45.0) Monocytes (%) (Auto) % (1.0-10.0) Eosinophils (%) (Auto) % (0.0-3.0) Basophils (%) (Auto) % (0.0-2.0) Differential Total Cells Counted 100 Neutrophils % (Manual) 92 % (45-75) Lymphocytes % (Manual) 4 % (20-45) Monocytes % (Manual) 4 % (1-10) Eosinophils % (Manual) 0 % (0-3) Basophils % (Manual) 0 % (0-2) Band Neutrophils 0 % (0-8) Platelet Estimate Decreased Platelet Morphology Normal Hypochromasia 1+ Sodium Level 136 MMOL/L (136-145) Potassium Level 4.0 MMOL/L (3.5-5.1) Chloride Level 105 MMOL/L (98-107) Carbon Dioxide Level 20 MMOL/L (21-32) Anion Gap 11 mmol/L (5-15) Blood Urea Nitrogen 35 mg/dL (7-18) Creatinine 1.8 MG/DL (0.55-1.30) Estimat Glomerular Filtration Rate 36.0 mL/min (>60) Glucose Level 122 MG/DL (74-106) Calcium Level 8.3 MG/DL (8.5-10.1) POC Whole Blood Glucose 130 MG/DL (74-106) 182 MG/DL (74-106) 216 MG/DL (74-106) Test 11/24/20 05:15 White Blood Count 8.8 K/UL (4.8-10.8) Red Blood Count 3.79 M/UL (4.70-6.10) Hemoglobin 12.1 G/DL (14.2-18.0) Hematocrit 35.1 % (42.0-52.0) Mean Corpuscular Volume 93 FL (80-99) Mean Corpuscular Hemoglobin 31.8 PG (27.0-31.0) Mean Corpuscular Hemoglobin Concent 34.4 G/DL (32.0-36.0) Red Cell Distribution Width 12.9 % (11.6-14.8) Platelet Count 144 K/UL (150-450) Mean Platelet Volume 10.0 FL (6.5-10.1) Neutrophils (%) (Auto) % (45.0-75.0) Lymphocytes (%) (Auto) % (20.0-45.0) Monocytes (%) (Auto) % (1.0-10.0) Eosinophils (%) (Auto) % (0.0-3.0) Basophils (%) (Auto) % (0.0-2.0) Differential Total Cells Counted 100 Neutrophils % (Manual) 84 % (45-75) Lymphocytes % (Manual) 12 % (20-45) Monocytes % (Manual) 4 % (1-10) Eosinophils % (Manual) 0 % (0-3) Basophils % (Manual) 0 % (0-2) Band Neutrophils 0 % (0-8) Platelet Estimate Adequate Platelet Morphology Normal Red Blood Cell Morphology Normal Sodium Level 137 MMOL/L (136-145) Potassium Level 4.1 MMOL/L (3.5-5.1) Chloride Level 106 MMOL/L (98-107) Carbon Dioxide Level 20 MMOL/L (21-32) Anion Gap 11 mmol/L (5-15) Blood Urea Nitrogen 32 mg/dL (7-18) Creatinine 1.5 MG/DL (0.55-1.30) Estimat Glomerular Filtration Rate 44.5 mL/min (>60) Glucose Level 139 MG/DL (74-106) Calcium Level 8.2 MG/DL (8.5-10.1) Phosphorus Level 2.4 MG/DL (2.5-4.9) Magnesium Level 2.6 MG/DL (1.8-2.4) Total Bilirubin 0.6 MG/DL (0.2-1.0) Direct Bilirubin 0.3 MG/DL (0.0-0.3) Aspartate Amino Transf (AST/SGOT) 103 U/L (15-37) Alanine Aminotransferase (ALT/SGPT) 53 U/L (12-78) Alkaline Phosphatase 50 U/L (46-116) Total Protein 5.5 G/DL (6.4-8.2) Albumin 2.1 G/DL (3.4-5.0) Height (Feet): 5 Height (Inches): 8.00 Weight (Pounds): 190 Objective Physical Exam Sp02 EP Interpretation: reviewed, normal General: no apparent distress, alert, GCS 15, non-toxic Heent: hearing grossly normal, normal pharynx, no angioedema, normal voice Neck: full range of motion, supple/symm/no masses Respiratory: chest non-tender, lungs clear, normal breath sounds Cardiovasc: regular rate, rhythm, no edema Gastrointestinal: normal bowel sounds, non tender, soft, non-distended, no guarding, no rebound Rectal: deferred Musculoskeletal: back normal, normal range of motion Neurologic: alert, motor strength/tone normal Psychiatric: judgement/insight normal, memory normal Skin: no rash, normal color Gabriel Orozco MD Nov 24, 2020 11:30
[2020-11-24 12:00] VITALS: BP 135/69
[2020-11-24] MEDS: Solu-MEDROL 40mg Inj IVP SCH ×2 (12:14→21:09)
--- NOTE | 2020-11-24 12:24 | Pulmonology Progress Note ---
Subjective ROS Limited/Unobtainable: Yes Interval Events: none major reported per nursing Constitutional: Denies: fever HEENT: Repors: no symptoms Respiratory: Reports: shortness of breath Cardiovascular: Reports: no symptoms Gastrointestinal/Abdominal: Reports: no symptoms Allergies: Coded Allergies: No Known Allergies (Unverified , 10/20/12) All Systems: reviewed and negative except above Objective Last 24 Hour Vital Signs Date Time Temp Pulse Resp B/P (MAP) Pulse Ox O2 Delivery O2 Flow Rate FiO2 11/24/20 09:33 122/67 11/24/20 09:00 Non-Rebreather 5.0 11/24/20 08:22 95 Nasal Cannula 5.0 40 11/24/20 08:00 97.0 63 24 122/67 (85) 88 11/24/20 04:00 97.4 61 18 113/60 (77) 90 11/24/20 00:50 99.8 11/24/20 00:00 100.4 71 20 132/60 (84) 91 11/23/20 21:31 Nasal Cannula 5.0 11/23/20 20:19 95 Nasal Cannula 5.0 40 11/23/20 20:00 97.6 67 19 121/67 (85) 95 11/23/20 16:00 97.3 61 18 119/63 (81) 93 Intake and Output 11/23/20 11/24/20 19:00 07:00 Intake Total 1320 ml Balance 1320 ml Intake Oral 720 ml IV Total 600 ml # Voids 2 # Bowel Movements 1 1 General Appearance: no acute distress HEENT: atraumatic Respiratory: lungs clear Cardiovascular: normal rate Abdomen: soft, non tender Laboratory Tests 11/23/20 16:47: POC Whole Blood Glucose 216H 11/24/20 05:15: White Blood Count 8.8, Red Blood Count 3.79L, Hemoglobin 12.1L, Hematocrit 35.1L , Mean Corpuscular Volume 93, Mean Corpuscular Hemoglobin 31.8H, Mean Corpuscular Hemoglobin Concent 34.4, Red Cell Distribution Width 12.9, Platelet Count 144L, Mean Platelet Volume 10.0, Neutrophils (%) (Auto) , Lymphocytes (%) (Auto) , Monocytes (%) (Auto) , Eosinophils (%) (Auto) , Basophils (%) (Auto) , Differential Total Cells Counted 100, Neutrophils % (Manual) 84H, Lymphocytes % (Manual) 12L, Monocytes % (Manual) 4, Eosinophils % (Manual) 0, Basophils % (Manual) 0, Band Neutrophils 0, Platelet Estimate Adequate, Platelet Morphology Normal, Red Blood Cell Morphology Normal, Sodium Level 137, Potassium Level 4.1, Chloride Level 106, Carbon Dioxide Level 20L, Anion Gap 11, Blood Urea Nitrogen 32H, Creatinine 1.5H, Estimat Glomerular Filtration Rate 44.5, Glucose Level 139H, Calcium Level 8.2L, Phosphorus Level 2.4L, Magnesium Level 2.6H, Total Bilirubin 0.6, Direct Bilirubin 0.3, Aspartate Amino Transf (AST/SGOT) 103H, Alanine Aminotransferase (ALT/SGPT) 53, Alkaline Phosphatase 50, Total Protein 5.5L, Albumin 2.1L 11/24/20 12:07: POC Whole Blood Glucose 143H Current Medications Medications (Trade) Dose Ordered Sig/Wilson Route PRN Reason Start Time Stop Time Status Last Admin Dose Admin Acetaminophen (Tylenol) 650 mg Q6H PRN ORAL Temp >100.5 11/20/20 04:30 12/20/20 04:29 11/23/20 23:57 Aspirin (ASA) 81 mg DAILY ORAL 11/21/20 09:00 01/05/21 08:59 11/24/20 09:32 Atorvastatin Calcium (Lipitor) 20 mg BEDTIME ORAL 11/20/20 21:00 02/18/21 20:59 11/23/20 20:26 Clonazepam (KlonoPIN) 0.5 mg HSPRN PRN ORAL For Anxiety 11/20/20 17:30 11/27/20 17:29 Dextrose (Dextrose 50%) 25 ml Q30M PRN IV Hypoglycemia 11/20/20 04:30 02/18/21 04:29 Dextrose (Dextrose 50%) 50 ml Q30M PRN IV Hypoglycemia 11/20/20 04:30 02/18/21 04:29 Docusate Sodium (Colace) 100 mg THREE TIMES A DAY ORAL 11/20/20 13:00 12/20/20 12:59 11/24/20 12:12 Guaifenesin/ Dextromethorphan (Robitussin DM Syrup) 15 ml Q6H PRN ORAL For Cough 11/24/20 06:45 02/22/21 06:44 Heparin Sodium (Porcine) (Heparin 5000 units/ml) 5,000 units EVERY 12 HOURS SUBQ 11/20/20 09:00 01/04/21 08:59 11/24/20 09:34 Insulin Aspart (NovoLOG) BEFORE MEALS AND HS SUBQ 11/20/20 06:30 02/18/21 06:29 11/24/20 12:17 Irbesartan (Avapro) 300 mg DAILY ORAL 11/21/20 09:00 02/19/21 08:59 11/24/20 09:33 Meclizine HCl (Antivert) 25 mg EVERY 8 HOURS ORAL 11/21/20 22:00 12/21/20 21:59 11/24/20 05:46 Meclizine HCl (Antivert) 25 mg Q8H PRN ORAL for dizziness 11/20/20 17:30 12/20/20 17:29 Methylprednisolone Sodium Succinate (Solu-MEDROL) 40 mg EVERY 12 HOURS IVP 11/24/20 11:30 02/22/21 11:29 11/24/20 12:14 Midodrine (Pro-Amatine) 5 mg THREE TIMES A DAY ORAL 11/20/20 20:00 02/18/21 19:59 11/24/20 12:13 Morphine Sulfate (Morphine Sulfate) 2 mg Q4H PRN IVP For Pain 11/20/20 04:30 11/27/20 04:29 Nebivolol (Bystolic) 2.5 mg DAILY ORAL 11/21/20 09:00 12/21/20 08:59 11/24/20 09:33 Pantoprazole (Protonix) 40 mg EVERY 12 HOURS ORAL 11/20/20 21:00 12/20/20 20:59 11/24/20 09:33 Patient Own Medication (Patient's Own Med) 1 ea DAILY ORAL 11/22/20 09:00 12/22/20 08:59 11/24/20 09:31 Patient Own Medication (Patient's Own Med) 1 ea DAILY ORAL 11/22/20 09:00 12/22/20 08:59 11/24/20 09:31 Ropinirole HCl (Requip) 1 mg DAILY ORAL 11/21/20 09:00 12/21/20 08:59 11/24/20 09:32 Sodium Chloride 1,000 ml @ 50 mls/hr Q20H IV 11/20/20 12:30 12/20/20 12:29 11/23/20 20:28 Tamsulosin HCl (Flomax) 0.4 mg TWICE A DAY ORAL 11/20/20 18:00 12/20/20 17:59 11/24/20 09:31 Vitamin D (Vitamin D) 5,000 unit DAILY ORAL 11/21/20 09:00 12/21/20 08:59 11/24/20 09:32 Assessment/Plan Assessment/Plan 1. COVID-19 pneumonia with history of fever (T-max= 101.5) -now on 15L NRB saturating at 98%% -Given x-ray findings and history of fever, we will continue broad-spectrum antibiotics for pneumonia coverage - s/p dexamethasone 2. Weakness - seen by PT 3. SOUMYA -IV fluids -Monitor renal parameters 4. Diabetes mellitus with hyperglycemia -On insulin 5. Elevated inflammatory markers -On heparin, given elevated BUN, Cr 6. Obstructive sleep apnea -Patient reports using CPAP at night -We will continue CPAP at night with the setting of 12 10. New onset fever - Vogw=708.4 - no leukocytosis - monitor 11. DVT ppx - Venous duplex negative for DVT - on heparin subQ q12h The care for this patient was discussed with my supervising physician. Time spent for this case was approximately 31 minutes. Wm Marx Nov 24, 2020 12:24
[2020-11-24 16:00] VITALS: BP 136/71
--- NOTE | 2020-11-24 19:19 | NUR ---
NURSE NOTES: Given report to Mary LOYN, pt in stable condition. - pt is in a none rebreather mask at 15L - pt was able to ambulate with PT today
--- NOTE | 2020-11-24 19:34 | NUR ---
NURSE NOTES: Patient in bed, on Non rebreather mask at 15LPM Oxygen, IV access on left forearm g.22 running NS @ 50ml/hr. Instructed patient to use call light for help. Call light in reach. Bed in lowest, lock engaged and alarm on. Will continue to monitor.
[2020-11-24 20:00] VITALS: BP 151/73
[2020-11-24] MEDS: Atorvastatin 20mg tab ORAL SCH (21:09)
[2020-11-25] VITALS (7 sets, daily range): BP systolic 114–148; BP diastolic 72–81
[2020-11-25] MEDS: Meclizine 25mg tab ORAL SCH ×3 (05:16→21:10)
[2020-11-25] MEDS: NovoLOG Insulin Flexpen SUBQ SCH ×4 (05:26→21:23)
--- NOTE | 2020-11-25 06:30 | Hematology/Onc Progress Note ---
Assessment/Plan Assessment/Plan Assessment and Recs # Thrombocytopenia likely related to underlying covid19++++++ --> smear reviewed, no blasts --> hep and hiv as needed --> supportive care for now --> transfuse prn basis --> ABX --> plt 144 # Anemia of chronic disease --> trend hgb 12 --> no hemolysis # COVID-19 --> per pulm and id recs --> abx ctx/azithro # Elevated ddimer poa --> duplex legs-->neg # Pneumonia --> as above # Renal failure --> ivfs # Dehydration --> goal euvolemia # Lactic acidosis # Dvt ppx heparin sq Appreciate consultation and appreciate consultation Subjective Constitutional: Denies: no symptoms, chills, fever, malaise, weakness, other HEENT: Denies: no symptoms, eye pain, blurred vision, tearing, double vision, ear pain, ear discharge, nose pain, nose congestion, throat pain, throat swelling, mouth pain, mouth swelling, other Cardiovascular: Denies: no symptoms, chest pain, edema, irregular heart rate, lightheadedness, palpitations, syncope, other Respiratory: Denies: no symptoms, cough, shortness of breath, SOB with excertion, SOB at rest, sputum, wheezing, other Gastrointestinal/Abdominal: Denies: no symptoms, abdomen distended, abdominal pain, black stools, tarry stools, blood in stool, constipated, diarrhea, difficulty swallowing, nausea, poor appetite, poor fluid intake, rectal bleeding, vomiting, other Genitourinary: Denies: no symptoms, burning, discharge, frequency, flank pain, hematuria, incontinence, pain, urgency, other Neurologic/Psychiatric: Denies: no symptoms, anxiety, depressed, emotional problems, headache, numbness, paresthesia, pre-existing deficit, seizure, tingling, tremors, weakness, other Endocrine: Denies: no symptoms, excessive sweating, flushing, intolerance to cold, intolerance to heat, increased hunger, increased thirst, increased urine, unexplained weight gain, unexplained weight loss, other Allergies: Coded Allergies: No Known Allergies (Unverified , 10/20/12) Subjective 11/24 on 5l oxygen, no bleeding, says is more comfortable, but not fully at baseline 1/26 nonrebreather, labs noted, no bleeding, dw rn, on [facility] Objective Objective Current Medications Medications (Trade) Dose Ordered Sig/Wilson Route PRN Reason Start Time Stop Time Status Last Admin Dose Admin Acetaminophen (Tylenol) 650 mg Q6H PRN ORAL Temp >100.5 11/20/20 04:30 12/20/20 04:29 11/23/20 23:57 Aspirin (ASA) 81 mg DAILY ORAL 11/21/20 09:00 01/05/21 08:59 11/24/20 09:32 Atorvastatin Calcium (Lipitor) 20 mg BEDTIME ORAL 11/20/20 21:00 02/18/21 20:59 11/24/20 21:09 Clonazepam (KlonoPIN) 0.5 mg HSPRN PRN ORAL For Anxiety 11/20/20 17:30 11/27/20 17:29 Dextrose (Dextrose 50%) 25 ml Q30M PRN IV Hypoglycemia 11/20/20 04:30 02/18/21 04:29 Dextrose (Dextrose 50%) 50 ml Q30M PRN IV Hypoglycemia 11/20/20 04:30 02/18/21 04:29 Docusate Sodium (Colace) 100 mg THREE TIMES A DAY ORAL 11/20/20 13:00 12/20/20 12:59 11/24/20 19:14 Guaifenesin/ Dextromethorphan (Robitussin DM Syrup) 15 ml Q6H PRN ORAL For Cough 11/24/20 06:45 02/22/21 06:44 Heparin Sodium (Porcine) (Heparin 5000 units/ml) 5,000 units EVERY 12 HOURS SUBQ 11/20/20 09:00 01/04/21 08:59 11/24/20 21:10 Insulin Aspart (NovoLOG) BEFORE MEALS AND HS SUBQ 11/20/20 06:30 02/18/21 06:29 11/25/20 05:26 Irbesartan (Avapro) 300 mg DAILY ORAL 11/21/20 09:00 02/19/21 08:59 11/24/20 09:33 Meclizine HCl (Antivert) 25 mg EVERY 8 HOURS ORAL 11/21/20 22:00 12/21/20 21:59 11/25/20 05:16 Meclizine HCl (Antivert) 25 mg Q8H PRN ORAL for dizziness 11/20/20 17:30 12/20/20 17:29 Methylprednisolone Sodium Succinate (Solu-MEDROL) 40 mg EVERY 12 HOURS IVP 11/24/20 11:30 02/22/21 11:29 11/24/20 21:09 Midodrine (Pro-Amatine) 5 mg THREE TIMES A DAY ORAL 11/20/20 20:00 02/18/21 19:59 11/24/20 19:14 Morphine Sulfate (Morphine Sulfate) 2 mg Q4H PRN IVP For Pain 11/20/20 04:30 11/27/20 04:29 Nebivolol (Bystolic) 2.5 mg DAILY ORAL 11/21/20 09:00 12/21/20 08:59 11/24/20 09:33 Pantoprazole (Protonix) 40 mg EVERY 12 HOURS ORAL 11/20/20 21:00 12/20/20 20:59 11/24/20 21:09 Patient Own Medication (Patient's Own Med) 1 ea DAILY ORAL 11/22/20 09:00 12/22/20 08:59 11/24/20 09:31 Patient Own Medication (Patient's Own Med) 1 ea DAILY ORAL 11/22/20 09:00 12/22/20 08:59 11/24/20 09:31 Ropinirole HCl (Requip) 1 mg DAILY ORAL 11/21/20 09:00 12/21/20 08:59 11/24/20 09:32 Sodium Chloride 1,000 ml @ 50 mls/hr Q20H IV 11/20/20 12:30 12/20/20 12:29 11/23/20 20:28 Tamsulosin HCl (Flomax) 0.4 mg TWICE A DAY ORAL 11/20/20 18:00 12/20/20 17:59 11/24/20 19:14 Vitamin D (Vitamin D) 5,000 unit DAILY ORAL 11/21/20 09:00 12/21/20 08:59 11/24/20 09:32 Last 24 Hour Vital Signs Date Time Temp Pulse Resp B/P (MAP) Pulse Ox O2 Delivery O2 Flow Rate FiO2 11/25/20 04:00 97.0 52 24 147/79 (101) 100 11/25/20 00:00 96.3 50 24 148/73 (98) 98 11/24/20 22:06 52 18 98 100 11/24/20 21:00 Non-Rebreather 15.0 11/24/20 20:00 96.6 52 22 151/73 (99) 97 11/24/20 19:25 95 Nasal Cannula 5.0 40 11/24/20 16:00 97.3 53 24 136/71 (92) 95 11/24/20 12:00 96.6 56 24 135/69 (91) 88 11/24/20 09:33 122/67 11/24/20 09:00 Non-Rebreather 5.0 11/24/20 08:22 95 Nasal Cannula 5.0 40 11/24/20 08:00 97.0 63 24 122/67 (85) 88 11/24/20 04:00 97.4 61 18 113/60 (77) 90 11/24/20 00:50 99.8 11/24/20 00:00 100.4 71 20 132/60 (84) 91 11/23/20 21:31 Nasal Cannula 5.0 11/23/20 20:19 95 Nasal Cannula 5.0 40 11/23/20 20:00 97.6 67 19 121/67 (85) 95 11/23/20 16:00 97.3 61 18 119/63 (81) 93 11/23/20 12:00 97.5 63 19 107/58 (74) 92 11/23/20 09:00 Nasal Cannula 5.0 11/23/20 08:48 98/57 11/23/20 08:00 97.9 60 19 98/57 (71) 93 11/23/20 07:49 92 Nasal Cannula 5.0 40 Intake and Output 11/24/20 11/25/20 19:00 07:00 Intake Total 720 ml 550 ml Output Total 200 ml 350 ml Balance 520 ml 200 ml Intake Oral 720 ml IV Total 550 ml Output Urine Total 200 ml 350 ml # Voids 1 Labs Test 11/22/20 11:31 11/22/20 16:40 11/22/20 20:55 11/23/20 06:00 POC Whole Blood Glucose 134 MG/DL (74-106) 161 MG/DL (74-106) 170 MG/DL (74-106) White Blood Count 6.7 K/UL (4.8-10.8) Red Blood Count 3.71 M/UL (4.70-6.10) Hemoglobin 11.8 G/DL (14.2-18.0) Hematocrit 33.9 % (42.0-52.0) Mean Corpuscular Volume 91 FL (80-99) Mean Corpuscular Hemoglobin 31.8 PG (27.0-31.0) Mean Corpuscular Hemoglobin Concent 34.8 G/DL (32.0-36.0) Red Cell Distribution Width 12.3 % (11.6-14.8) Platelet Count 125 K/UL (150-450) Mean Platelet Volume 9.4 FL (6.5-10.1) Neutrophils (%) (Auto) % (45.0-75.0) Lymphocytes (%) (Auto) % (20.0-45.0) Monocytes (%) (Auto) % (1.0-10.0) Eosinophils (%) (Auto) % (0.0-3.0) Basophils (%) (Auto) % (0.0-2.0) Differential Total Cells Counted 100 Neutrophils % (Manual) 92 % (45-75) Lymphocytes % (Manual) 4 % (20-45) Monocytes % (Manual) 4 % (1-10) Eosinophils % (Manual) 0 % (0-3) Basophils % (Manual) 0 % (0-2) Band Neutrophils 0 % (0-8) Platelet Estimate Decreased Platelet Morphology Normal Hypochromasia 1+ Sodium Level 136 MMOL/L (136-145) Potassium Level 4.0 MMOL/L (3.5-5.1) Chloride Level 105 MMOL/L (98-107) Carbon Dioxide Level 20 MMOL/L (21-32) Anion Gap 11 mmol/L (5-15) Blood Urea Nitrogen 35 mg/dL (7-18) Creatinine 1.8 MG/DL (0.55-1.30) Estimat Glomerular Filtration Rate 36.0 mL/min (>60) Glucose Level 122 MG/DL (74-106) Calcium Level 8.3 MG/DL (8.5-10.1) Test 11/23/20 06:10 11/23/20 11:28 11/23/20 16:47 11/24/20 05:15 POC Whole Blood Glucose 130 MG/DL (74-106) 182 MG/DL (74-106) 216 MG/DL (74-106) White Blood Count 8.8 K/UL (4.8-10.8) Red Blood Count 3.79 M/UL (4.70-6.10) Hemoglobin 12.1 G/DL (14.2-18.0) Hematocrit 35.1 % (42.0-52.0) Mean Corpuscular Volume 93 FL (80-99) Mean Corpuscular Hemoglobin 31.8 PG (27.0-31.0) Mean Corpuscular Hemoglobin Concent 34.4 G/DL (32.0-36.0) Red Cell Distribution Width 12.9 % (11.6-14.8) Platelet Count 144 K/UL (150-450) Mean Platelet Volume 10.0 FL (6.5-10.1) Neutrophils (%) (Auto) % (45.0-75.0) Lymphocytes (%) (Auto) % (20.0-45.0) Monocytes (%) (Auto) % (1.0-10.0) Eosinophils (%) (Auto) % (0.0-3.0) Basophils (%) (Auto) % (0.0-2.0) Differential Total Cells Counted 100 Neutrophils % (Manual) 84 % (45-75) Lymphocytes % (Manual) 12 % (20-45) Monocytes % (Manual) 4 % (1-10) Eosinophils % (Manual) 0 % (0-3) Basophils % (Manual) 0 % (0-2) Band Neutrophils 0 % (0-8) Platelet Estimate Adequate Platelet Morphology Normal Red Blood Cell Morphology Normal Sodium Level 137 MMOL/L (136-145) Potassium Level 4.1 MMOL/L (3.5-5.1) Chloride Level 106 MMOL/L (98-107) Carbon Dioxide Level 20 MMOL/L (21-32) Anion Gap 11 mmol/L (5-15) Blood Urea Nitrogen 32 mg/dL (7-18) Creatinine 1.5 MG/DL (0.55-1.30) Estimat Glomerular Filtration Rate 44.5 mL/min (>60) Glucose Level 139 MG/DL (74-106) Calcium Level 8.2 MG/DL (8.5-10.1) Phosphorus Level 2.4 MG/DL (2.5-4.9) Magnesium Level 2.6 MG/DL (1.8-2.4) Total Bilirubin 0.6 MG/DL (0.2-1.0) Direct Bilirubin 0.3 MG/DL (0.0-0.3) Aspartate Amino Transf (AST/SGOT) 103 U/L (15-37) Alanine Aminotransferase (ALT/SGPT) 53 U/L (12-78) Alkaline Phosphatase 50 U/L (46-116) Total Protein 5.5 G/DL (6.4-8.2) Albumin 2.1 G/DL (3.4-5.0) Test 11/24/20 12:07 11/24/20 16:24 11/24/20 21:17 11/25/20 05:40 POC Whole Blood Glucose 143 MG/DL (74-106) 169 MG/DL (74-106) Height (Feet): 5 Height (Inches): 8.00 Weight (Pounds): 190 Objective Physical Exam Sp02 EP Interpretation: reviewed, normal General: no apparent distress, alert, GCS 15, non-toxic Heent: hearing grossly normal, normal pharynx, no angioedema, normal voice Neck: full range of motion, supple/symm/no masses Respiratory: chest non-tender, lungs clear, normal breath sounds Cardiovasc: regular rate, rhythm, no edema Gastrointestinal: normal bowel sounds, non tender, soft, non-distended, no guarding, no rebound Rectal: deferred Musculoskeletal: back normal, normal range of motion Neurologic: alert, motor strength/tone normal Psychiatric: judgement/insight normal, memory normal Skin: no rash, normal color Gabriel Orozco MD Nov 25, 2020 06:30
[2020-11-25 06:38] LABS: HEMOGLOBIN 12.8 G/DL (14.2-18.0); MEAN CORPUSCULAR VOLUME 93 FL (80-99); PLATELET COUNT 163 K/UL (150-450); RED BLOOD COUNT 3.75 M/UL (4.70-6.10); RED CELL DISTRIBUTION WIDTH 13.4 % (11.6-14.8); WHITE BLOOD COUNT 6.3 K/UL (4.8-10.8)
[2020-11-25 06:42] LABS: CREATININE 1.4 MG/DL (0.55-1.30); POTASSIUM 4.4 MMOL/L (3.5-5.1)
--- NOTE | 2020-11-25 06:55 | NUR ---
NURSE HAND-OFF: Important Events on Shift: on non- rebreather mask @ 15LPm, CPAP at HS, hygiene, accuchecks Patient Status: Diet: ccho medium cardiac Pending Orders: Pending Results/Labs: Pending MD notification: Latest Vital Signs: Temperature 97.0 , Pulse 52 , B/P 147 /79 , Respiratory Rate 24 , O2 SAT 100 , Room Air, O2 Flow Rate 15.0 . Vital Sign Comment: Latest Delarosa Fall Score: 45 Fall Risk: High Risk Safety Measures: Call light Within Reach, Bed Alarm Zone 1, Side Rails Side Rails x2, Bed position Low and Locked. Fall Precautions: Door Sign Patient Fall Education Report given to CAMRON Walsh.
--- NOTE | 2020-11-25 07:36 | NUR ---
NURSE NOTES: Patient alert x3; on Non-Rebreather mask at 15 liters, on sign of distress and shortness of breath; no sing of chest pain; IV Left For-Arm 22G NS 150cc running; side rails up x2, breaks engaged, bed at lowest position, call light within reach; patient instructed to call for help. Will keep monitoring.
[2020-11-25] MEDS: Irbesartan 150mg tablet ORAL SCH (08:15)
[2020-11-25] MEDS: Docusate 100mg cap ORAL SCH ×3 (08:16→17:01)
[2020-11-25] MEDS: Heparin 5000 units/ml inj SUBQ SCH ×2 (08:16→21:24)
[2020-11-25] MEDS: Aspirin Baby 81mg ORAL SCH (08:16)
[2020-11-25] MEDS: Vitamin D 1000 units Tab ORAL SCH (08:17)
[2020-11-25] MEDS: Bystolic 2.5mg Tab ORAL SCH (08:17)
[2020-11-25] MEDS: Tamsulosin 0.4mg cap ORAL SCH ×2 (08:18→17:01)
[2020-11-25] MEDS: TRADJENTA 5 MG ORAL SCH (08:18)
[2020-11-25] MEDS: Solu-MEDROL 40mg Inj IVP SCH ×2 (08:18→21:10)
--- NOTE | 2020-11-25 10:04 | NUR ---
CASE MANAGEMENT:REVIEW 11/25/20 SI: COVID PNA. AC/CHR RENAL FAILURE 97.0 59 20 144/81 94% ON NRB 15L/100% BUN+31 CR+1.4 IS: IV SOLUMEDROL 40MG Q12 IVF@50/HR MECLIZINE PO Q8HRS AVAPRO PO QD ASA PO QD VIT D PO QD BYSTOLIC PO QD REQUIP PO QD LIPITOR PO QHS PROTONIX PO Q12 MIDODRINE PO TID HEPARIN SQ Q12 : MED/SURG STATUS 4 EAST DCP: FROM HOME
--- NOTE | 2020-11-25 10:09 | Nephrology Progress Note ---
Assessment/Plan Problem List: (1) Renal failure (ARF), acute on chronic (2) Dehydration (3) COVID-19 (4) Lactic acidosis Assessment Renal failure, acute Possible underlying chronic kidney disease Dehydration COVID-19 infection, pneumonia Lactic acidosis 3+ proteinuria, hematuria with too many RBCs in the urine Plan November 25: Labs reviewed. Serum creatinine 1.4. Clinically stable. Continue per consultants. November 24: Labs reviewed. Serum creatinine 1.5. Clinically stable. Continue per consultants. November 23: Labs reviewed. Serum creatinine 1.8. Electrolytes stable. Continue as is. November 22: Labs reviewed. Serum creatinine 1.7. Serum sodium 135. Bolus of 500 cc normal saline given. Continue per consultants. November 21: Labs reviewed. Serum creatinine 1.8. Low phosphorus addressed. Patient full code. Continue per consultants. Previously: Slow hydration Monitor renal parameters Monitor electrolytes Keep the blood pressure blood sugar in check Antibiotics per ID Avoid nephrotoxic's Per orders Subjective ROS Limited/Unobtainable: Yes Objective Objective Last 24 Hour Vital Signs Date Time Temp Pulse Resp B/P (MAP) Pulse Ox O2 Delivery O2 Flow Rate FiO2 11/25/20 09:00 Non-Rebreather 15.0 11/25/20 08:15 144/81 11/25/20 08:00 97.0 59 20 144/81 (102) 94 11/25/20 04:00 97.0 52 24 147/79 (101) 100 11/25/20 00:00 96.3 50 24 148/73 (98) 98 11/24/20 22:06 52 18 98 100 11/24/20 21:00 Non-Rebreather 15.0 11/24/20 20:00 96.6 52 22 151/73 (99) 97 11/24/20 19:25 95 Nasal Cannula 5.0 40 11/24/20 16:00 97.3 53 24 136/71 (92) 95 11/24/20 12:00 96.6 56 24 135/69 (91) 88 Intake and Output 11/24/20 11/25/20 19:00 07:00 Intake Total 720 ml 600 ml Output Total 200 ml 350 ml Balance 520 ml 250 ml Intake Oral 720 ml IV Total 600 ml Output Urine Total 200 ml 350 ml # Voids 1 Current Medications Medications (Trade) Dose Ordered Sig/Wilson Route PRN Reason Start Time Stop Time Status Last Admin Dose Admin Acetaminophen (Tylenol) 650 mg Q6H PRN ORAL Temp >100.5 11/20/20 04:30 12/20/20 04:29 11/23/20 23:57 Aspirin (ASA) 81 mg DAILY ORAL 11/21/20 09:00 01/05/21 08:59 11/25/20 08:16 Atorvastatin Calcium (Lipitor) 20 mg BEDTIME ORAL 11/20/20 21:00 02/18/21 20:59 11/24/20 21:09 Clonazepam (KlonoPIN) 0.5 mg HSPRN PRN ORAL For Anxiety 11/20/20 17:30 11/27/20 17:29 Dextrose (Dextrose 50%) 25 ml Q30M PRN IV Hypoglycemia 11/20/20 04:30 02/18/21 04:29 Dextrose (Dextrose 50%) 50 ml Q30M PRN IV Hypoglycemia 11/20/20 04:30 02/18/21 04:29 Docusate Sodium (Colace) 100 mg THREE TIMES A DAY ORAL 11/20/20 13:00 12/20/20 12:59 11/25/20 08:16 Guaifenesin/ Dextromethorphan (Robitussin DM Syrup) 15 ml Q6H PRN ORAL For Cough 11/24/20 06:45 02/22/21 06:44 Heparin Sodium (Porcine) (Heparin 5000 units/ml) 5,000 units EVERY 12 HOURS SUBQ 11/20/20 09:00 01/04/21 08:59 11/25/20 08:16 Insulin Aspart (NovoLOG) BEFORE MEALS AND HS SUBQ 11/20/20 06:30 02/18/21 06:29 11/25/20 05:26 Irbesartan (Avapro) 300 mg DAILY ORAL 11/21/20 09:00 02/19/21 08:59 11/25/20 08:15 Meclizine HCl (Antivert) 25 mg EVERY 8 HOURS ORAL 11/21/20 22:00 12/21/20 21:59 11/25/20 05:16 Meclizine HCl (Antivert) 25 mg Q8H PRN ORAL for dizziness 11/20/20 17:30 12/20/20 17:29 Methylprednisolone Sodium Succinate (Solu-MEDROL) 40 mg EVERY 12 HOURS IVP 11/24/20 11:30 02/22/21 11:29 11/25/20 08:18 Midodrine (Pro-Amatine) 5 mg THREE TIMES A DAY ORAL 11/20/20 20:00 02/18/21 19:59 11/25/20 08:17 Morphine Sulfate (Morphine Sulfate) 2 mg Q4H PRN IVP For Pain 11/20/20 04:30 11/27/20 04:29 Nebivolol (Bystolic) 2.5 mg DAILY ORAL 11/21/20 09:00 12/21/20 08:59 11/25/20 08:17 Pantoprazole (Protonix) 40 mg EVERY 12 HOURS ORAL 11/20/20 21:00 12/20/20 20:59 11/25/20 08:17 Patient Own Medication (Patient's Own Med) 1 ea DAILY ORAL 11/22/20 09:00 12/22/20 08:59 11/25/20 08:18 Patient Own Medication (Patient's Own Med) 1 ea DAILY ORAL 11/22/20 09:00 12/22/20 08:59 11/25/20 08:18 Ropinirole HCl (Requip) 1 mg DAILY ORAL 11/21/20 09:00 12/21/20 08:59 11/25/20 08:17 Sodium Chloride 1,000 ml @ 50 mls/hr Q20H IV 11/20/20 12:30 12/20/20 12:29 11/23/20 20:28 Tamsulosin HCl (Flomax) 0.4 mg TWICE A DAY ORAL 11/20/20 18:00 12/20/20 17:59 11/25/20 08:18 Vitamin D (Vitamin D) 5,000 unit DAILY ORAL 11/21/20 09:00 12/21/20 08:59 11/25/20 08:17 Laboratory Tests 11/24/20 12:07: POC Whole Blood Glucose 143H 11/24/20 16:24: POC Whole Blood Glucose 169H 11/24/20 21:17: POC Whole Blood Glucose [Pending] 11/25/20 05:40: White Blood Count 6.3, Red Blood Count 3.75L, Hemoglobin 12.8L, Hematocrit 35.0L , Mean Corpuscular Volume 93, Mean Corpuscular Hemoglobin 34.1H, Mean Corpuscular Hemoglobin Concent 36.5H, Red Cell Distribution Width 13.4, Platelet Count 163, Mean Platelet Volume 10.0, Neutrophils (%) (Auto) , Lymphocytes (%) (Auto) , Monocytes (%) (Auto) , Eosinophils (%) (Auto) , Basophils (%) (Auto) , Differential Total Cells Counted 100, Neutrophils % (Manual) 85H, Lymphocytes % (Manual) 11L, Monocytes % (Manual) 1, Eosinophils % (Manual) 0, Basophils % (Manual) 0, Band Neutrophils 3, Platelet Estimate Adequate, Platelet Morphology Normal, Red Blood Cell Morphology Normal, Sodium Level 138, Potassium Level 4.4, Chloride Level 106, Carbon Dioxide Level 24, Anion Gap 8, Blood Urea Nitrogen 31H, Creatinine 1.4H, Estimat Glomerular Filtration Rate 48.2, Glucose Level 180H, Calcium Level 8.0L Height (Feet): 5 Height (Inches): 8.00 Weight (Pounds): 190 General Appearance: no apparent distress EENT: other - On nonrebreather mask Cardiovascular: bradycardia Respiratory/Chest: decreased breath sounds Abdomen: distended Ac Castro MD Nov 25, 2020 10:09
--- NOTE | 2020-11-25 10:58 | Pulmonology Progress Note ---
Subjective ROS Limited/Unobtainable: Yes Interval Events: none major reported per nursing Constitutional: Denies: fever HEENT: Repors: no symptoms Respiratory: Reports: shortness of breath Cardiovascular: Reports: no symptoms Gastrointestinal/Abdominal: Reports: no symptoms Allergies: Coded Allergies: No Known Allergies (Unverified , 10/20/12) All Systems: reviewed and negative except above Objective Last 24 Hour Vital Signs Date Time Temp Pulse Resp B/P (MAP) Pulse Ox O2 Delivery O2 Flow Rate FiO2 11/25/20 09:00 Non-Rebreather 15.0 11/25/20 08:15 144/81 11/25/20 08:00 97.0 59 20 144/81 (102) 94 11/25/20 04:00 97.0 52 24 147/79 (101) 100 11/25/20 00:00 96.3 50 24 148/73 (98) 98 11/24/20 22:06 52 18 98 100 11/24/20 21:00 Non-Rebreather 15.0 11/24/20 20:00 96.6 52 22 151/73 (99) 97 11/24/20 19:25 95 Nasal Cannula 5.0 40 11/24/20 16:00 97.3 53 24 136/71 (92) 95 11/24/20 12:00 96.6 56 24 135/69 (91) 88 Intake and Output 11/24/20 11/25/20 19:00 07:00 Intake Total 720 ml 600 ml Output Total 200 ml 350 ml Balance 520 ml 250 ml Intake Oral 720 ml IV Total 600 ml Output Urine Total 200 ml 350 ml # Voids 1 General Appearance: no acute distress HEENT: atraumatic Respiratory: lungs clear Cardiovascular: normal rate Abdomen: soft, non tender Laboratory Tests 11/24/20 12:07: POC Whole Blood Glucose 143H 11/24/20 16:24: POC Whole Blood Glucose 169H 11/24/20 21:17: POC Whole Blood Glucose [Pending] 11/25/20 05:40: White Blood Count 6.3, Red Blood Count 3.75L, Hemoglobin 12.8L, Hematocrit 35.0L , Mean Corpuscular Volume 93, Mean Corpuscular Hemoglobin 34.1H, Mean Corpuscular Hemoglobin Concent 36.5H, Red Cell Distribution Width 13.4, Platelet Count 163, Mean Platelet Volume 10.0, Neutrophils (%) (Auto) , Lymphocytes (%) (Auto) , Monocytes (%) (Auto) , Eosinophils (%) (Auto) , Basophils (%) (Auto) , Differential Total Cells Counted 100, Neutrophils % (Manual) 85H, Lymphocytes % (Manual) 11L, Monocytes % (Manual) 1, Eosinophils % (Manual) 0, Basophils % (Manual) 0, Band Neutrophils 3, Platelet Estimate Adequate, Platelet Morphology Normal, Red Blood Cell Morphology Normal, Sodium Level 138, Potassium Level 4.4, Chloride Level 106, Carbon Dioxide Level 24, Anion Gap 8, Blood Urea Nitrogen 31H, Creatinine 1.4H, Estimat Glomerular Filtration Rate 48.2, Glucose Level 180H, Calcium Level 8.0L Current Medications Medications (Trade) Dose Ordered Sig/Wilson Route PRN Reason Start Time Stop Time Status Last Admin Dose Admin Acetaminophen (Tylenol) 650 mg Q6H PRN ORAL Temp >100.5 11/20/20 04:30 12/20/20 04:29 11/23/20 23:57 Aspirin (ASA) 81 mg DAILY ORAL 11/21/20 09:00 01/05/21 08:59 11/25/20 08:16 Atorvastatin Calcium (Lipitor) 20 mg BEDTIME ORAL 11/20/20 21:00 02/18/21 20:59 11/24/20 21:09 Clonazepam (KlonoPIN) 0.5 mg HSPRN PRN ORAL For Anxiety 11/20/20 17:30 11/27/20 17:29 Dextrose (Dextrose 50%) 25 ml Q30M PRN IV Hypoglycemia 11/20/20 04:30 02/18/21 04:29 Dextrose (Dextrose 50%) 50 ml Q30M PRN IV Hypoglycemia 11/20/20 04:30 02/18/21 04:29 Docusate Sodium (Colace) 100 mg THREE TIMES A DAY ORAL 11/20/20 13:00 12/20/20 12:59 11/25/20 08:16 Guaifenesin/ Dextromethorphan (Robitussin DM Syrup) 15 ml Q6H PRN ORAL For Cough 11/24/20 06:45 02/22/21 06:44 Heparin Sodium (Porcine) (Heparin 5000 units/ml) 5,000 units EVERY 12 HOURS SUBQ 11/20/20 09:00 01/04/21 08:59 11/25/20 08:16 Insulin Aspart (NovoLOG) BEFORE MEALS AND HS SUBQ 11/20/20 06:30 02/18/21 06:29 11/25/20 05:26 Irbesartan (Avapro) 300 mg DAILY ORAL 11/21/20 09:00 02/19/21 08:59 11/25/20 08:15 Meclizine HCl (Antivert) 25 mg EVERY 8 HOURS ORAL 11/21/20 22:00 12/21/20 21:59 11/25/20 05:16 Meclizine HCl (Antivert) 25 mg Q8H PRN ORAL for dizziness 11/20/20 17:30 12/20/20 17:29 Methylprednisolone Sodium Succinate (Solu-MEDROL) 40 mg EVERY 12 HOURS IVP 11/24/20 11:30 02/22/21 11:29 11/25/20 08:18 Midodrine (Pro-Amatine) 5 mg THREE TIMES A DAY ORAL 11/20/20 20:00 02/18/21 19:59 11/25/20 08:17 Morphine Sulfate (Morphine Sulfate) 2 mg Q4H PRN IVP For Pain 11/20/20 04:30 11/27/20 04:29 Nebivolol (Bystolic) 2.5 mg DAILY ORAL 11/21/20 09:00 12/21/20 08:59 11/25/20 08:17 Pantoprazole (Protonix) 40 mg EVERY 12 HOURS ORAL 11/20/20 21:00 12/20/20 20:59 11/25/20 08:17 Patient Own Medication (Patient's Own Med) 1 ea DAILY ORAL 11/22/20 09:00 12/22/20 08:59 11/25/20 08:18 Patient Own Medication (Patient's Own Med) 1 ea DAILY ORAL 11/22/20 09:00 12/22/20 08:59 11/25/20 08:18 Ropinirole HCl (Requip) 1 mg DAILY ORAL 11/21/20 09:00 12/21/20 08:59 11/25/20 08:17 Sodium Chloride 1,000 ml @ 50 mls/hr Q20H IV 11/20/20 12:30 12/20/20 12:29 11/23/20 20:28 Tamsulosin HCl (Flomax) 0.4 mg TWICE A DAY ORAL 11/20/20 18:00 12/20/20 17:59 11/25/20 08:18 Vitamin D (Vitamin D) 5,000 unit DAILY ORAL 11/21/20 09:00 12/21/20 08:59 11/25/20 08:17 Assessment/Plan Assessment/Plan 1. COVID-19 pneumonia with history of fever (T-max= 101.5) -on 15L NRB saturating at 98%%; failed weaning yesterday with Venturi mask -Given x-ray findings and history of fever, we will continue broad-spectrum antibiotics for pneumonia coverage - s/p dexamethasone 2. Weakness - seen by PT 3. SOUMYA -IV fluids -Monitor renal parameters 4. Diabetes mellitus with hyperglycemia -On insulin 5. Elevated inflammatory markers -On heparin, given elevated BUN, Cr - Venous duplex negative for DVT - on heparin subQ q12h 6. Obstructive sleep apnea -Patient reports using CPAP at night at home -ordered CPAP at night with the setting of 12 - pt has been refusing CPAP because it's uncomfortable and drying his eyes - Continue NRB at night unless he feels comfortable using CPAP 10. New onset fever - Euhp=478.4; resolved - no leukocytosis - monitor The care for this patient was discussed with my supervising physician. Time spent for this case was approximately 31 minutes. Wm Marx Nov 25, 2020 10:58
--- NOTE | 2020-11-25 12:10 | Infectious Diseases Prog Note ---
Assessment/Plan Assessment/Plan A 1. COVID19 pneumonia 2. COPD 3. hyperlipidemia 4. BPH P 1.Received ivermectin x 1 dose 2. continue Solumedrol 3. continue isolation Subjective ROS Limited/Unobtainable: Yes Allergies: Coded Allergies: No Known Allergies (Unverified , 10/20/12) Objective Last 24 Hour Vital Signs Date Time Temp Pulse Resp B/P (MAP) Pulse Ox O2 Delivery O2 Flow Rate FiO2 11/25/20 09:00 Non-Rebreather 15.0 11/25/20 08:15 144/81 11/25/20 08:00 97.0 59 20 144/81 (102) 94 11/25/20 04:00 97.0 52 24 147/79 (101) 100 11/25/20 00:00 96.3 50 24 148/73 (98) 98 11/24/20 22:06 52 18 98 100 11/24/20 21:00 Non-Rebreather 15.0 11/24/20 20:00 96.6 52 22 151/73 (99) 97 11/24/20 19:25 95 Nasal Cannula 5.0 40 11/24/20 16:00 97.3 53 24 136/71 (92) 95 Height (Feet): 5 Height (Inches): 8.00 Weight (Pounds): 190 General Appearance: no acute distress HEENT: mucous membranes moist Respiratory/Chest: other - O2 by NRB mask, 15 L/min Cardiovascular: bradycardia Abdomen: soft, non tender Neurologic/Psychiatric: other - sleeping Laboratory Tests Test 11/24/20 16:24 11/24/20 21:17 11/25/20 05:40 POC Whole Blood Glucose 169 MG/DL (74-106) H Pending White Blood Count 6.3 K/UL (4.8-10.8) Red Blood Count 3.75 M/UL (4.70-6.10) L Hemoglobin 12.8 G/DL (14.2-18.0) L Hematocrit 35.0 % (42.0-52.0) L Mean Corpuscular Volume 93 FL (80-99) Mean Corpuscular Hemoglobin 34.1 PG (27.0-31.0) H Mean Corpuscular Hemoglobin Concent 36.5 G/DL (32.0-36.0) H Red Cell Distribution Width 13.4 % (11.6-14.8) Platelet Count 163 K/UL (150-450) Mean Platelet Volume 10.0 FL (6.5-10.1) Neutrophils (%) (Auto) % (45.0-75.0) Lymphocytes (%) (Auto) % (20.0-45.0) Monocytes (%) (Auto) % (1.0-10.0) Eosinophils (%) (Auto) % (0.0-3.0) Basophils (%) (Auto) % (0.0-2.0) Differential Total Cells Counted 100 Neutrophils % (Manual) 85 % (45-75) H Lymphocytes % (Manual) 11 % (20-45) L Monocytes % (Manual) 1 % (1-10) Eosinophils % (Manual) 0 % (0-3) Basophils % (Manual) 0 % (0-2) Band Neutrophils 3 % (0-8) Platelet Estimate Adequate Platelet Morphology Normal Red Blood Cell Morphology Normal Sodium Level 138 MMOL/L (136-145) Potassium Level 4.4 MMOL/L (3.5-5.1) Chloride Level 106 MMOL/L (98-107) Carbon Dioxide Level 24 MMOL/L (21-32) Anion Gap 8 mmol/L (5-15) Blood Urea Nitrogen 31 mg/dL (7-18) H Creatinine 1.4 MG/DL (0.55-1.30) H Estimat Glomerular Filtration Rate 48.2 mL/min (>60) Glucose Level 180 MG/DL (74-106) H Calcium Level 8.0 MG/DL (8.5-10.1) L Current Medications Medications (Trade) Dose Ordered Sig/Wilson Route PRN Reason Start Time Stop Time Status Last Admin Dose Admin Acetaminophen (Tylenol) 650 mg Q6H PRN ORAL Temp >100.5 11/20/20 04:30 12/20/20 04:29 11/23/20 23:57 Aspirin (ASA) 81 mg DAILY ORAL 11/21/20 09:00 01/05/21 08:59 11/25/20 08:16 Atorvastatin Calcium (Lipitor) 20 mg BEDTIME ORAL 11/20/20 21:00 02/18/21 20:59 11/24/20 21:09 Clonazepam (KlonoPIN) 0.5 mg HSPRN PRN ORAL For Anxiety 11/20/20 17:30 11/27/20 17:29 Dextrose (Dextrose 50%) 25 ml Q30M PRN IV Hypoglycemia 11/20/20 04:30 02/18/21 04:29 Dextrose (Dextrose 50%) 50 ml Q30M PRN IV Hypoglycemia 11/20/20 04:30 02/18/21 04:29 Docusate Sodium (Colace) 100 mg THREE TIMES A DAY ORAL 11/20/20 13:00 12/20/20 12:59 11/25/20 12:07 Guaifenesin/ Dextromethorphan (Robitussin DM Syrup) 15 ml Q6H PRN ORAL For Cough 11/24/20 06:45 02/22/21 06:44 Heparin Sodium (Porcine) (Heparin 5000 units/ml) 5,000 units EVERY 12 HOURS SUBQ 11/20/20 09:00 01/04/21 08:59 11/25/20 08:16 Insulin Aspart (NovoLOG) BEFORE MEALS AND HS SUBQ 11/20/20 06:30 02/18/21 06:29 11/25/20 05:26 Irbesartan (Avapro) 300 mg DAILY ORAL 11/21/20 09:00 02/19/21 08:59 11/25/20 08:15 Meclizine HCl (Antivert) 25 mg EVERY 8 HOURS ORAL 11/21/20 22:00 12/21/20 21:59 11/25/20 05:16 Meclizine HCl (Antivert) 25 mg Q8H PRN ORAL for dizziness 11/20/20 17:30 12/20/20 17:29 Methylprednisolone Sodium Succinate (Solu-MEDROL) 40 mg EVERY 12 HOURS IVP 11/24/20 11:30 02/22/21 11:29 11/25/20 08:18 Midodrine (Pro-Amatine) 5 mg THREE TIMES A DAY ORAL 11/20/20 20:00 02/18/21 19:59 11/25/20 12:07 Morphine Sulfate (Morphine Sulfate) 2 mg Q4H PRN IVP For Pain 11/20/20 04:30 11/27/20 04:29 Nebivolol (Bystolic) 2.5 mg DAILY ORAL 11/21/20 09:00 12/21/20 08:59 11/25/20 08:17 Pantoprazole (Protonix) 40 mg EVERY 12 HOURS ORAL 11/20/20 21:00 12/20/20 20:59 11/25/20 08:17 Patient Own Medication (Patient's Own Med) 1 ea DAILY ORAL 11/22/20 09:00 12/22/20 08:59 11/25/20 08:18 Patient Own Medication (Patient's Own Med) 1 ea DAILY ORAL 11/22/20 09:00 12/22/20 08:59 11/25/20 08:18 Ropinirole HCl (Requip) 1 mg DAILY ORAL 11/21/20 09:00 12/21/20 08:59 11/25/20 08:17 Sodium Chloride 1,000 ml @ 50 mls/hr Q20H IV 11/20/20 12:30 12/20/20 12:29 11/25/20 12:07 Tamsulosin HCl (Flomax) 0.4 mg TWICE A DAY ORAL 11/20/20 18:00 12/20/20 17:59 11/25/20 08:18 Vitamin D (Vitamin D) 5,000 unit DAILY ORAL 11/21/20 09:00 12/21/20 08:59 11/25/20 08:17 Fawad Talbot MD Nov 25, 2020 12:10
--- NOTE | 2020-11-25 14:10 | General Progress Note ---
Subjective Constitutional: Reports: weakness Allergies: Coded Allergies: No Known Allergies (Unverified , 10/20/12) Subjective o2nc calm in bed Objective Last 24 Hour Vital Signs Date Time Temp Pulse Resp B/P (MAP) Pulse Ox O2 Delivery O2 Flow Rate FiO2 11/25/20 12:00 98.4 62 18 137/76 (96) 95 11/25/20 09:00 Non-Rebreather 15.0 11/25/20 08:15 144/81 11/25/20 08:00 97.0 59 20 144/81 (102) 94 11/25/20 04:00 97.0 52 24 147/79 (101) 100 11/25/20 00:00 96.3 50 24 148/73 (98) 98 11/24/20 22:06 52 18 98 100 11/24/20 21:00 Non-Rebreather 15.0 11/24/20 20:00 96.6 52 22 151/73 (99) 97 11/24/20 19:25 95 Nasal Cannula 5.0 40 11/24/20 16:00 97.3 53 24 136/71 (92) 95 Intake and Output 11/24/20 11/25/20 19:00 07:00 Intake Total 720 ml 600 ml Output Total 200 ml 350 ml Balance 520 ml 250 ml Intake Oral 720 ml IV Total 600 ml Output Urine Total 200 ml 350 ml # Voids 1 Laboratory Tests 11/24/20 16:24: POC Whole Blood Glucose 169H 11/24/20 21:17: POC Whole Blood Glucose [Pending] 11/25/20 05:40: White Blood Count 6.3, Red Blood Count 3.75L, Hemoglobin 12.8L, Hematocrit 35.0L , Mean Corpuscular Volume 93, Mean Corpuscular Hemoglobin 34.1H, Mean Corpusc ular Hemoglobin Concent 36.5H, Red Cell Distribution Width 13.4, Platelet Count 163, Mean Platelet Volume 10.0, Neutrophils (%) (Auto) , Lymphocytes (%) (Auto) , Monocytes (%) (Auto) , Eosinophils (%) (Auto) , Basophils (%) (Auto) , Differential Total Cells Counted 100, Neutrophils % (Manual) 85H, Lymphocytes % (Manual) 11L, Monocytes % (Manual) 1, Eosinophils % (Manual) 0, Basophils % (Manual) 0, Band Neutrophils 3, Platelet Estimate Adequate, Platelet Morphology Normal, Red Blood Cell Morphology Normal, Sodium Level 138, Potassium Level 4.4, Chloride Level 106, Carbon Dioxide Level 24, Anion Gap 8, Blood Urea Nitrogen 31H, Creatinine 1.4H, Estimat Glomerular Filtration Rate 48.2, Glucose Level 180H, Calcium Level 8.0L Height (Feet): 5 Height (Inches): 8.00 Weight (Pounds): 190 General Appearance: lethargic EENT: normal ENT inspection Neck: normal alignment Cardiovascular: normal peripheral pulses, normal rate, regular rhythm Respiratory/Chest: chest wall non-tender, lungs clear, normal breath sounds Abdomen: normal bowel sounds, non tender, soft Extremities: normal inspection Edema: no edema noted Arm (L), no edema noted Arm (R), no edema noted Leg (L), no edema noted Leg (R), no edema noted Pedal (L), no edema noted Pedal (R), no edema noted Generalized Neurologic: motor weakness Skin: normal pigmentation, warm/dry Assessment/Plan Problem List: (1) HTN (hypertension) ICD Codes: I10 - Essential (primary) hypertension SNOMED: 95244734 (2) Diabetes ICD Codes: E11.9 - Type 2 diabetes mellitus without complications SNOMED: 80323274 (3) Weak ICD Codes: R53.1 - Weakness SNOMED: 20397639 (4) Fever ICD Codes: R50.9 - Fever, unspecified SNOMED: 460529380 (5) COVID-19 ICD Codes: U07.1 - COVID-19 SNOMED: 418109207 (6) Renal failure ICD Codes: N19 - Unspecified kidney failure SNOMED: 58401409 (7) Pneumonia ICD Codes: J18.9 - Pneumonia, unspecified organism SNOMED: 838478941 (8) Dehydration ICD Codes: E86.0 - Dehydration SNOMED: 86017647 (9) CVA (cerebral infarction) ICD Codes: I63.9 - CVA (cerebral infarction) SNOMED: 881435917 Status: unchanged Assessment/Plan: o2 pulm tx abx bp bs control cbc bmp am Ziggy Carlson DO Nov 25, 2020 14:10
--- NOTE | 2020-11-25 18:22 | NUR ---
NURSE HAND-OFF: Important Events on Shift:Order recived for Non-Rebrether mask 15 Liter, Accuchek Patient Status: Diet: Pending Orders: Pending Results/Labs: Pending MD notification: Latest Vital Signs: Temperature 97.3 , Pulse 57 , B/P 114 /73 , Respiratory Rate 19 , O2 SAT 95 , Room Air, O2 Flow Rate 15.0 . Vital Sign Comment: Latest Delarosa Fall Score: 45 Fall Risk: High Risk Safety Measures: Call light Within Reach, Bed Alarm Zone 1, Side Rails Side Rails x2, Bed position Low and Locked. Fall Precautions: Door Sign Patient Fall Education Report given to .
--- NOTE | 2020-11-25 19:20 | NUR ---
NURSE HAND-OFF: Important Events on Shift: Patient Status: Diet: Pending Orders: Pending Results/Labs: Pending MD notification: Latest Vital Signs: Temperature 97.3 , Pulse 57 , B/P 114 /73 , Respiratory Rate 19 , O2 SAT 95 , Room Air, O2 Flow Rate 5.0 . Vital Sign Comment: Latest Delarosa Fall Score: 45 Fall Risk: High Risk Safety Measures: Call light Within Reach, Bed Alarm Zone 1, Side Rails Side Rails x2, Bed position Low and Locked. Fall Precautions: Door Sign Patient Fall Education Report given to .
--- NOTE | 2020-11-25 20:00 | NUR ---
NURSE NOTES: Patient in bed, awake, alert and able to make needs known. Respiration is even, on non-rebreather 15 L. saturation 97%. Educated to keep the mask on. Skin is warm and dry to touch. Abdomen is soft and non distended. Iv site, iv fluid is infusing as ordered. Bed in low and locked position. Provided safe environment. Call light is at bedside. Will continue plan of care.
[2020-11-25] MEDS: Atorvastatin 20mg tab ORAL SCH (21:11)
--- NOTE | 2020-11-26 00:13 | NUR ---
NURSE NOTES: Patient in bed. Educated patient regarding non-rebreather mask to be used. Take it off and O2 saturation decreases. Refuses Cpap, so informed him of the alternative. Will follow up and frequent visual checks to be done.
[2020-11-26 04:00] VITALS: BP 135/74
[2020-11-26] MEDS: Meclizine 25mg tab ORAL SCH ×3 (05:49→21:51)
[2020-11-26] MEDS: NovoLOG Insulin Flexpen SUBQ SCH ×4 (06:04→20:02)
--- NOTE | 2020-11-26 06:18 | Hematology/Onc Progress Note ---
Assessment/Plan Assessment/Plan Assessment and Recs # Thrombocytopenia likely related to underlying covid19++++++ --> smear reviewed, no blasts --> hep and hiv as needed --> supportive care for now --> transfuse prn basis --> ABX --> plt 144-->160 # Anemia of chronic disease --> trend hgb 12 --> no hemolysis # COVID-19 --> per pulm and id recs --> abx ctx/azithro # Elevated ddimer poa --> duplex legs-->neg # Pneumonia --> as above # Renal failure --> ivfs # Dehydration --> goal euvolemia # Lactic acidosis # Dvt ppx heparin sq Appreciate consultation and appreciate consultation Subjective Allergies: Coded Allergies: No Known Allergies (Unverified , 10/20/12) All Systems: reviewed and negative except above Subjective 11/24 on 5l oxygen, no bleeding, says is more comfortable, but not fully at baseline 11/25 nonrebreather, labs noted, no bleeding, ene rn, on steriods 11/26 nonrebreather, has been refusing cpap, have ordered for labs in am Objective Objective Current Medications Medications (Trade) Dose Ordered Sig/Wilson Route PRN Reason Start Time Stop Time Status Last Admin Dose Admin Acetaminophen (Tylenol) 650 mg Q6H PRN ORAL Temp >100.5 11/20/20 04:30 12/20/20 04:29 11/23/20 23:57 Aspirin (ASA) 81 mg DAILY ORAL 11/21/20 09:00 01/05/21 08:59 11/25/20 08:16 Atorvastatin Calcium (Lipitor) 20 mg BEDTIME ORAL 11/20/20 21:00 02/18/21 20:59 11/25/20 21:11 Clonazepam (KlonoPIN) 0.5 mg HSPRN PRN ORAL For Anxiety 11/20/20 17:30 11/27/20 17:29 Dextrose (Dextrose 50%) 25 ml Q30M PRN IV Hypoglycemia 11/20/20 04:30 02/18/21 04:29 Dextrose (Dextrose 50%) 50 ml Q30M PRN IV Hypoglycemia 11/20/20 04:30 02/18/21 04:29 Docusate Sodium (Colace) 100 mg THREE TIMES A DAY ORAL 11/20/20 13:00 12/20/20 12:59 11/25/20 17:01 Guaifenesin/ Dextromethorphan (Robitussin DM Syrup) 15 ml Q6H PRN ORAL For Cough 11/24/20 06:45 02/22/21 06:44 Heparin Sodium (Porcine) (Heparin 5000 units/ml) 5,000 units EVERY 12 HOURS SUBQ 11/20/20 09:00 01/04/21 08:59 11/25/20 21:24 Insulin Aspart (NovoLOG) BEFORE MEALS AND HS SUBQ 11/20/20 06:30 02/18/21 06:29 11/26/20 06:04 Irbesartan (Avapro) 300 mg DAILY ORAL 11/21/20 09:00 02/19/21 08:59 11/25/20 08:15 Meclizine HCl (Antivert) 25 mg EVERY 8 HOURS ORAL 11/21/20 22:00 12/21/20 21:59 11/26/20 05:49 Meclizine HCl (Antivert) 25 mg Q8H PRN ORAL for dizziness 11/20/20 17:30 12/20/20 17:29 Methylprednisolone Sodium Succinate (Solu-MEDROL) 40 mg EVERY 12 HOURS IVP 11/24/20 11:30 02/22/21 11:29 11/25/20 21:10 Midodrine (Pro-Amatine) 5 mg THREE TIMES A DAY ORAL 11/20/20 20:00 02/18/21 19:59 11/25/20 17:02 Morphine Sulfate (Morphine Sulfate) 2 mg Q4H PRN IVP For Pain 11/20/20 04:30 11/27/20 04:29 Nebivolol (Bystolic) 2.5 mg DAILY ORAL 11/21/20 09:00 12/21/20 08:59 11/25/20 08:17 Pantoprazole (Protonix) 40 mg EVERY 12 HOURS ORAL 11/20/20 21:00 12/20/20 20:59 11/25/20 21:10 Patient Own Medication (Patient's Own Med) 1 ea DAILY ORAL 11/22/20 09:00 12/22/20 08:59 11/25/20 08:18 Patient Own Medication (Patient's Own Med) 1 ea DAILY ORAL 11/22/20 09:00 12/22/20 08:59 11/25/20 08:18 Ropinirole HCl (Requip) 1 mg DAILY ORAL 11/21/20 09:00 12/21/20 08:59 11/25/20 08:17 Sodium Chloride 1,000 ml @ 50 mls/hr Q20H IV 11/20/20 12:30 12/20/20 12:29 11/26/20 06:05 Tamsulosin HCl (Flomax) 0.4 mg TWICE A DAY ORAL 11/20/20 18:00 12/20/20 17:59 11/25/20 17:01 Vitamin D (Vitamin D) 5,000 unit DAILY ORAL 11/21/20 09:00 12/21/20 08:59 11/25/20 08:17 Last 24 Hour Vital Signs Date Time Temp Pulse Resp B/P (MAP) Pulse Ox O2 Delivery O2 Flow Rate FiO2 11/26/20 04:00 97.9 65 18 135/74 (94) 94 11/25/20 23:35 98.1 60 18 138/75 (96) 94 11/25/20 21:00 Non-Rebreather 15.0 11/25/20 19:56 97.5 56 18 136/72 (93) 97 11/25/20 19:35 97 Non-Rebreather 15.0 100 11/25/20 16:00 97.3 57 19 114/73 (87) 95 11/25/20 12:00 98.4 62 18 137/76 (96) 95 11/25/20 09:59 96 Nasal Cannula 5.0 40 11/25/20 09:00 Non-Rebreather 15.0 11/25/20 08:15 144/81 11/25/20 08:00 97.0 59 20 144/81 (102) 94 11/25/20 04:00 97.0 52 24 147/79 (101) 100 11/25/20 00:00 96.3 50 24 148/73 (98) 98 11/24/20 22:06 52 18 98 100 11/24/20 21:00 Non-Rebreather 15.0 11/24/20 20:00 96.6 52 22 151/73 (99) 97 11/24/20 19:25 95 Nasal Cannula 5.0 40 11/24/20 16:00 97.3 53 24 136/71 (92) 95 11/24/20 12:00 96.6 56 24 135/69 (91) 88 11/24/20 09:33 122/67 11/24/20 09:00 Non-Rebreather 5.0 11/24/20 08:22 95 Nasal Cannula 5.0 40 11/24/20 08:00 97.0 63 24 122/67 (85) 88 Intake and Output 11/25/20 11/26/20 19:00 07:00 Intake Total 1150 ml 1000 ml Output Total 1000 ml Balance 1150 ml 0 ml Intake Oral 750 ml IV Total 550 ml 250 ml Other 600 ml Output Urine Total 1000 ml # Voids 3 Labs Test 11/23/20 11:28 11/23/20 16:47 11/24/20 05:15 11/24/20 12:07 POC Whole Blood Glucose 182 MG/DL (74-106) 216 MG/DL (74-106) 143 MG/DL (74-106) White Blood Count 8.8 K/UL (4.8-10.8) Red Blood Count 3.79 M/UL (4.70-6.10) Hemoglobin 12.1 G/DL (14.2-18.0) Hematocrit 35.1 % (42.0-52.0) Mean Corpuscular Volume 93 FL (80-99) Mean Corpuscular Hemoglobin 31.8 PG (27.0-31.0) Mean Corpuscular Hemoglobin Concent 34.4 G/DL (32.0-36.0) Red Cell Distribution Width 12.9 % (11.6-14.8) Platelet Count 144 K/UL (150-450) Mean Platelet Volume 10.0 FL (6.5-10.1) Neutrophils (%) (Auto) % (45.0-75.0) Lymphocytes (%) (Auto) % (20.0-45.0) Monocytes (%) (Auto) % (1.0-10.0) Eosinophils (%) (Auto) % (0.0-3.0) Basophils (%) (Auto) % (0.0-2.0) Differential Total Cells Counted 100 Neutrophils % (Manual) 84 % (45-75) Lymphocytes % (Manual) 12 % (20-45) Monocytes % (Manual) 4 % (1-10) Eosinophils % (Manual) 0 % (0-3) Basophils % (Manual) 0 % (0-2) Band Neutrophils 0 % (0-8) Platelet Estimate Adequate Platelet Morphology Normal Red Blood Cell Morphology Normal Sodium Level 137 MMOL/L (136-145) Potassium Level 4.1 MMOL/L (3.5-5.1) Chloride Level 106 MMOL/L (98-107) Carbon Dioxide Level 20 MMOL/L (21-32) Anion Gap 11 mmol/L (5-15) Blood Urea Nitrogen 32 mg/dL (7-18) Creatinine 1.5 MG/DL (0.55-1.30) Estimat Glomerular Filtration Rate 44.5 mL/min (>60) Glucose Level 139 MG/DL (74-106) Calcium Level 8.2 MG/DL (8.5-10.1) Phosphorus Level 2.4 MG/DL (2.5-4.9) Magnesium Level 2.6 MG/DL (1.8-2.4) Total Bilirubin 0.6 MG/DL (0.2-1.0) Direct Bilirubin 0.3 MG/DL (0.0-0.3) Aspartate Amino Transf (AST/SGOT) 103 U/L (15-37) Alanine Aminotransferase (ALT/SGPT) 53 U/L (12-78) Alkaline Phosphatase 50 U/L (46-116) Total Protein 5.5 G/DL (6.4-8.2) Albumin 2.1 G/DL (3.4-5.0) Test 11/24/20 16:24 11/24/20 21:17 11/25/20 05:40 11/25/20 16:59 POC Whole Blood Glucose 169 MG/DL (74-106) White Blood Count 6.3 K/UL (4.8-10.8) Red Blood Count 3.75 M/UL (4.70-6.10) Hemoglobin 12.8 G/DL (14.2-18.0) Hematocrit 35.0 % (42.0-52.0) Mean Corpuscular Volume 93 FL (80-99) Mean Corpuscular Hemoglobin 34.1 PG (27.0-31.0) Mean Corpuscular Hemoglobin Concent 36.5 G/DL (32.0-36.0) Red Cell Distribution Width 13.4 % (11.6-14.8) Platelet Count 163 K/UL (150-450) Mean Platelet Volume 10.0 FL (6.5-10.1) Neutrophils (%) (Auto) % (45.0-75.0) Lymphocytes (%) (Auto) % (20.0-45.0) Monocytes (%) (Auto) % (1.0-10.0) Eosinophils (%) (Auto) % (0.0-3.0) Basophils (%) (Auto) % (0.0-2.0) Differential Total Cells Counted 100 Neutrophils % (Manual) 85 % (45-75) Lymphocytes % (Manual) 11 % (20-45) Monocytes % (Manual) 1 % (1-10) Eosinophils % (Manual) 0 % (0-3) Basophils % (Manual) 0 % (0-2) Band Neutrophils 3 % (0-8) Platelet Estimate Adequate Platelet Morphology Normal Red Blood Cell Morphology Normal Sodium Level 138 MMOL/L (136-145) Potassium Level 4.4 MMOL/L (3.5-5.1) Chloride Level 106 MMOL/L (98-107) Carbon Dioxide Level 24 MMOL/L (21-32) Anion Gap 8 mmol/L (5-15) Blood Urea Nitrogen 31 mg/dL (7-18) Creatinine 1.4 MG/DL (0.55-1.30) Estimat Glomerular Filtration Rate 48.2 mL/min (>60) Glucose Level 180 MG/DL (74-106) Calcium Level 8.0 MG/DL (8.5-10.1) Height (Feet): 5 Height (Inches): 8.00 Weight (Pounds): 190 Objective Physical Exam Sp02 EP Interpretation: reviewed, normal General: no apparent distress, alert, GCS 15, non-toxic Heent: hearing grossly normal, normal pharynx, no angioedema, normal voice Neck: full range of motion, supple/symm/no masses Respiratory: chest non-tender, lungs clear, normal breath sounds Cardiovasc: regular rate, rhythm, no edema Gastrointestinal: normal bowel sounds, non tender, soft, non-distended, no guarding, no rebound Rectal: deferred Musculoskeletal: back normal, normal range of motion Neurologic: alert, motor strength/tone normal Psychiatric: judgement/insight normal, memory normal Skin: no rash, normal color Gabriel Orozco MD Nov 26, 2020 06:18
--- NOTE | 2020-11-26 07:08 | NUR ---
NURSE HAND-OFF: Important Events on Shift:Educate use of Bipap and Non rebreather mask Patient Status: Diet: Pending Orders: Pending Results/Labs: Pending MD notification: Latest Vital Signs: Temperature 97.9 , Pulse 65 , B/P 135 /74 , Respiratory Rate 18 , O2 SAT 94 , Room Air, O2 Flow Rate 15.0 . Vital Sign Comment: Latest Delarosa Fall Score: 45 Fall Risk: High Risk Safety Measures: Call light Within Reach, Bed Alarm Zone 1, Side Rails Side Rails x2, Bed position Low and Locked. Fall Precautions: Door Sign Patient Fall Education Report given to .
--- NOTE | 2020-11-26 07:10 | NUR ---
NURSE NOTES: Patient awake, on phone talking to family members; on Non-Rebreather at 15 Liters, no sing of distress and shortness of breather; IV Left For-Arm 22G NS 150cc; side rails up x2, breaks engaged, bed alarm on, bed at lowest position; call light within reach; Urinal within reach; patient encouraged to call for help; will keep monitoring patient saturation, will check blood sugar and carry out the plan of care.
[2020-11-26 08:00] VITALS: BP 156/119
[2020-11-26] MEDS: Heparin 5000 units/ml inj SUBQ SCH ×2 (08:16→20:03)
[2020-11-26] MEDS: Aspirin Baby 81mg ORAL SCH (08:17)
[2020-11-26] MEDS: Vitamin D 1000 units Tab ORAL SCH (08:18)
[2020-11-26] MEDS: Docusate 100mg cap ORAL SCH ×3 (08:18→17:15)
[2020-11-26] MEDS: Tamsulosin 0.4mg cap ORAL SCH ×2 (08:18→17:15)
[2020-11-26] MEDS: Irbesartan 150mg tablet ORAL SCH (08:18)
[2020-11-26] MEDS: Bystolic 2.5mg Tab ORAL SCH ×2 (08:19→12:13)
[2020-11-26] MEDS: Solu-MEDROL 40mg Inj IVP SCH ×2 (08:19→20:01)
[2020-11-26] MEDS: TRADJENTA 5 MG ORAL SCH (08:31)
--- NOTE | 2020-11-26 08:40 | NUR ---
CHARGE NURSE NOTE: BP 156/119, DR Carlson, notified. Pt on Midodrin, asked Drs to stop it.
[2020-11-26 09:01] LABS: HEMATOCRIT 34.8 % (42.0-52.0); HEMOGLOBIN 12.6 G/DL (14.2-18.0); MEAN CORPUSCULAR VOLUME 94 FL (80-99); PLATELET COUNT 206 K/UL (150-450); RED BLOOD COUNT 3.69 M/UL (4.70-6.10); WHITE BLOOD COUNT 9.1 K/UL (4.8-10.8)
--- NOTE | 2020-11-26 09:16 | General Progress Note ---
Subjective Constitutional: Reports: weakness Allergies: Coded Allergies: No Known Allergies (Unverified , 10/20/12) All Systems: reviewed and negative except above Subjective o2 mask calm in bed Objective Last 24 Hour Vital Signs Date Time Temp Pulse Resp B/P (MAP) Pulse Ox O2 Delivery O2 Flow Rate FiO2 11/26/20 09:00 Non-Rebreather 15.0 11/26/20 08:18 156/119 11/26/20 08:00 97.0 54 18 156/119 (131) 95 11/26/20 04:00 97.9 65 18 135/74 (94) 94 11/25/20 23:35 98.1 60 18 138/75 (96) 94 11/25/20 21:00 Non-Rebreather 15.0 11/25/20 19:56 97.5 56 18 136/72 (93) 97 11/25/20 19:35 97 Non-Rebreather 15.0 100 11/25/20 16:00 97.3 57 19 114/73 (87) 95 11/25/20 12:00 98.4 62 18 137/76 (96) 95 11/25/20 09:59 96 Nasal Cannula 5.0 40 Intake and Output 11/25/20 11/26/20 19:00 07:00 Intake Total 1150 ml 1350 ml Output Total 1000 ml Balance 1150 ml 350 ml Intake Oral 750 ml IV Total 550 ml 600 ml Other 600 ml Output Urine Total 1000 ml # Voids 3 Laboratory Tests 11/25/20 16:59: POC Whole Blood Glucose [Pending] 11/26/20 07:45: White Blood Count 9.1, Red Blood Count 3.69L, Hemoglobin 12.6L, Hematocrit 34.8L , Mean Corpuscular Volume 94, Mean Corpuscular Hemoglobin 34.3H, Mean Corpuscular Hemoglobin Concent 36.3H, Red Cell Distribution Width 14.0, Platelet Count 206, Mean Platelet Volume 9.3, Neutrophils (%) (Auto) , Lymphocytes (%) (Auto) , Monocytes (%) (Auto) , Eosinophils (%) (Auto) , Basophils (%) (Auto) , Neutrophils % (Manual) [Pending], Lymphocytes % (Manual) [Pending], Platelet Estimate [Pending], Platelet Morphology [Pending], Sodium Level [Pending], Potassium Level [Pending], Chloride Level [Pending], Carbon Dioxide Level [Pending], Blood Urea Nitrogen [Pending], Creatinine [Pending], Estimat Glomerular Filtration Rate [Pending], Glucose Level [Pending], Calcium Level [Pending] Height (Feet): 5 Height (Inches): 8.00 Weight (Pounds): 190 General Appearance: lethargic EENT: normal ENT inspection Neck: normal alignment Cardiovascular: normal peripheral pulses, normal rate, regular rhythm Respiratory/Chest: chest wall non-tender, lungs clear, normal breath sounds Abdomen: normal bowel sounds, non tender, soft Extremities: normal inspection Edema: no edema noted Arm (L), no edema noted Arm (R), no edema noted Leg (L), no edema noted Leg (R), no edema noted Pedal (L), no edema noted Pedal (R), no edema noted Generalized Neurologic: motor weakness Skin: normal pigmentation, warm/dry Assessment/Plan Problem List: (1) HTN (hypertension) ICD Codes: I10 - Essential (primary) hypertension SNOMED: 45862825 (2) Diabetes ICD Codes: E11.9 - Type 2 diabetes mellitus without complications SNOMED: 36408654 (3) Weak ICD Codes: R53.1 - Weakness SNOMED: 09919484 (4) Fever ICD Codes: R50.9 - Fever, unspecified SNOMED: 924359523 (5) COVID-19 ICD Codes: U07.1 - COVID-19 SNOMED: 733492892 (6) Renal failure ICD Codes: N19 - Unspecified kidney failure SNOMED: 11266862 (7) Pneumonia ICD Codes: J18.9 - Pneumonia, unspecified organism SNOMED: 062276860 (8) Dehydration ICD Codes: E86.0 - Dehydration SNOMED: 51126634 (9) CVA (cerebral infarction) ICD Codes: I63.9 - CVA (cerebral infarction) SNOMED: 053205899 Status: unchanged Assessment/Plan: o2 pulm tx abx bp bs control cbc bmp am Ziggy Carlson DO Nov 26, 2020 09:16
--- NOTE | 2020-11-26 09:24 | NUR ---
CHARGE NURSE NOTE: asked to notify about BP 156/119. notified.
[2020-11-26 10:11] LABS: CALCIUM 8.2 MG/DL (8.5-10.1); CREATININE 1.2 MG/DL (0.55-1.30); POTASSIUM 4.1 MMOL/L (3.5-5.1)
--- NOTE | 2020-11-26 10:22 | Nephrology Progress Note ---
Assessment/Plan Problem List: (1) Renal failure (ARF), acute on chronic (2) Dehydration (3) COVID-19 (4) Lactic acidosis Assessment Renal failure, acute Possible underlying chronic kidney disease Dehydration COVID-19 infection, pneumonia Lactic acidosis 3+ proteinuria, hematuria with too many RBCs in the urine Plan November 26: Labs reviewed. Serum creatinine 1.2. IV fluids stopped. Midodrine stopped. Continue per consultants. November 25: Labs reviewed. Serum creatinine 1.4. Clinically stable. Continue per consultants. November 24: Labs reviewed. Serum creatinine 1.5. Clinically stable. Continue per consultants. November 23: Labs reviewed. Serum creatinine 1.8. Electrolytes stable. Continue as is. November 22: Labs reviewed. Serum creatinine 1.7. Serum sodium 135. Bolus of 500 cc normal saline given. Continue per consultants. November 21: Labs reviewed. Serum creatinine 1.8. Low phosphorus addressed. Patient full code. Continue per consultants. Previously: Slow hydration Monitor renal parameters Monitor electrolytes Keep the blood pressure blood sugar in check Antibiotics per ID Avoid nephrotoxic's Per orders Subjective ROS Limited/Unobtainable: No Constitutional: Reports: malaise, weakness Objective Objective Last 24 Hour Vital Signs Date Time Temp Pulse Resp B/P (MAP) Pulse Ox O2 Delivery O2 Flow Rate FiO2 11/26/20 09:00 Non-Rebreather 15.0 11/26/20 08:18 156/119 11/26/20 08:00 97.0 54 18 156/119 (131) 95 11/26/20 04:00 97.9 65 18 135/74 (94) 94 11/25/20 23:35 98.1 60 18 138/75 (96) 94 11/25/20 21:00 Non-Rebreather 15.0 11/25/20 19:56 97.5 56 18 136/72 (93) 97 11/25/20 19:35 97 Non-Rebreather 15.0 100 11/25/20 16:00 97.3 57 19 114/73 (87) 95 11/25/20 12:00 98.4 62 18 137/76 (96) 95 Intake and Output0 11/25/20 11/26/20 19:00 07:00 Intake Total 1150 ml 1350 ml Output Total 1000 ml Balance 1150 ml 350 ml Intake Oral 750 ml IV Total 550 ml 600 ml Other 600 ml Output Urine Total 1000 ml # Voids 3 Laboratory Tests 11/25/20 16:59: POC Whole Blood Glucose [Pending] 11/26/20 07:45: White Blood Count 9.1, Red Blood Count 3.69L, Hemoglobin 12.6L, Hematocrit 34.8L , Mean Corpuscular Volume 94, Mean Corpuscular Hemoglobin 34.3H, Mean Corpuscular Hemoglobin Concent 36.3H, Red Cell Distribution Width 14.0, Platelet Count 206, Mean Platelet Volume 9.3, Neutrophils (%) (Auto) , Lymphocytes (%) (Auto) , Monocytes (%) (Auto) , Eosinophils (%) (Auto) , Basophils (%) (Auto) , Differential Total Cells Counted 100, Neutrophils % (Manual) 88H, Lymphocytes % (Manual) 9L, Monocytes % (Manual) 3, Eosinophils % (Manual) 0, Basophils % (Manual) 0, Band Neutrophils 0, Platelet Estimate Adequate, Platelet Morphology Normal, Hypochromasia 1+, Anisocytosis 1+, Sodium Level 139, Potassium Level 4.1, Chloride Level 106, Carbon Dioxide Level 27, Anion Gap 6, Blood Urea Nitrogen 26H, Creatinine 1.2, Estimat Glomerular Filtration Rate 57.5, Glucose Level 154H, Calcium Level 8.2L Height (Feet): 5 Height (Inches): 8.00 Weight (Pounds): 190 General Appearance: no apparent distress, lethargic Cardiovascular: normal rate Respiratory/Chest: decreased breath sounds Abdomen: distended Ac Castro MD Nov 26, 2020 10:22
--- NOTE | 2020-11-26 10:58 | Pulmonology Progress Note ---
Subjective ROS Limited/Unobtainable: No Interval Events: none major reported per nursing Constitutional: Denies: fever HEENT: Repors: no symptoms Respiratory: Reports: shortness of breath Cardiovascular: Reports: no symptoms Gastrointestinal/Abdominal: Reports: no symptoms Allergies: Coded Allergies: No Known Allergies (Unverified , 10/20/12) All Systems: reviewed and negative except above Objective Last 24 Hour Vital Signs Date Time Temp Pulse Resp B/P (MAP) Pulse Ox O2 Delivery O2 Flow Rate FiO2 11/26/20 09:00 Non-Rebreather 15.0 11/26/20 08:18 156/119 11/26/20 08:00 97.0 54 18 156/119 (131) 95 11/26/20 04:00 97.9 65 18 135/74 (94) 94 11/25/20 23:35 98.1 60 18 138/75 (96) 94 11/25/20 21:00 Non-Rebreather 15.0 11/25/20 19:56 97.5 56 18 136/72 (93) 97 11/25/20 19:35 97 Non-Rebreather 15.0 100 11/25/20 16:00 97.3 57 19 114/73 (87) 95 11/25/20 12:00 98.4 62 18 137/76 (96) 95 Intake and Output 11/25/20 11/26/20 19:00 07:00 Intake Total 1150 ml 1350 ml Output Total 1000 ml Balance 1150 ml 350 ml Intake Oral 750 ml IV Total 550 ml 600 ml Other 600 ml Output Urine Total 1000 ml # Voids 3 General Appearance: no acute distress HEENT: atraumatic Respiratory: lungs clear Cardiovascular: normal rate Abdomen: soft, non tender Laboratory Tests 11/25/20 16:59: POC Whole Blood Glucose [Pending] 11/26/20 07:45: White Blood Count 9.1, Red Blood Count 3.69L, Hemoglobin 12.6L, Hematocrit 34.8L , Mean Corpuscular Volume 94, Mean Corpuscular Hemoglobin 34.3H, Mean Corpuscular Hemoglobin Concent 36.3H, Red Cell Distribution Width 14.0, Platelet Count 206, Mean Platelet Volume 9.3, Neutrophils (%) (Auto) , Lymphocytes (%) (Auto) , Monocytes (%) (Auto) , Eosinophils (%) (Auto) , Basophils (%) (Auto) , Differential Total Cells Counted 100, Neutrophils % (Manual) 88H, Lymphocytes % (Manual) 9L, Monocytes % (Manual) 3, Eosinophils % (Manual) 0, Basophils % (Manual) 0, Band Neutrophils 0, Platelet Estimate Adequate, Platelet Morphology Normal, Hypochromasia 1+, Anisocytosis 1+, Sodium Level 139, Potassium Level 4.1, Chloride Level 106, Carbon Dioxide Level 27, Anion Gap 6, Blood Urea Nitrogen 26H, Creatinine 1.2, Estimat Glomerular Filtration Rate 57.5, Glucose Level 154H, Calcium Level 8.2L Current Medications Medications (Trade) Dose Ordered Sig/Wilson Route PRN Reason Start Time Stop Time Status Last Admin Dose Admin Acetaminophen (Tylenol) 650 mg Q6H PRN ORAL Temp >100.5 11/20/20 04:30 12/20/20 04:29 11/23/20 23:57 Aspirin (ASA) 81 mg DAILY ORAL 11/21/20 09:00 01/05/21 08:59 11/26/20 08:17 Atorvastatin Calcium (Lipitor) 20 mg BEDTIME ORAL 11/20/20 21:00 02/18/21 20:59 11/25/20 21:11 Clonazepam (KlonoPIN) 0.5 mg HSPRN PRN ORAL For Anxiety 11/20/20 17:30 11/27/20 17:29 Dextrose (Dextrose 50%) 25 ml Q30M PRN IV Hypoglycemia 11/20/20 04:30 02/18/21 04:29 Dextrose (Dextrose 50%) 50 ml Q30M PRN IV Hypoglycemia 11/20/20 04:30 02/18/21 04:29 Docusate Sodium (Colace) 100 mg THREE TIMES A DAY ORAL 11/20/20 13:00 12/20/20 12:59 11/26/20 08:18 Guaifenesin/ Dextromethorphan (Robitussin DM Syrup) 15 ml Q6H PRN ORAL For Cough 11/24/20 06:45 02/22/21 06:44 Heparin Sodium (Porcine) (Heparin 5000 units/ml) 5,000 units EVERY 12 HOURS SUBQ 11/20/20 09:00 01/04/21 08:59 11/26/20 08:16 Insulin Aspart (NovoLOG) BEFORE MEALS AND HS SUBQ 11/20/20 06:30 02/18/21 06:29 11/26/20 06:04 Irbesartan (Avapro) 300 mg DAILY ORAL 11/21/20 09:00 02/19/21 08:59 11/26/20 08:18 Meclizine HCl (Antivert) 25 mg EVERY 8 HOURS ORAL 11/21/20 22:00 12/21/20 21:59 11/26/20 05:49 Meclizine HCl (Antivert) 25 mg Q8H PRN ORAL for dizziness 11/20/20 17:30 12/20/20 17:29 Methylprednisolone Sodium Succinate (Solu-MEDROL) 40 mg EVERY 12 HOURS IVP 11/24/20 11:30 02/22/21 11:29 11/26/20 08:19 Morphine Sulfate (Morphine Sulfate) 2 mg Q4H PRN IVP For Pain 11/20/20 04:30 11/27/20 04:29 Nebivolol (Bystolic) 2.5 mg DAILY ORAL 11/21/20 09:00 12/21/20 08:59 11/26/20 08:19 Pantoprazole (Protonix) 40 mg EVERY 12 HOURS ORAL 11/20/20 21:00 12/20/20 20:59 11/26/20 08:19 Patient Own Medication (Patient's Own Med) 1 ea DAILY ORAL 11/22/20 09:00 12/22/20 08:59 11/26/20 08:31 Patient Own Medication (Patient's Own Med) 1 ea DAILY ORAL 11/22/20 09:00 12/22/20 08:59 11/26/20 08:32 Ropinirole HCl (Requip) 1 mg DAILY ORAL 11/21/20 09:00 12/21/20 08:59 11/26/20 08:19 Tamsulosin HCl (Flomax) 0.4 mg TWICE A DAY ORAL 11/20/20 18:00 12/20/20 17:59 11/26/20 08:18 Vitamin D (Vitamin D) 5,000 unit DAILY ORAL 11/21/20 09:00 12/21/20 08:59 11/26/20 08:18 Assessment/Plan Assessment/Plan 1. COVID-19 pneumonia with history of fever (T-max= 101.5) -on 15L NRB saturating at 94-95%; has been failing weaning trial; currently no attachment available for 10L Venturi mask. pt failed on 6L VM -Given x-ray findings and history of fever, we will continue broad-spectrum antibiotics for pneumonia coverage - s/p dexamethasone - s/p ivermectin x1 dose - on Solu-Medrol 2. Weakness - seen by PT 3. SOUMYA -IV fluids -Monitor renal parameters 4. Diabetes mellitus with hyperglycemia -On insulin 5. Elevated inflammatory markers -On heparin, given elevated BUN, Cr - Venous duplex negative for DVT - on heparin subQ q12h 6. Obstructive sleep apnea -Patient reports using CPAP at night at home -ordered CPAP at night with the setting of 12 - pt has been refusing CPAP because it's uncomfortable and drying his eyes - Continue NRB at night unless he feels comfortable using CPAP 10. New onset fever - Hshe=146.4; resolved - no leukocytosis - monitor The care for this patient was discussed with my supervising physician. Time spent for this case was approximately 31 minutes. Wm Marx Nov 26, 2020 10:58
--- NOTE | 2020-11-26 11:15 | Cardiac Electrophysiology PN ---
Subjective Subjective Seen and DW RN [phone] Objective Last 24 Hour Vital Signs Date Time Temp Pulse Resp B/P (MAP) Pulse Ox O2 Delivery O2 Flow Rate FiO2 11/26/20 09:00 Non-Rebreather 15.0 11/26/20 08:18 156/119 11/26/20 08:00 97.0 54 18 156/119 (131) 95 11/26/20 04:00 97.9 65 18 135/74 (94) 94 11/25/20 23:35 98.1 60 18 138/75 (96) 94 11/25/20 21:00 Non-Rebreather 15.0 11/25/20 19:56 97.5 56 18 136/72 (93) 97 11/25/20 19:35 97 Non-Rebreather 15.0 100 11/25/20 16:00 97.3 57 19 114/73 (87) 95 11/25/20 12:00 98.4 62 18 137/76 (96) 95 Intake and Output 11/25/20 11/26/20 19:00 07:00 Intake Total 1150 ml 1350 ml Output Total 1000 ml Balance 1150 ml 350 ml Intake Oral 750 ml IV Total 550 ml 600 ml Other 600 ml Output Urine Total 1000 ml # Voids 3 Laboratory Tests Test 11/25/20 16:59 11/26/20 07:45 POC Whole Blood Glucose Pending White Blood Count 9.1 K/UL (4.8-10.8) Red Blood Count 3.69 M/UL (4.70-6.10) L Hemoglobin 12.6 G/DL (14.2-18.0) L Hematocrit 34.8 % (42.0-52.0) L Mean Corpuscular Volume 94 FL (80-99) Mean Corpuscular Hemoglobin 34.3 PG (27.0-31.0) H Mean Corpuscular Hemoglobin Concent 36.3 G/DL (32.0-36.0) H Red Cell Distribution Width 14.0 % (11.6-14.8) Platelet Count 206 K/UL (150-450) Mean Platelet Volume 9.3 FL (6.5-10.1) Neutrophils (%) (Auto) % (45.0-75.0) Lymphocytes (%) (Auto) % (20.0-45.0) Monocytes (%) (Auto) % (1.0-10.0) Eosinophils (%) (Auto) % (0.0-3.0) Basophils (%) (Auto) % (0.0-2.0) Differential Total Cells Counted 100 Neutrophils % (Manual) 88 % (45-75) H Lymphocytes % (Manual) 9 % (20-45) L Monocytes % (Manual) 3 % (1-10) Eosinophils % (Manual) 0 % (0-3) Basophils % (Manual) 0 % (0-2) Band Neutrophils 0 % (0-8) Platelet Estimate Adequate Platelet Morphology Normal Hypochromasia 1+ Anisocytosis 1+ Sodium Level 139 MMOL/L (136-145) Potassium Level 4.1 MMOL/L (3.5-5.1) Chloride Level 106 MMOL/L (98-107) Carbon Dioxide Level 27 MMOL/L (21-32) Anion Gap 6 mmol/L (5-15) Blood Urea Nitrogen 26 mg/dL (7-18) H Creatinine 1.2 MG/DL (0.55-1.30) Estimat Glomerular Filtration Rate 57.5 mL/min (>60) Glucose Level 154 MG/DL (74-106) H Calcium Level 8.2 MG/DL (8.5-10.1) Maxi Pugh MD Nov 26, 2020 11:15
--- NOTE | 2020-11-26 11:24 | Infectious Diseases Prog Note ---
Assessment/Plan Assessment/Plan antibiotics :none A 1. covid 19 pneumonia on 15 liters O2 with 95 % saturation s/p ivermectin 2. COPD 3. hyperlipidemia 4. BPH P 1. continue solumedrol 2. continue isolation Subjective Constitutional: Denies: fever, chills Respiratory: Reports: shortness of breath; Denies: dry cough Gastrointestinal/Abdominal: Denies: nausea, vomiting, diarrhea Musculoskeletal: Denies: pain Allergies: Coded Allergies: No Known Allergies (Unverified , 10/20/12) Objective Last 24 Hour Vital Signs Date Time Temp Pulse Resp B/P (MAP) Pulse Ox O2 Delivery O2 Flow Rate FiO2 11/26/20 09:00 Non-Rebreather 15.0 11/26/20 08:18 156/119 11/26/20 08:00 97.0 54 18 156/119 (131) 95 11/26/20 04:00 97.9 65 18 135/74 (94) 94 11/25/20 23:35 98.1 60 18 138/75 (96) 94 11/25/20 21:00 Non-Rebreather 15.0 11/25/20 19:56 97.5 56 18 136/72 (93) 97 11/25/20 19:35 97 Non-Rebreather 15.0 100 11/25/20 16:00 97.3 57 19 114/73 (87) 95 11/25/20 12:00 98.4 62 18 137/76 (96) 95 Height (Feet): 5 Height (Inches): 8.00 Weight (Pounds): 190 Laboratory Tests Test 11/25/20 16:59 11/26/20 07:45 POC Whole Blood Glucose Pending White Blood Count 9.1 K/UL (4.8-10.8) Red Blood Count 3.69 M/UL (4.70-6.10) L Hemoglobin 12.6 G/DL (14.2-18.0) L Hematocrit 34.8 % (42.0-52.0) L Mean Corpuscular Volume 94 FL (80-99) Mean Corpuscular Hemoglobin 34.3 PG (27.0-31.0) H Mean Corpuscular Hemoglobin Concent 36.3 G/DL (32.0-36.0) H Red Cell Distribution Width 14.0 % (11.6-14.8) Platelet Count 206 K/UL (150-450) Mean Platelet Volume 9.3 FL (6.5-10.1) Neutrophils (%) (Auto) % (45.0-75.0) Lymphocytes (%) (Auto) % (20.0-45.0) Monocytes (%) (Auto) % (1.0-10.0) Eosinophils (%) (Auto) % (0.0-3.0) Basophils (%) (Auto) % (0.0-2.0) Differential Total Cells Counted 100 Neutrophils % (Manual) 88 % (45-75) H Lymphocytes % (Manual) 9 % (20-45) L Monocytes % (Manual) 3 % (1-10) Eosinophils % (Manual) 0 % (0-3) Basophils % (Manual) 0 % (0-2) Band Neutrophils 0 % (0-8) Platelet Estimate Adequate Platelet Morphology Normal Hypochromasia 1+ Anisocytosis 1+ Sodium Level 139 MMOL/L (136-145) Potassium Level 4.1 MMOL/L (3.5-5.1) Chloride Level 106 MMOL/L (98-107) Carbon Dioxide Level 27 MMOL/L (21-32) Anion Gap 6 mmol/L (5-15) Blood Urea Nitrogen 26 mg/dL (7-18) H Creatinine 1.2 MG/DL (0.55-1.30) Estimat Glomerular Filtration Rate 57.5 mL/min (>60) Glucose Level 154 MG/DL (74-106) H Calcium Level 8.2 MG/DL (8.5-10.1) L Current Medications Medications (Trade) Dose Ordered Sig/Wilson Route PRN Reason Start Time Stop Time Status Last Admin Dose Admin Acetaminophen (Tylenol) 650 mg Q6H PRN ORAL Temp >100.5 11/20/20 04:30 12/20/20 04:29 11/23/20 23:57 Aspirin (ASA) 81 mg DAILY ORAL 11/21/20 09:00 01/05/21 08:59 11/26/20 08:17 Atorvastatin Calcium (Lipitor) 20 mg BEDTIME ORAL 11/20/20 21:00 02/18/21 20:59 11/25/20 21:11 Clonazepam (KlonoPIN) 0.5 mg HSPRN PRN ORAL For Anxiety 11/20/20 17:30 11/27/20 17:29 Dextrose (Dextrose 50%) 25 ml Q30M PRN IV Hypoglycemia 11/20/20 04:30 02/18/21 04:29 Dextrose (Dextrose 50%) 50 ml Q30M PRN IV Hypoglycemia 11/20/20 04:30 02/18/21 04:29 Docusate Sodium (Colace) 100 mg THREE TIMES A DAY ORAL 11/20/20 13:00 12/20/20 12:59 11/26/20 08:18 Guaifenesin/ Dextromethorphan (Robitussin DM Syrup) 15 ml Q6H PRN ORAL For Cough 11/24/20 06:45 02/22/21 06:44 Heparin Sodium (Porcine) (Heparin 5000 units/ml) 5,000 units EVERY 12 HOURS SUBQ 11/20/20 09:00 01/04/21 08:59 11/26/20 08:16 Insulin Aspart (NovoLOG) BEFORE MEALS AND HS SUBQ 11/20/20 06:30 02/18/21 06:29 11/26/20 06:04 Irbesartan (Avapro) 300 mg DAILY ORAL 11/21/20 09:00 02/19/21 08:59 11/26/20 08:18 Meclizine HCl (Antivert) 25 mg EVERY 8 HOURS ORAL 11/21/20 22:00 12/21/20 21:59 11/26/20 05:49 Meclizine HCl (Antivert) 25 mg Q8H PRN ORAL for dizziness 11/20/20 17:30 12/20/20 17:29 Methylprednisolone Sodium Succinate (Solu-MEDROL) 40 mg EVERY 12 HOURS IVP 11/24/20 11:30 02/22/21 11:29 11/26/20 08:19 Morphine Sulfate (Morphine Sulfate) 2 mg Q4H PRN IVP For Pain 11/20/20 04:30 11/27/20 04:29 Nebivolol (Bystolic) 5 mg DAILY ORAL 11/26/20 11:30 12/21/20 08:59 Pantoprazole (Protonix) 40 mg EVERY 12 HOURS ORAL 11/20/20 21:00 12/20/20 20:59 11/26/20 08:19 Patient Own Medication (Patient's Own Med) 1 ea DAILY ORAL 11/22/20 09:00 12/22/20 08:59 11/26/20 08:31 Patient Own Medication (Patient's Own Med) 1 ea DAILY ORAL 11/22/20 09:00 12/22/20 08:59 11/26/20 08:32 Ropinirole HCl (Requip) 1 mg DAILY ORAL 11/21/20 09:00 12/21/20 08:59 11/26/20 08:19 Tamsulosin HCl (Flomax) 0.4 mg TWICE A DAY ORAL 11/20/20 18:00 12/20/20 17:59 11/26/20 08:18 Vitamin D (Vitamin D) 5,000 unit DAILY ORAL 11/21/20 09:00 12/21/20 08:59 11/26/20 08:18 Eliud Jennings MD Nov 26, 2020 11:24
[2020-11-26 12:00] VITALS: BP 159/73
--- NOTE | 2020-11-26 12:04 | NUR ---
RD ASSESSMENT & RECOMMENDATIONS SEE CARE ACTIVITY FOR COMPLETE ASSESSMENT DAILY ESTIMATED NEEDS: Needs based on Pulmonary, DM 72kg 25-30 kcals/kg 9619-7149 total kcals 1-1.5 g protein/kg 72-108 g total protein 20-25 mL/kg 4778-8558 total fluid mLs NUTRITION DIAGNOSIS: Altered nutrition related lab values related to DM, covid 19 Pna as evidenced by tmax 102.7, elevated BG (139-180), A1C 6.9. CURRENT DIET: CCHO MED/ LOW NA PO DIET RECOMMENDATIONS: W/ current poor po intake-> REGULAR/ LIBERALIZED diet /texture as tolerated ADDITIONAL RECOMMENDATIONS: 1) Maintain daily calibrated bed scale wts 2) Monitor BG w/ current poor po intake, check q4-q6 for hypoglycemia 3) Add Glucerna w/ meals TID (250 kcal/10g pro) 4) Renal labs improving, no recs for renal diet at this time
--- NOTE | 2020-11-26 13:10 | NUR ---
CHARGE NURSE NOTE: Spoke with Pt's Granddaughter. She concerns that pt is Non-rebreather mask and placed on Med-Surg.Unit. She wants to transfer patient to [facility], and she has a doctor who will accept the patient. was notified, he gave an order to transfer to [facility].
--- NOTE | 2020-11-26 14:41 | NUR ---
CHARGE NURSE NOTE; has been notified that he has to put patient on the list (transfer to [facility])
--- NOTE | 2020-11-26 14:45 | NUR ---
CASE MANAGEMENT: FAXED FACE SHEET TO [facility] T: [phone] F: [phone] PHYSICIAN MUST CALL [facility] AND PLACE PATIENT ON THE LIST FOR TRANSFER
[2020-11-26 16:00] VITALS: BP 136/66
--- NOTE | 2020-11-26 16:01 | NUR ---
NURSE NOTES: Received patient from 4E. Received report from CAMRON Walsh. Patient on Non rebreather 15L satting @ 96%. Breathing is even and unlabored at this time with no signs of respiratory distress. No pain or discomfort noted at this time. monitoring engineer in place, currently on SR with HR 65. Bed in lowest position, locked with side rails x3 up. Call light within reach.
--- NOTE | 2020-11-26 16:05 | NUR ---
Amf Mechanic: Patient transferred to 2019-2 @ 2E; report given to CAMRON Diop; patient stable; CPAP and IV poll transferred with patient; belonging lists counted and signed by transferring and receiving nurses;
--- NOTE | 2020-11-26 19:19 | NUR ---
NURSE NOTES: Pt. received from CAMRON De. Pt. AAOx 3, breathing even and unlabored on 15L NRB, no indications of respiratory distress, no complaints of pain at this time. IV noted left FA 22g, saline locked, Bed low and locked, side rails x3 up, bed alarm active, and call light in reach.
--- NOTE | 2020-11-26 19:22 | NUR ---
NURSE HAND-OFF REPORT: Important Events on Shift:NA Patient Status: Stable full code Diet: Regular Pending Orders:NA Pending Results/LabsNA Pending MD notification:NA Latest Vital Signs: Temperature 98.1 , Pulse 80 , B/P 136 /66 , Respiratory Rate 20 , O2 SAT 96 , Room Air, O2 Flow Rate 15.0 . Vital Sign Comment: Stable EKG Rhythm: Sinus Rhythm Rhythm change?: N MD Notified?: - MD Response: Latest Delarosa Fall Score: 45 Fall Risk: High Risk Safety Measures: Call light Within Reach, Bed Alarm Zone 1, Side Rails Side Rails x2, Bed position Low and Locked. Fall Precautions: Door Sign Patient Fall Education Report given to CAMRON Ayala. Addendum: 11/26/20 at 1923 by Kenisha Cohen RN Given report to CAMRON Pink.
[2020-11-26 20:00] VITALS: BP 151/67
[2020-11-26] MEDS: Atorvastatin 20mg tab ORAL SCH (20:02)
--- NOTE | 2020-11-26 23:41 | NUR ---
NURSE NOTES: Charisse, [facility]. acknowledged pt.'s family member request for transfer but currently no bed available at this time. Charisse discussed [facility] will follow up 11/27 for transfer pending availability.
[2020-11-27] VITALS: BP 126/56
[2020-11-27 04:00] VITALS: BP 147/73
[2020-11-27] MEDS: Meclizine 25mg tab ORAL SCH ×4 (06:04→21:28)
[2020-11-27] MEDS: NovoLOG Insulin Flexpen SUBQ SCH ×4 (06:08→20:46)
[2020-11-27 06:19] LABS: HEMATOCRIT 35.8 % (42.0-52.0); MEAN CORPUSCULAR VOLUME 94 FL (80-99); PLATELET COUNT 214 K/UL (150-450); RED BLOOD COUNT 3.79 M/UL (4.70-6.10); RED CELL DISTRIBUTION WIDTH 13.4 % (11.6-14.8); WHITE BLOOD COUNT 8.2 K/UL (4.8-10.8)
--- NOTE | 2020-11-27 06:31 | Hematology/Onc Progress Note ---
Assessment/Plan Assessment/Plan Assessment and Recs # Thrombocytopenia likely related to underlying covid19++++++ --> smear reviewed, no blasts --> hep and hiv as needed --> supportive care for now --> transfuse prn basis --> ABX --> plt 144-->160 # Anemia of chronic disease --> trend hgb 12 --> no hemolysis # COVID-19 --> per pulm and id recs --> abx ctx/azithro # Elevated ddimer poa --> duplex legs-->neg # Pneumonia --> as above # Renal failure --> ivfs # Dehydration --> goal euvolemia # Lactic acidosis # Dvt ppx heparin sq Appreciate consultation and appreciate consultation Subjective Constitutional: Denies: no symptoms, chills, fever, malaise, weakness, other HEENT: Denies: no symptoms, eye pain, blurred vision, tearing, double vision, ear pain, ear discharge, nose pain, nose congestion, throat pain, throat swelling, mouth pain, mouth swelling, other Cardiovascular: Denies: no symptoms, chest pain, edema, irregular heart rate, lightheadedness, palpitations, syncope, other Genitourinary: Denies: no symptoms, burning, discharge, frequency, flank pain, hematuria, incontinence, pain, urgency, other Neurologic/Psychiatric: Denies: no symptoms, anxiety, depressed, emotional problems, headache, numbness, paresthesia, pre-existing deficit, seizure, tingling, tremors, weakness, other Endocrine: Denies: no symptoms, excessive sweating, flushing, intolerance to cold, intolerance to heat, increased hunger, increased thirst, increased urine, unexplained weight gain, unexplained weight loss, other Hematologic/Lymphatic: Denies: no symptoms, anemia, easy bleeding, easy bruis ing, adenopathy, other Allergies: Coded Allergies: No Known Allergies (Unverified , 10/20/12) Subjective 11/24 on 5l oxygen, no bleeding, says is more comfortable, but not fully at baseline 11/25 nonrebreather, labs noted, no bleeding, ene rn, on steriods 11/26 nonrebreather, has been refusing cpap, have ordered for labs in am 11/27 nr 15l, pending transfer to [facility], labs noted Objective Objective Current Medications Medications (Trade) Dose Ordered Sig/Wilson Route PRN Reason Start Time Stop Time Status Last Admin Dose Admin Acetaminophen (Tylenol) 650 mg Q6H PRN ORAL Temp >100.5 11/20/20 04:30 12/20/20 04:29 11/23/20 23:57 Aspirin (ASA) 81 mg DAILY ORAL 11/21/20 09:00 01/05/21 08:59 11/26/20 08:17 Atorvastatin Calcium (Lipitor) 20 mg BEDTIME ORAL 11/20/20 21:00 02/18/21 20:59 11/26/20 20:02 Clonazepam (KlonoPIN) 0.5 mg HSPRN PRN ORAL For Anxiety 11/20/20 17:30 11/27/20 17:29 Dextrose (Dextrose 50%) 25 ml Q30M PRN IV Hypoglycemia 11/20/20 04:30 02/18/21 04:29 Dextrose (Dextrose 50%) 50 ml Q30M PRN IV Hypoglycemia 11/20/20 04:30 02/18/21 04:29 Docusate Sodium (Colace) 100 mg THREE TIMES A DAY ORAL 11/20/20 13:00 12/20/20 12:59 11/26/20 17:15 Guaifenesin/ Dextromethorphan (Robitussin DM Syrup) 15 ml Q6H PRN ORAL For Cough 11/24/20 06:45 02/22/21 06:44 Heparin Sodium (Porcine) (Heparin 5000 units/ml) 5,000 units EVERY 12 HOURS SUBQ 11/20/20 09:00 01/04/21 08:59 11/26/20 20:03 Insulin Aspart (NovoLOG) BEFORE MEALS AND HS SUBQ 11/20/20 06:30 02/18/21 06:29 11/26/20 16:35 Irbesartan (Avapro) 300 mg DAILY ORAL 11/21/20 09:00 02/19/21 08:59 11/26/20 08:18 Meclizine HCl (Antivert) 25 mg EVERY 8 HOURS ORAL 11/21/20 22:00 12/21/20 21:59 11/27/20 06:04 Meclizine HCl (Antivert) 25 mg Q8H PRN ORAL for dizziness 11/20/20 17:30 12/20/20 17:29 Methylprednisolone Sodium Succinate (Solu-MEDROL) 40 mg EVERY 12 HOURS IVP 11/24/20 11:30 02/22/21 11:29 11/26/20 20:01 Nebivolol (Bystolic) 5 mg DAILY ORAL 11/26/20 11:30 12/21/20 08:59 11/26/20 12:13 Pantoprazole (Protonix) 40 mg EVERY 12 HOURS ORAL 11/20/20 21:00 12/20/20 20:59 11/26/20 20:02 Patient Own Medication (Patient's Own Med) 1 ea DAILY ORAL 11/22/20 09:00 12/22/20 08:59 11/26/20 08:31 Patient Own Medication (Patient's Own Med) 1 ea DAILY ORAL 11/22/20 09:00 12/22/20 08:59 11/26/20 08:32 Ropinirole HCl (Requip) 1 mg DAILY ORAL 11/21/20 09:00 12/21/20 08:59 11/26/20 08:19 Tamsulosin HCl (Flomax) 0.4 mg TWICE A DAY ORAL 11/20/20 18:00 12/20/20 17:59 11/26/20 17:15 Vitamin D (Vitamin D) 5,000 unit DAILY ORAL 11/21/20 09:00 12/21/20 08:59 11/26/20 08:18 Last 24 Hour Vital Signs Date Time Temp Pulse Resp B/P (MAP) Pulse Ox O2 Delivery O2 Flow Rate FiO2 11/27/20 04:00 62 11/27/20 04:00 97.9 62 24 147/73 (97) 93 11/27/20 00:00 56 11/27/20 00:00 98.2 56 26 126/56 (79) 98 11/26/20 21:00 Non-Rebreather 15.0 11/26/20 20:00 98.5 72 22 151/67 (95) 95 11/26/20 20:00 72 11/26/20 19:29 94 Non-Rebreather 15.0 100 11/26/20 16:00 98.1 80 20 136/66 (89) 96 11/26/20 15:44 71 11/26/20 12:00 98.0 66 18 159/73 (101) 95 11/26/20 09:00 Non-Rebreather 15.0 11/26/20 08:18 156/119 11/26/20 08:00 97.0 54 18 156/119 (131) 95 11/26/20 04:00 97.9 65 18 135/74 (94) 94 11/25/20 23:35 98.1 60 18 138/75 (96) 94 11/25/20 21:00 Non-Rebreather 15.0 11/25/20 19:56 97.5 56 18 136/72 (93) 97 11/25/20 19:35 97 Non-Rebreather 15.0 100 11/25/20 16:00 97.3 57 19 114/73 (87) 95 11/25/20 12:00 98.4 62 18 137/76 (96) 95 11/25/20 09:59 96 Nasal Cannula 5.0 40 11/25/20 09:00 Non-Rebreather 15.0 11/25/20 08:15 144/81 11/25/20 08:00 97.0 59 20 144/81 (102) 94 Intake and Output 11/26/20 11/27/20 19:00 07:00 Intake Total 200 ml 200 ml Output Total 600 ml Balance 200 ml -400 ml Intake Oral 200 ml IV Total 200 ml Output Urine Total 600 ml # Voids 3 Labs Test 11/24/20 12:07 11/24/20 16:24 11/24/20 21:17 11/25/20 05:40 POC Whole Blood Glucose 143 MG/DL (74-106) 169 MG/DL (74-106) White Blood Count 6.3 K/UL (4.8-10.8) Red Blood Count 3.75 M/UL (4.70-6.10) Hemoglobin 12.8 G/DL (14.2-18.0) Hematocrit 35.0 % (42.0-52.0) Mean Corpuscular Volume 93 FL (80-99) Mean Corpuscular Hemoglobin 34.1 PG (27.0-31.0) Mean Corpuscular Hemoglobin Concent 36.5 G/DL (32.0-36.0) Red Cell Distribution Width 13.4 % (11.6-14.8) Platelet Count 163 K/UL (150-450) Mean Platelet Volume 10.0 FL (6.5-10.1) Neutrophils (%) (Auto) % (45.0-75.0) Lymphocytes (%) (Auto) % (20.0-45.0) Monocytes (%) (Auto) % (1.0-10.0) Eosinophils (%) (Auto) % (0.0-3.0) Basophils (%) (Auto) % (0.0-2.0) Differential Total Cells Counted 100 Neutrophils % (Manual) 85 % (45-75) Lymphocytes % (Manual) 11 % (20-45) Monocytes % (Manual) 1 % (1-10) Eosinophils % (Manual) 0 % (0-3) Basophils % (Manual) 0 % (0-2) Band Neutrophils 3 % (0-8) Platelet Estimate Adequate Platelet Morphology Normal Red Blood Cell Morphology Normal Sodium Level 138 MMOL/L (136-145) Potassium Level 4.4 MMOL/L (3.5-5.1) Chloride Level 106 MMOL/L (98-107) Carbon Dioxide Level 24 MMOL/L (21-32) Anion Gap 8 mmol/L (5-15) Blood Urea Nitrogen 31 mg/dL (7-18) Creatinine 1.4 MG/DL (0.55-1.30) Estimat Glomerular Filtration Rate 48.2 mL/min (>60) Glucose Level 180 MG/DL (74-106) Calcium Level 8.0 MG/DL (8.5-10.1) Test 11/25/20 16:59 11/26/20 07:45 11/26/20 12:09 11/26/20 19:44 White Blood Count 9.1 K/UL (4.8-10.8) Red Blood Count 3.69 M/UL (4.70-6.10) Hemoglobin 12.6 G/DL (14.2-18.0) Hematocrit 34.8 % (42.0-52.0) Mean Corpuscular Volume 94 FL (80-99) Mean Corpuscular Hemoglobin 34.3 PG (27.0-31.0) Mean Corpuscular Hemoglobin Concent 36.3 G/DL (32.0-36.0) Red Cell Distribution Width 14.0 % (11.6-14.8) Platelet Count 206 K/UL (150-450) Mean Platelet Volume 9.3 FL (6.5-10.1) Neutrophils (%) (Auto) % (45.0-75.0) Lymphocytes (%) (Auto) % (20.0-45.0) Monocytes (%) (Auto) % (1.0-10.0) Eosinophils (%) (Auto) % (0.0-3.0) Basophils (%) (Auto) % (0.0-2.0) Differential Total Cells Counted 100 Neutrophils % (Manual) 88 % (45-75) Lymphocytes % (Manual) 9 % (20-45) Monocytes % (Manual) 3 % (1-10) Eosinophils % (Manual) 0 % (0-3) Basophils % (Manual) 0 % (0-2) Band Neutrophils 0 % (0-8) Platelet Estimate Adequate Platelet Morphology Normal Hypochromasia 1+ Anisocytosis 1+ Sodium Level 139 MMOL/L (136-145) Potassium Level 4.1 MMOL/L (3.5-5.1) Chloride Level 106 MMOL/L (98-107) Carbon Dioxide Level 27 MMOL/L (21-32) Anion Gap 6 mmol/L (5-15) Blood Urea Nitrogen 26 mg/dL (7-18) Creatinine 1.2 MG/DL (0.55-1.30) Estimat Glomerular Filtration Rate 57.5 mL/min (>60) Glucose Level 154 MG/DL (74-106) Calcium Level 8.2 MG/DL (8.5-10.1) POC Whole Blood Glucose 125 MG/DL (74-106) Test 11/27/20 03:30 11/27/20 06:06 POC Whole Blood Glucose 133 MG/DL (74-106) Height (Feet): 5 Height (Inches): 8.00 Weight (Pounds): 190 Objective Physical Exam Sp02 EP Interpretation: reviewed, normal General: no apparent distress, alert, GCS 15, non-toxic Heent: hearing grossly normal, normal pharynx, no angioedema, normal voice Neck: full range of motion, supple/symm/no masses Respiratory: chest non-tender, lungs clear, normal breath sounds Cardiovasc: regular rate, rhythm, no edema Gastrointestinal: normal bowel sounds, non tender, soft, non-distended, no guarding, no rebound Rectal: deferred Musculoskeletal: back normal, normal range of motion Neurologic: alert, motor strength/tone normal Psychiatric: judgement/insight normal, memory normal Skin: no rash, normal color Gabriel Orozco MD Nov 27, 2020 06:31
--- NOTE | 2020-11-27 06:44 | NUR ---
NURSE NOTES: Pt. bed alarm went off, checking in the room pt was found standing at side of bed. Primary nurse immediately gowned up with PPE and assisted pt. back to bed. Pt. alert with periods of confusion. Educated pt. on use of call light and prioritizing safety. Bed alarm set to zone two, side rails x3 up, bed low and locked. Charge nurse aware.
--- NOTE | 2020-11-27 06:46 | NUR ---
NURSE HAND-OFF REPORT: Important Events on Shift:[pt. with episodes of hu, low 50s. Pt. attempting to get out of bed despite being high fall risk. [facility] alerted no bed available at this time for pt. transfer.] Patient Status: stable, awake Diet: CCHO Medium Pending Orders: tx to [facility] Pending Results/Labs: BNP T4 TSH Pending MD notification: hu and 1st degree heart block Latest Vital Signs: Temperature 97.9 , Pulse 62 , B/P 147 /73 , Respiratory Rate 24 , O2 SAT 93 , Room Air, O2 Flow Rate 15.0 . Vital Sign Comment: stable EKG Rhythm: SR w/ 1st HB Rhythm change?: N MD Notified?: N - MD Response: Latest Delarosa Fall Score: 55 Fall Risk: High Risk Safety Measures: Call light Within Reach, Bed Alarm Zone 1, Side Rails Side Rails x3, Bed position Low and Locked. Fall Precautions: Yellow Socks Yellow Gown Door Sign Patient Fall Education Report given to . Addendum: 11/27/20 at 0710 by Joesph Alexander RN Hand of report given to CAMRON Bach.
[2020-11-27 06:49] LABS: CALCIUM 8.4 MG/DL (8.5-10.1); CREATININE 1.2 MG/DL (0.55-1.30); POTASSIUM 4.9 MMOL/L (3.5-5.1)
--- NOTE | 2020-11-27 07:22 | NUR ---
NURSE NOTES: Received report from Joesph Alexander RN. Patient in supine position, awake and alert, asking about transferring to [facility], on 15 liters non-rebreather, bed in lowest position, wheels locked, side rails up x 2, in no apparent distress.
[2020-11-27 08:00] VITALS: BP 155/80
[2020-11-27] MEDS: Aspirin Baby 81mg ORAL SCH (08:16)
[2020-11-27] MEDS: Bystolic 2.5mg Tab ORAL SCH (08:16)
[2020-11-27] MEDS: Docusate 100mg cap ORAL SCH ×3 (08:17→17:10)
[2020-11-27] MEDS: Irbesartan 150mg tablet ORAL SCH (08:18)
[2020-11-27] MEDS: Vitamin D 1000 units Tab ORAL SCH (08:18)
[2020-11-27] MEDS: Solu-MEDROL 40mg Inj IVP SCH ×2 (08:19→21:00)
[2020-11-27] MEDS: Tamsulosin 0.4mg cap ORAL SCH ×2 (08:19→17:10)
[2020-11-27] MEDS: Heparin 5000 units/ml inj SUBQ SCH ×2 (08:21→21:00)
--- NOTE | 2020-11-27 09:14 | General Progress Note ---
Subjective Constitutional: Reports: weakness Allergies: Coded Allergies: No Known Allergies (Unverified , 10/20/12) All Systems: reviewed and negative except above Subjective o2 mask calm in bed Objective Last 24 Hour Vital Signs Date Time Temp Pulse Resp B/P (MAP) Pulse Ox O2 Delivery O2 Flow Rate FiO2 11/27/20 08:18 155/80 11/27/20 08:00 56 11/27/20 08:00 98.0 70 22 155/80 (105) 94 11/27/20 04:00 62 11/27/20 04:00 97.9 62 24 147/73 (97) 93 11/27/20 00:00 56 11/27/20 00:00 98.2 56 26 126/56 (79) 98 11/26/20 21:00 Non-Rebreather 15.0 11/26/20 20:00 98.5 72 22 151/67 (95) 95 11/26/20 20:00 72 11/26/20 19:29 94 Non-Rebreather 15.0 100 11/26/20 16:00 98.1 80 20 136/66 (89) 96 11/26/20 15:44 71 11/26/20 12:00 98.0 66 18 159/73 (101) 95 Intake and Output 11/26/20 11/27/20 19:00 07:00 Intake Total 200 ml 200 ml Output Total 600 ml Balance 200 ml -400 ml Intake Oral 200 ml IV Total 200 ml Output Urine Total 600 ml # Voids 3 Laboratory Tests 11/26/20 12:09: POC Whole Blood Glucose [Pending] 11/26/20 19:44: POC Whole Blood Glucose 125H 11/27/20 03:30: White Blood Count 8.2, Red Blood Count 3.79L, Hemoglobin 13.0L, Hematocrit 35.8L , Mean Corpuscular Volume 94, Mean Corpuscular Hemoglobin 34.3H, Mean Corpuscular Hemoglobin Concent 36.3H, Red Cell Distribution Width 13.4, Platelet Count 214, Mean Platelet Volume 8.6, Neutrophils (%) (Auto) , Lymphocytes (%) (Auto) , Monocytes (%) (Auto) , Eosinophils (%) (Auto) , Basophils (%) (Auto) , Differential Total Cells Counted 100, Neutrophils % (Manual) 85H, Lymphocytes % (Manual) 10L, Monocytes % (Manual) 5, Eosinophils % (Manual) 0, Basophils % (Manual) 0, Band Neutrophils 0, Platelet Estimate Adequate, Platelet Morphology Normal, Red Blood Cell Morphology Normal, Sodium Level 138, Potassium Level 4.9, Chloride Level 105, Carbon Dioxide Level 26, Anion Gap 7, Blood Urea Nitrogen 24H, Creatinine 1.2, Estimat Glomerular Filtration Rate 57.5, Glucose Level 138H , Calcium Level 8.4L, Pro-B-Type Natriuretic Peptide 2908H, Thyroid Stimulating Hormone (TSH) 0.522, Free Thyroxine 1.41 11/27/20 06:06: POC Whole Blood Glucose 133H Height (Feet): 5 Height (Inches): 8.00 Weight (Pounds): 190 General Appearance: lethargic EENT: normal ENT inspection Neck: normal alignment Cardiovascular: normal peripheral pulses, normal rate, regular rhythm Respiratory/Chest: chest wall non-tender, lungs clear, normal breath sounds Abdomen: normal bowel sounds, non tender, soft Extremities: normal inspection Edema: no edema noted Arm (L), no edema noted Arm (R), no edema noted Leg (L), no edema noted Leg (R), no edema noted Pedal (L), no edema noted Pedal (R), no edema noted Generalized Neurologic: motor weakness Skin: normal pigmentation, warm/dry Assessment/Plan Problem List: (1) HTN (hypertension) ICD Codes: I10 - Essential (primary) hypertension SNOMED: 18108002 (2) Diabetes ICD Codes: E11.9 - Type 2 diabetes mellitus without complications SNOMED: 99726821 (3) Weak ICD Codes: R53.1 - Weakness SNOMED: 04522377 (4) Fever ICD Codes: R50.9 - Fever, unspecified SNOMED: 712657536 (5) COVID-19 ICD Codes: U07.1 - COVID-19 SNOMED: 021044291 (6) Renal failure ICD Codes: N19 - Unspecified kidney failure SNOMED: 79532862 (7) Pneumonia ICD Codes: J18.9 - Pneumonia, unspecified organism SNOMED: 424224794 (8) Dehydration ICD Codes: E86.0 - Dehydration SNOMED: 87075792 (9) CVA (cerebral infarction) ICD Codes: I63.9 - CVA (cerebral infarction) SNOMED: 967457226 Status: unchanged Assessment/Plan: o2 pulm tx abx bp bs control cbc bmp am transfer to [place] when bed available per family request Ziggy Carlson DO Nov 27, 2020 09:14
--- NOTE | 2020-11-27 10:26 | Infectious Diseases Prog Note ---
Assessment/Plan Assessment/Plan A 1. COVID19 pneumonia 2. COPD 3. hyperlipidemia 4. BPH P 1.Received ivermectin x 1 dose 2. continue Solumedrol 3. continue isolation Subjective ROS Limited/Unobtainable: Yes Constitutional: Denies: fever Respiratory: Reports: shortness of breath Allergies: Coded Allergies: No Known Allergies (Unverified , 10/20/12) Objective Last 24 Hour Vital Signs Date Time Temp Pulse Resp B/P (MAP) Pulse Ox O2 Delivery O2 Flow Rate FiO2 11/27/20 09:00 Non-Rebreather 15.0 11/27/20 08:18 155/80 11/27/20 08:00 56 11/27/20 08:00 98.0 70 22 155/80 (105) 94 11/27/20 04:00 62 11/27/20 04:00 97.9 62 24 147/73 (97) 93 11/27/20 00:00 56 11/27/20 00:00 98.2 56 26 126/56 (79) 98 11/26/20 21:00 Non-Rebreather 15.0 11/26/20 20:00 98.5 72 22 151/67 (95) 95 11/26/20 20:00 72 11/26/20 19:29 94 Non-Rebreather 15.0 100 11/26/20 16:00 98.1 80 20 136/66 (89) 96 11/26/20 15:44 71 11/26/20 12:00 98.0 66 18 159/73 (101) 95 Height (Feet): 5 Height (Inches): 8.00 Weight (Pounds): 190 HEENT: mucous membranes moist Respiratory/Chest: other - Oxygen by NRB mask, 15 L/min Cardiovascular: normal rate Abdomen: soft, non tender Neurologic/Psychiatric: alert, responsive Laboratory Tests Test 11/26/20 12:09 11/26/20 19:44 11/27/20 03:30 11/27/20 06:06 POC Whole Blood Glucose Pending 125 MG/DL (74-106) H 133 MG/DL (74-106) H White Blood Count 8.2 K/UL (4.8-10.8) Red Blood Count 3.79 M/UL (4.70-6.10) L Hemoglobin 13.0 G/DL (14.2-18.0) L Hematocrit 35.8 % (42.0-52.0) L Mean Corpuscular Volume 94 FL (80-99) Mean Corpuscular Hemoglobin 34.3 PG (27.0-31.0) H Mean Corpuscular Hemoglobin Concent 36.3 G/DL (32.0-36.0) H Red Cell Distribution Width 13.4 % (11.6-14.8) Platelet Count 214 K/UL (150-450) Mean Platelet Volume 8.6 FL (6.5-10.1) Neutrophils (%) (Auto) % (45.0-75.0) Lymphocytes (%) (Auto) % (20.0-45.0) Monocytes (%) (Auto) % (1.0-10.0) Eosinophils (%) (Auto) % (0.0-3.0) Basophils (%) (Auto) % (0.0-2.0) Differential Total Cells Counted 100 Neutrophils % (Manual) 85 % (45-75) H Lymphocytes % (Manual) 10 % (20-45) L Monocytes % (Manual) 5 % (1-10) Eosinophils % (Manual) 0 % (0-3) Basophils % (Manual) 0 % (0-2) Band Neutrophils 0 % (0-8) Platelet Estimate Adequate Platelet Morphology Normal Red Blood Cell Morphology Normal Sodium Level 138 MMOL/L (136-145) Potassium Level 4.9 MMOL/L (3.5-5.1) Chloride Level 105 MMOL/L (98-107) Carbon Dioxide Level 26 MMOL/L (21-32) Anion Gap 7 mmol/L (5-15) Blood Urea Nitrogen 24 mg/dL (7-18) H Creatinine 1.2 MG/DL (0.55-1.30) Estimat Glomerular Filtration Rate 57.5 mL/min (>60) Glucose Level 138 MG/DL (74-106) H Calcium Level 8.4 MG/DL (8.5-10.1) L Pro-B-Type Natriuretic Peptide 2908 pg/mL (0-125) H Thyroid Stimulating Hormone (TSH) 0.522 uiU/mL (0.358-3.740) Free Thyroxine 1.41 NG/DL (0.76-1.46) Current Medications Medications (Trade) Dose Ordered Sig/Wilson Route PRN Reason Start Time Stop Time Status Last Admin Dose Admin Acetaminophen (Tylenol) 650 mg Q6H PRN ORAL Temp >100.5 11/20/20 04:30 12/20/20 04:29 11/23/20 23:57 Aspirin (ASA) 81 mg DAILY ORAL 11/21/20 09:00 01/05/21 08:59 11/27/20 08:16 Atorvastatin Calcium (Lipitor) 20 mg BEDTIME ORAL 11/20/20 21:00 02/18/21 20:59 11/26/20 20:02 Clonazepam (KlonoPIN) 0.5 mg HSPRN PRN ORAL For Anxiety 11/20/20 17:30 11/27/20 17:29 Dextrose (Dextrose 50%) 25 ml Q30M PRN IV Hypoglycemia 11/20/20 04:30 02/18/21 04:29 Dextrose (Dextrose 50%) 50 ml Q30M PRN IV Hypoglycemia 11/20/20 04:30 02/18/21 04:29 Docusate Sodium (Colace) 100 mg THREE TIMES A DAY ORAL 11/20/20 13:00 12/20/20 12:59 11/27/20 08:17 Guaifenesin/ Dextromethorphan (Robitussin DM Syrup) 15 ml Q6H PRN ORAL For Cough 11/24/20 06:45 02/22/21 06:44 Heparin Sodium (Porcine) (Heparin 5000 units/ml) 5,000 units EVERY 12 HOURS SUBQ 11/20/20 09:00 01/04/21 08:59 11/27/20 08:21 Insulin Aspart (NovoLOG) BEFORE MEALS AND HS SUBQ 11/20/20 06:30 02/18/21 06:29 11/26/20 16:35 Irbesartan (Avapro) 300 mg DAILY ORAL 11/21/20 09:00 02/19/21 08:59 11/27/20 08:18 Meclizine HCl (Antivert) 25 mg EVERY 8 HOURS ORAL 11/21/20 22:00 12/21/20 21:59 11/27/20 06:04 Meclizine HCl (Antivert) 25 mg Q8H PRN ORAL for dizziness 11/20/20 17:30 12/20/20 17:29 Methylprednisolone Sodium Succinate (Solu-MEDROL) 40 mg EVERY 12 HOURS IVP 11/24/20 11:30 02/22/21 11:29 11/27/20 08:19 Nebivolol (Bystolic) 5 mg DAILY ORAL 11/26/20 11:30 12/21/20 08:59 11/27/20 08:16 Pantoprazole (Protonix) 40 mg EVERY 12 HOURS ORAL 11/20/20 21:00 12/20/20 20:59 11/27/20 08:17 Patient Own Medication (Patient's Own Med) 1 ea DAILY ORAL 11/22/20 09:00 12/22/20 08:59 11/26/20 08:31 Patient Own Medication (Patient's Own Med) 1 ea DAILY ORAL 11/22/20 09:00 12/22/20 08:59 11/26/20 08:32 Ropinirole HCl (Requip) 1 mg DAILY ORAL 11/21/20 09:00 12/21/20 08:59 11/27/20 08:18 Tamsulosin HCl (Flomax) 0.4 mg TWICE A DAY ORAL 11/20/20 18:00 12/20/20 17:59 11/27/20 08:19 Vitamin D (Vitamin D) 5,000 unit DAILY ORAL 11/21/20 09:00 12/21/20 08:59 11/27/20 08:18 Fawad Talbot MD Nov 27, 2020 10:26
--- NOTE | 2020-11-27 10:38 | Cardiac Electrophysiology PN ---
Assessment/Plan Assessment/Plan 1. 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 2. HTN on Avapro 300 and Bystolic 5 daily now 3. Respiratory failure due to Covid, Echo Nl EF on NRBFM 4. Thrombocytopenia, Resolved FU Dr Vince GORDILLO RN and pts daughter Subjective Subjective In SR on 15 liter NRB FM. Awaiting transfer to [facility] at daughters request who is an RN at [facility] Objective Last 24 Hour Vital Signs Date Time Temp Pulse Resp B/P (MAP) Pulse Ox O2 Delivery O2 Flow Rate FiO2 11/27/20 09:00 Non-Rebreather 15.0 11/27/20 08:18 155/80 11/27/20 08:00 56 11/27/20 08:00 98.0 70 22 155/80 (105) 94 11/27/20 04:00 62 11/27/20 04:00 97.9 62 24 147/73 (97) 93 11/27/20 00:00 56 11/27/20 00:00 98.2 56 26 126/56 (79) 98 11/26/20 21:00 Non-Rebreather 15.0 11/26/20 20:00 98.5 72 22 151/67 (95) 95 11/26/20 20:00 72 11/26/20 19:29 94 Non-Rebreather 15.0 100 11/26/20 16:00 98.1 80 20 136/66 (89) 96 11/26/20 15:44 71 11/26/20 12:00 98.0 66 18 159/73 (101) 95 Intake and Output 11/26/20 11/27/20 19:00 07:00 Intake Total 200 ml 200 ml Output Total 600 ml Balance 200 ml -400 ml Intake Oral 200 ml IV Total 200 ml Output Urine Total 600 ml # Voids 3 Laboratory Tests Test 11/26/20 12:09 11/26/20 19:44 11/27/20 03:30 11/27/20 06:06 POC Whole Blood Glucose Pending 125 MG/DL (74-106) H 133 MG/DL (74-106) H White Blood Count 8.2 K/UL (4.8-10.8) Red Blood Count 3.79 M/UL (4.70-6.10) L Hemoglobin 13.0 G/DL (14.2-18.0) L Hematocrit 35.8 % (42.0-52.0) L Mean Corpuscular Volume 94 FL (80-99) Mean Corpuscular Hemoglobin 34.3 PG (27.0-31.0) H Mean Corpuscular Hemoglobin Concent 36.3 G/DL (32.0-36.0) H Red Cell Distribution Width 13.4 % (11.6-14.8) Platelet Count 214 K/UL (150-450) Mean Platelet Volume 8.6 FL (6.5-10.1) Neutrophils (%) (Auto) % (45.0-75.0) Lymphocytes (%) (Auto) % (20.0-45.0) Monocytes (%) (Auto) % (1.0-10.0) Eosinophils (%) (Auto) % (0.0-3.0) Basophils (%) (Auto) % (0.0-2.0) Differential Total Cells Counted 100 Neutrophils % (Manual) 85 % (45-75) H Lymphocytes % (Manual) 10 % (20-45) L Monocytes % (Manual) 5 % (1-10) Eosinophils % (Manual) 0 % (0-3) Basophils % (Manual) 0 % (0-2) Band Neutrophils 0 % (0-8) Platelet Estimate Adequate Platelet Morphology Normal Red Blood Cell Morphology Normal Sodium Level 138 MMOL/L (136-145) Potassium Level 4.9 MMOL/L (3.5-5.1) Chloride Level 105 MMOL/L (98-107) Carbon Dioxide Level 26 MMOL/L (21-32) Anion Gap 7 mmol/L (5-15) Blood Urea Nitrogen 24 mg/dL (7-18) H Creatinine 1.2 MG/DL (0.55-1.30) Estimat Glomerular Filtration Rate 57.5 mL/min (>60) Glucose Level 138 MG/DL (74-106) H Calcium Level 8.4 MG/DL (8.5-10.1) L Pro-B-Type Natriuretic Peptide 2908 pg/mL (0-125) H Thyroid Stimulating Hormone (TSH) 0.522 uiU/mL (0.358-3.740) Free Thyroxine 1.41 NG/DL (0.76-1.46) Objective HEENT: mucous membranes moist Respiratory/Chest: other - Oxygen by NRB mask, 15 L/min Cardiovascular: normal rate Abdomen: soft, non tender Neurologic/Psychiatric: alert, responsive Maxi Apodaca MD Nov 27, 2020 10:38
--- NOTE | 2020-11-27 11:55 | Pulmonology Progress Note ---
Subjective ROS Limited/Unobtainable: Yes Interval Events: none major reported per nursing Constitutional: Denies: fever HEENT: Repors: no symptoms Respiratory: Reports: shortness of breath Cardiovascular: Reports: no symptoms Gastrointestinal/Abdominal: Denies: nausea, vomiting, diarrhea Musculoskeletal: Denies: pain Allergies: Coded Allergies: No Known Allergies (Unverified , 10/20/12) All Systems: reviewed and negative except above Objective Last 24 Hour Vital Signs Date Time Temp Pulse Resp B/P (MAP) Pulse Ox O2 Delivery O2 Flow Rate FiO2 11/27/20 09:00 Non-Rebreather 15.0 11/27/20 08:18 155/80 11/27/20 08:00 56 11/27/20 08:00 98.0 70 22 155/80 (105) 94 11/27/20 04:00 62 11/27/20 04:00 97.9 62 24 147/73 (97) 93 11/27/20 00:00 56 11/27/20 00:00 98.2 56 26 126/56 (79) 98 11/26/20 21:00 Non-Rebreather 15.0 11/26/20 20:00 98.5 72 22 151/67 (95) 95 11/26/20 20:00 72 11/26/20 19:29 94 Non-Rebreather 15.0 100 11/26/20 16:00 98.1 80 20 136/66 (89) 96 11/26/20 15:44 71 11/26/20 12:00 98.0 66 18 159/73 (101) 95 Intake and Output 11/26/20 11/27/20 19:00 07:00 Intake Total 200 ml 200 ml Output Total 600 ml Balance 200 ml -400 ml Intake Oral 200 ml IV Total 200 ml Output Urine Total 600 ml # Voids 3 General Appearance: no acute distress HEENT: atraumatic Respiratory: lungs clear Cardiovascular: normal rate Abdomen: soft, non tender Laboratory Tests 11/26/20 12:09: POC Whole Blood Glucose [Pending] 11/26/20 19:44: POC Whole Blood Glucose 125H 11/27/20 03:30: White Blood Count 8.2, Red Blood Count 3.79L, Hemoglobin 13.0L, Hematocrit 35.8L , Mean Corpuscular Volume 94, Mean Corpuscular Hemoglobin 34.3H, Mean Corpuscular Hemoglobin Concent 36.3H, Red Cell Distribution Width 13.4, Platelet Count 214, Mean Platelet Volume 8.6, Neutrophils (%) (Auto) , Lymphocytes (%) (Auto) , Monocytes (%) (Auto) , Eosinophils (%) (Auto) , Basophils (%) (Auto) , Differential Total Cells Counted 100, Neutrophils % (Manual) 85H, Lymphocytes % (Manual) 10L, Monocytes % (Manual) 5, Eosinophils % (Manual) 0, Basophils % (Manual) 0, Band Neutrophils 0, Platelet Estimate Adequate, Platelet Morphology Normal, Red Blood Cell Morphology Normal, Sodium Level 138, Potassium Level 4.9, Chloride Level 105, Carbon Dioxide Level 26, Anion Gap 7, Blood Urea Nitrogen 24H, Creatinine 1.2, Estimat Glomerular Filtration Rate 57.5, Glucose Level 138H , Calcium Level 8.4L, Pro-B-Type Natriuretic Peptide 2908H, Thyroid Stimulating Hormone (TSH) 0.522, Free Thyroxine 1.41 11/27/20 06:06: POC Whole Blood Glucose 133H 11/27/20 11:49: POC Whole Blood Glucose 172H Current Medications Medications (Trade) Dose Ordered Sig/Wilson Route PRN Reason Start Time Stop Time Status Last Admin Dose Admin Acetaminophen (Tylenol) 650 mg Q6H PRN ORAL Temp >100.5 11/20/20 04:30 12/20/20 04:29 11/23/20 23:57 Aspirin (ASA) 81 mg DAILY ORAL 11/21/20 09:00 01/05/21 08:59 11/27/20 08:16 Atorvastatin Calcium (Lipitor) 20 mg BEDTIME ORAL 11/20/20 21:00 02/18/21 20:59 11/26/20 20:02 Clonazepam (KlonoPIN) 0.5 mg HSPRN PRN ORAL For Anxiety 11/20/20 17:30 11/27/20 17:29 Dextrose (Dextrose 50%) 25 ml Q30M PRN IV Hypoglycemia 11/20/20 04:30 02/18/21 04:29 Dextrose (Dextrose 50%) 50 ml Q30M PRN IV Hypoglycemia 11/20/20 04:30 02/18/21 04:29 Docusate Sodium (Colace) 100 mg THREE TIMES A DAY ORAL 11/20/20 13:00 12/20/20 12:59 11/27/20 08:17 Guaifenesin/ Dextromethorphan (Robitussin DM Syrup) 15 ml Q6H PRN ORAL For Cough 11/24/20 06:45 02/22/21 06:44 Heparin Sodium (Porcine) (Heparin 5000 units/ml) 5,000 units EVERY 12 HOURS SUBQ 11/20/20 09:00 01/04/21 08:59 11/27/20 08:21 Insulin Aspart (NovoLOG) BEFORE MEALS AND HS SUBQ 11/20/20 06:30 02/18/21 06:29 11/26/20 16:35 Irbesartan (Avapro) 300 mg DAILY ORAL 11/21/20 09:00 02/19/21 08:59 11/27/20 08:18 Meclizine HCl (Antivert) 25 mg EVERY 8 HOURS ORAL 11/21/20 22:00 12/21/20 21:59 11/27/20 06:04 Meclizine HCl (Antivert) 25 mg Q8H PRN ORAL for dizziness 11/20/20 17:30 12/20/20 17:29 Methylprednisolone Sodium Succinate (Solu-MEDROL) 40 mg EVERY 12 HOURS IVP 11/24/20 11:30 02/22/21 11:29 11/27/20 08:19 Nebivolol (Bystolic) 5 mg DAILY ORAL 11/26/20 11:30 12/21/20 08:59 11/27/20 08:16 Pantoprazole (Protonix) 40 mg EVERY 12 HOURS ORAL 11/20/20 21:00 12/20/20 20:59 11/27/20 08:17 Patient Own Medication (Patient's Own Med) 1 ea DAILY ORAL 11/22/20 09:00 12/22/20 08:59 11/26/20 08:31 Patient Own Medication (Patient's Own Med) 1 ea DAILY ORAL 11/22/20 09:00 12/22/20 08:59 11/26/20 08:32 Ropinirole HCl (Requip) 1 mg DAILY ORAL 11/21/20 09:00 12/21/20 08:59 11/27/20 08:18 Tamsulosin HCl (Flomax) 0.4 mg TWICE A DAY ORAL 11/20/20 18:00 12/20/20 17:59 11/27/20 08:19 Vitamin D (Vitamin D) 5,000 unit DAILY ORAL 11/21/20 09:00 12/21/20 08:59 11/27/20 08:18 Assessment/Plan Assessment/Plan 1. COVID-19 pneumonia with history of fever (T-max= 101.5) -on 15L NRB saturating at 94-95%; will attempt weaning again with Venturi mask - s/p abx, dexamethasone, ivermectin x1 dose - on Solu-Medrol - check repeat CXR and D-Dimer, increase Lovenox if D-dimer more elevated 2. Weakness - seen by PT 3. SOUMYA -IV fluids -Monitor renal parameters 4. Diabetes mellitus with hyperglycemia -On insulin 5. Elevated inflammatory markers -On heparin, given elevated BUN, Cr - Venous duplex negative for DVT - on heparin subQ q12h 6. Obstructive sleep apnea -Patient reports using CPAP at night at home -ordered CPAP at night with the setting of 12 - pt has been refusing CPAP because it's uncomfortable and drying his eyes - Continue NRB at night unless he feels comfortable using CPAP 10. New onset fever - Mksj=987.4; resolved - no leukocytosis - monitor Noted plans for transfer to [facility] per family request The care for this patient was discussed with my supervising physician. Time spent for this case was approximately 31 minutes. Wm Marx Nov 27, 2020 11:55
[2020-11-27 12:00] VITALS: BP 145/78
[2020-11-27] MEDS: TRADJENTA 5 MG ORAL SCH (13:23)
--- NOTE | 2020-11-27 13:33 | Nephrology Progress Note ---
Assessment/Plan Problem List: (1) Renal failure (ARF), acute on chronic (2) Dehydration (3) COVID-19 (4) Lactic acidosis Assessment Renal failure, acute Possible underlying chronic kidney disease Dehydration COVID-19 infection, pneumonia Lactic acidosis 3+ proteinuria, hematuria with too many RBCs in the urine Plan November 27: Labs reviewed. Serum creatinine within normal limit. Continue per consultants. Blood pressure stable. November 26: Labs reviewed. Serum creatinine 1.2. IV fluids stopped. Midodrine stopped. Continue per consultants. November 25: Labs reviewed. Serum creatinine 1.4. Clinically stable. Continue per consultants. November 24: Labs reviewed. Serum creatinine 1.5. Clinically stable. Continue per consultants. November 23: Labs reviewed. Serum creatinine 1.8. Electrolytes stable. Continue as is. November 22: Labs reviewed. Serum creatinine 1.7. Serum sodium 135. Bolus of 500 cc normal saline given. Continue per consultants. November 21: Labs reviewed. Serum creatinine 1.8. Low phosphorus addressed. Patient full code. Continue per consultants. Previously: Slow hydration Monitor renal parameters Monitor electrolytes Keep the blood pressure blood sugar in check Antibiotics per ID Avoid nephrotoxic's Per orders Subjective ROS Limited/Unobtainable: Yes Objective Objective Last 24 Hour Vital Signs Date Time Temp Pulse Resp B/P (MAP) Pulse Ox O2 Delivery O2 Flow Rate FiO2 11/27/20 12:00 98.2 61 22 145/78 (100) 90 11/27/20 12:00 65 11/27/20 09:00 Non-Rebreather 15.0 11/27/20 08:18 155/80 11/27/20 08:00 56 11/27/20 08:00 98.0 70 22 155/80 (105) 94 11/27/20 07:00 90 Venturi Mask 10.0 50 11/27/20 04:00 62 11/27/20 04:00 97.9 62 24 147/73 (97) 93 11/27/20 00:00 56 11/27/20 00:00 98.2 56 26 126/56 (79) 98 11/26/20 21:00 Non-Rebreather 15.0 11/26/20 20:00 98.5 72 22 151/67 (95) 95 11/26/20 20:00 72 11/26/20 19:29 94 Non-Rebreather 15.0 100 11/26/20 16:00 98.1 80 20 136/66 (89) 96 11/26/20 15:44 71 Intake and Output 11/26/20 11/27/20 19:00 07:00 Intake Total 200 ml 200 ml Output Total 600 ml Balance 200 ml -400 ml Intake Oral 200 ml IV Total 200 ml Output Urine Total 600 ml # Voids 3 Current Medications Medications (Trade) Dose Ordered Sig/Wilson Route PRN Reason Start Time Stop Time Status Last Admin Dose Admin Acetaminophen (Tylenol) 650 mg Q6H PRN ORAL Temp >100.5 11/20/20 04:30 12/20/20 04:29 11/23/20 23:57 Aspirin (ASA) 81 mg DAILY ORAL 11/21/20 09:00 01/05/21 08:59 11/27/20 08:16 Atorvastatin Calcium (Lipitor) 20 mg BEDTIME ORAL 11/20/20 21:00 02/18/21 20:59 11/26/20 20:02 Clonazepam (KlonoPIN) 0.5 mg HSPRN PRN ORAL For Anxiety 11/20/20 17:30 11/27/20 17:29 Dextrose (Dextrose 50%) 25 ml Q30M PRN IV Hypoglycemia 11/20/20 04:30 02/18/21 04:29 Dextrose (Dextrose 50%) 50 ml Q30M PRN IV Hypoglycemia 11/20/20 04:30 02/18/21 04:29 Docusate Sodium (Colace) 100 mg THREE TIMES A DAY ORAL 11/20/20 13:00 12/20/20 12:59 11/27/20 13:24 Guaifenesin/ Dextromethorphan (Robitussin DM Syrup) 15 ml Q6H PRN ORAL For Cough 11/24/20 06:45 02/22/21 06:44 Heparin Sodium (Porcine) (Heparin 5000 units/ml) 5,000 units EVERY 12 HOURS SUBQ 11/20/20 09:00 01/04/21 08:59 11/27/20 08:21 Insulin Aspart (NovoLOG) BEFORE MEALS AND HS SUBQ 11/20/20 06:30 02/18/21 06:29 11/27/20 11:58 Irbesartan (Avapro) 300 mg DAILY ORAL 11/21/20 09:00 4/22/21 08:59 11/27/20 08:18 Meclizine HCl (Antivert) 25 mg EVERY 8 HOURS ORAL 11/21/20 22:00 12/21/20 21:59 11/27/20 13:24 Meclizine HCl (Antivert) 25 mg Q8H PRN ORAL for dizziness 11/20/20 17:30 12/20/20 17:29 Methylprednisolone Sodium Succinate (Solu-MEDROL) 40 mg EVERY 12 HOURS IVP 11/24/20 11:30 02/22/21 11:29 11/27/20 08:19 Nebivolol (Bystolic) 5 mg DAILY ORAL 11/26/20 11:30 12/21/20 08:59 11/27/20 08:16 Pantoprazole (Protonix) 40 mg EVERY 12 HOURS ORAL 11/20/20 21:00 12/20/20 20:59 11/27/20 08:17 Patient Own Medication (Patient's Own Med) 1 ea DAILY ORAL 11/22/20 09:00 12/22/20 08:59 11/27/20 13:23 Patient Own Medication (Patient's Own Med) 1 ea DAILY ORAL 11/22/20 09:00 12/22/20 08:59 11/27/20 13:24 Ropinirole HCl (Requip) 1 mg DAILY ORAL 11/21/20 09:00 12/21/20 08:59 11/27/20 08:18 Tamsulosin HCl (Flomax) 0.4 mg TWICE A DAY ORAL 11/20/20 18:00 12/20/20 17:59 11/27/20 08:19 Vitamin D (Vitamin D) 5,000 unit DAILY ORAL 11/21/20 09:00 12/21/20 08:59 11/27/20 08:18 Laboratory Tests 11/26/20 19:44: POC Whole Blood Glucose 125H 11/27/20 03:30: White Blood Count 8.2, Red Blood Count 3.79L, Hemoglobin 13.0L, Hematocrit 35.8L , Mean Corpuscular Volume 94, Mean Corpuscular Hemoglobin 34.3H, Mean Corpuscular Hemoglobin Concent 36.3H, Red Cell Distribution Width 13.4, Platelet Count 214, Mean Platelet Volume 8.6, Neutrophils (%) (Auto) , Lymphocytes (%) (Auto) , Monocytes (%) (Auto) , Eosinophils (%) (Auto) , Basophils (%) (Auto) , Differential Total Cells Counted 100, Neutrophils % (Manual) 85H, Lymphocytes % (Manual) 10L, Monocytes % (Manual) 5, Eosinophils % (Manual) 0, Basophils % (Manual) 0, Band Neutrophils 0, Platelet Estimate Adequate, Platelet Morphology Normal, Red Blood Cell Morphology Normal, Sodium Level 138, Potassium Level 4.9, Chloride Level 105, Carbon Dioxide Level 26, Anion Gap 7, Blood Urea Nitrogen 24H, Creatinine 1.2, Estimat Glomerular Filtration Rate 57.5, Glucose Level 138H , Calcium Level 8.4L, Pro-B-Type Natriuretic Peptide 2908H, Thyroid Stimulating Hormone (TSH) 0.522, Free Thyroxine 1.41 11/27/20 06:06: POC Whole Blood Glucose 133H 11/27/20 11:49: POC Whole Blood Glucose 172H Height (Feet): 5 Height (Inches): 8.00 Weight (Pounds): 190 General Appearance: no apparent distress EENT: other - On nonrebreather mask Cardiovascular: normal rate Respiratory/Chest: decreased breath sounds Abdomen: distended Ac Castro MD Nov 27, 2020 13:33
--- NOTE | 2020-11-27 13:42 | Diagnostic Imaging Report ---
Procedure: XRAY Chest 1v Reason for study: Shortness of breath. Comparison films: 11/19/2020. FINDINGS: A single one view chest is obtained. Vascularity is normal. There is marked worsening of bilateral infiltrates. Cardiac and mediastinal silhouette are within normal limits. CP angles are sharp. The bony thorax appear unremarkable. IMPRESSION: Marked worsening of bilateral infiltrates.
--- NOTE | 2020-11-27 14:31 | NUR ---
CASE MANAGEMENT:REVIEW 11/27/20 SI: COVID PNA. AC/CHR RENAL FAILURE 97.0 59 20 144/81 94% ON NRB 15L/50% H/H-13.0/35.8 BUN+24 IS: IV SOLUMEDROL 40MG Q12 MECLIZINE PO Q8HRS AVAPRO PO QD ASA PO QD VIT D PO QD BYSTOLIC PO QD REQUIP PO QD LIPITOR PO QHS PROTONIX PO Q12 HEPARIN SQ Q12 : MED/SURG STATUS 4 EAST DCP: FROM HOME PLAN: FAMILY IS REQUESTING TRANSFER TO [facility]
--- NOTE | 2020-11-27 14:39 | NUR ---
TRANSFER UPDATE CALLED [facility] AND SPOKE WITH GWEN. PER GWEN PATIENT IS ON THEIR LIST FOR TRANSFER BUT SINCE IT'S A LATERAL TRANSFER THE PRIORITY IS LOW. [facility] WILL CALL WHEN THEY CAN ACCOMMODATE THE PATIENT [facility] T: [phone]
--- NOTE | 2020-11-27 14:42 | NUR ---
RADIOLOGY DEPT., CHEST X-RAY DONE.-P.DYE
[2020-11-27 16:00] VITALS: BP 115/50
--- NOTE | 2020-11-27 19:04 | NUR ---
NURSE HAND-OFF REPORT: Important Events on Shift: CXR shows mild worsening of bilateral infiltrates. Respiratory called and wanted to wean patient off of non-rebreather with venturi mask, keep SpO2>92 percent. Patient has COPD histoiry. Patient Status: In no apparent distress. Diet: CCHO medium, can take whole pills. Pending Orders: am labs. Pending Results/Labs:am labs. Pending MD notification:N/A Latest Vital Signs: Temperature 98.1 , Pulse 65 , B/P 115 /50 , Respiratory Rate 20 , O2 SAT 97 , Room Air, O2 Flow Rate 15.0 . Vital Sign Comment: N/A EKG Rhythm: Sinus Rhythm Rhythm change?: N MD Notified?: N - MD Response: Latest Delarosa Fall Score: 55 Fall Risk: High Risk Safety Measures: Call light Within Reach, Bed Alarm Zone 1, Side Rails Side Rails x3, Bed position Low and Locked. Fall Precautions: Yellow Socks Yellow Gown Door Sign Patient Fall Education Report given to Joesph Alexander RN.
--- NOTE | 2020-11-27 19:26 | NUR ---
NURSE NOTES: Pt. received from CAMRON Bach. Pt sleeping, breathing even and unlabored on VM, no indications of respiratory distress, no indications of pain. IV noted left FA 22 saline locked. Pt. anticipating transfer to [facility], per day shift nurse transfer still pending availability. Bed low and locked, side rails x3 up, bed alarm active, and call light in reach.
[2020-11-27] MEDS: Atorvastatin 20mg tab ORAL SCH (21:00)
--- NOTE | 2020-11-27 21:30 | NUR ---
NURSE NOTES: Pt. found in room with venturi mask off. Attempted to educate on need for mask as pt. is visibly tachypneic, short of breath when talking. Pt. anxious and agitated, stating "not today, tomorrow," and ignoring education on need for oxygen delivery method. Pt. yelling and aggressive, continuing to refuse replacement of oxygen delivery system. Also attempted to administer medications and pt. also refusing medication. Spoke with pt. [id number], Celi Benoit, and family member said she will call pt. to speak with him and his anxiety.
--- NOTE | 2020-11-27 22:05 | NUR ---
NURSE NOTES: Spoke with family, family mentioned pt. not at baseline and is more confused and agitated. Family concerned pt. taking medications that can cause confusion and medication list was reviewed. Pt. taking parkinson's medication and family reports not having parkinson's. Requested family to follow up with medication recon and home pharmacy point of contact to verify home meds.
--- NOTE | 2020-11-27 22:05 | NUR ---
NURSE NOTES: Family member called and pt. still refusing placement of venturi mask, pt. tachypnea at rest. Family member aware, charge nurse aware. Dr. Carlson notified, awaiting orders.
--- NOTE | 2020-11-27 22:26 | NUR ---
NURSE NOTES: Notified Dr. Negrete of pt.s confusion, agitation, refusal to place venturi mask and assess pulse oxygen, refusal to take PO medications, and concern with ropinirol. Dr. Negrete aware, with orders to d/c ropinirol and for seroquel. Will follow with plan of care.
[2020-11-28] VITALS: BP_SYST 114; BP_SYST 115; BP_DIAS 40; BP_DIAS 42
--- NOTE | 2020-11-28 00:49 | NUR ---
NURSE NOTES: Pt febrile, refusing to take ordered tylenol to treat fever and refusing PO medications. Temperature 102.1 axillary. Charge nurse aware.
[2020-11-28 04:00] VITALS: BP 141/58
--- NOTE | 2020-11-28 04:14 | NUR ---
NURSE NOTES: Called consulted ID physician Dr. Guerita Talbot to notify of pt.'s temperature 102.6. Dr. Guerita Talbot referred to notify Dr. Jennings. Message left for Dr. Jennings notifying of T102.6, pt. refusal to take PRN tylenol. Awaiting return call and orders. Charge nurse aware.
--- NOTE | 2020-11-28 04:26 | NUR ---
NURSE NOTES: Per Rivka, [facility], no bed availability at this time.
--- NOTE | 2020-11-28 05:08 | Cardiology Report ---
APPROVED REPORT EKG Measurement Heart [id number] <Conclusion> Sinus rhythm with 1st degree AV block Otherwise normal ECG
--- NOTE | 2020-11-28 05:09 | Cardiology Report ---
APPROVED REPORT EXAM: Two-dimensional and M-mode echocardiogram with Doppler and color Doppler. INDICATION Hypertension M-Mode DIMENSIONS IVSd0.8 (0.7-1.1cm)Left Atrium (MM)3.7 (1.6-4.0cm) LVDd4.7 (3.5-5.6cm)Aortic Root2.6 (2.0-3.7cm) PWd0.8 (0.7-1.1cm)Aortic Cusp Exc.1.7 (1.5-2.0cm) IVSs1.1 cmEPSS0.4 (>1.0cm) LVDs3.2 (2.5-4.0cm) PWs1.1 cm <Conclusion> Normal left ventricular chamber size, systolic function and wall motion. Left ventricular ejection fraction estimated to be 55-60 %. No evidence of left ventricular hypertrophy. Anterior Echo-free space, may be due to pericardial fat or effusion. All other cardiac chamber sizes are within normal limits. Focal aortic valve sclerosis with adequate cusp excursion. Thickened mitral valve leaflets with normal excursion. Mitral annulus and aortic root calcification. Pulmonic valve not well visualized. Normal tricuspid valve structure. IVC at normal size and collapsing with respiration. A color flow and spectral Doppler study was performed and revealed: Trace aortic regurgitation. Trace mitral regurgitation. Mitral diastolic velocities suggest reduced left ventricular relaxation c/w mild diastolic dysfunction (Grade I). Mild tricuspid regurgitation. Tricuspid systolic velocities suggests peak right ventricular systolic pressure of 52 mmHg, consistent with moderate pulmonary hypertension. Trace pulmonic regurgitation present.
[2020-11-28] MEDS: Meclizine 25mg tab ORAL SCH ×2 (06:00→14:00)
[2020-11-28] MEDS: NovoLOG Insulin Flexpen SUBQ SCH ×2 (06:08→12:35)
--- NOTE | 2020-11-28 06:08 | NUR ---
NURSE NOTES: Pt. continues to refuse AM medications. Requested pt. to take tylenol for fever but pt. still refusing, non complaint. Attempted to educate pt. on importance of antipyretics but pt. growing agitating and refusing.
--- NOTE | 2020-11-28 06:35 | NUR ---
CASE MANAGEMENT:REVIEW 11/28/20 SI: COVID PNA. AC/CHR RENAL FAILURE 102.6 59 20 141/58 90% ON NRB 10L/50% GLUCOSE+134 IS: IV SOLUMEDROL 40MG Q12 MECLIZINE PO Q8HRS AVAPRO PO QD ASA PO QD VIT D PO QD BYSTOLIC PO QD SEROQUEL PO Q12 LIPITOR PO QHS PROTONIX PO Q12 HEPARIN SQ Q12 : MED/SURG STATUS 4 EAST DCP: FROM HOME PLAN: FAMILY IS REQUESTING TRANSFER TO [facility] ~ PATIENT IS ON THE LIST
--- NOTE | 2020-11-28 06:41 | NUR ---
TRANSFER UPDATE [facility] T: [phone] CALLED [facility] AND SPOKE WITH SANA WHO CONFIRMED PATIENT WAS ON THE LIST BUT NO BEDS AVAILABLE AT THIS TIME
--- NOTE | 2020-11-28 06:44 | NUR ---
NURSE HAND-OFF REPORT: Important Events on Shift:[pt. refusing care, non complaint Dr. Carlson and Dr. Negrete aware. Pt. with temperature and refusing tylenol, Dr. Jennings notified. Family concerned with medication pt. is on, Dr. Carlson and Dr. Negrete aware, discontinued the ropinirol and requested family follow up with home medication list and contact information for pharmacy. ] Patient Status: sleeping Diet: CCHO M Pending Orders: pending tx to [facility] Pending Results/Labs: d dimer CBC BMP Pending MD notification: Dr. Jennings regarding pt. temperature Latest Vital Signs: Temperature 102.6 , Pulse 59 , B/P 141 /58 , Respiratory Rate 20 , O2 SAT 90 , Room Air, O2 Flow Rate 10.0 . Vital Sign Comment: temperature 102.6 EKG Rhythm: Sinus Rhythm Rhythm change?: N MD Notified?: N - MD Response: Latest Delarosa Fall Score: 70 Fall Risk: High Risk Safety Measures: Call light Within Reach, Bed Alarm Zone 2, Side Rails Side Rails x3, Bed position Low and Locked. Fall Precautions: Yellow Socks Yellow Gown Patient Fall Education Report given to . Addendum: 11/28/20 at 0721 by Joesph Alexander RN Hand off given to CAMRON Feliz.
--- NOTE | 2020-11-28 07:23 | Hematology/Onc Progress Note ---
Assessment/Plan Assessment/Plan Assessment and Recs # Thrombocytopenia likely related to underlying covid19++++++ --> smear reviewed, no blasts --> hep and hiv as needed --> supportive care for now --> transfuse prn basis --> ABX --> plt 144-->160-->214 # Anemia of chronic disease --> trend hgb 12 --> no hemolysis # COVID-19 --> per pulm and id recs --> abx ctx/azithro # Elevated ddimer poa --> duplex legs-->neg # Pneumonia --> as above # Renal failure --> ivfs # Dehydration --> goal euvolemia # Lactic acidosis # Dvt ppx heparin sq Appreciate consultation and appreciate consultation Subjective HEENT: Denies: no symptoms, eye pain, blurred vision, tearing, double vision, ear pain, ear discharge, nose pain, nose congestion, throat pain, throat swelling, mouth pain, mouth swelling, other Cardiovascular: Denies: no symptoms, chest pain, edema, irregular heart rate, lightheadedness, palpitations, syncope, other Respiratory: Denies: no symptoms, cough, shortness of breath, SOB with excertion, SOB at rest, sputum, wheezing, other Gastrointestinal/Abdominal: Denies: no symptoms, abdomen distended, abdominal pain, black stools, tarry stools, blood in stool, constipated, diarrhea, difficulty swallowing, nausea, poor appetite, poor fluid intake, rectal bleeding, vomiting, other Genitourinary: Denies: no symptoms, burning, discharge, frequency, flank pain, hematuria, incontinence, pain, urgency, other Neurologic/Psychiatric: Denies: no symptoms, anxiety, depressed, emotional problems, headache, numbness, paresthesia, pre-existing deficit, seizure, tingling, tremors, weakness, other Endocrine: Denies: no symptoms, excessive sweating, flushing, intolerance to cold, intolerance to heat, increased hunger, increased thirst, increased urine, unexplained weight gain, unexplained weight loss, other Allergies: Coded Allergies: No Known Allergies (Unverified , 10/20/12) Subjective 11/24 on 5l oxygen, no bleeding, says is more comfortable, but not fully at baseline 11/25 nonrebreather, labs noted, no bleeding, ene rn, on steriods 11/26 nonrebreather, has been refusing cpap, have ordered for labs in am 11/27 nr 15l, pending transfer to [facility], labs noted 11/28 nr, pending transfer, labs are noted, hgb improving Objective Objective Current Medications Medications (Trade) Dose Ordered Sig/Wilson Route PRN Reason Start Time Stop Time Status Last Admin Dose Admin Acetaminophen (Tylenol) 650 mg Q6H PRN ORAL Temp >100.5 11/20/20 04:30 12/20/20 04:29 11/23/20 23:57 Aspirin (ASA) 81 mg DAILY ORAL 11/21/20 09:00 01/05/21 08:59 11/27/20 08:16 Atorvastatin Calcium (Lipitor) 20 mg BEDTIME ORAL 11/20/20 21:00 02/18/21 20:59 11/27/20 21:00 Dextrose (Dextrose 50%) 25 ml Q30M PRN IV Hypoglycemia 11/20/20 04:30 02/18/21 04:29 Dextrose (Dextrose 50%) 50 ml Q30M PRN IV Hypoglycemia 11/20/20 04:30 02/18/21 04:29 Docusate Sodium (Colace) 100 mg THREE TIMES A DAY ORAL 11/20/20 13:00 12/20/20 12:59 11/27/20 17:10 Guaifenesin/ Dextromethorphan (Robitussin DM Syrup) 15 ml Q6H PRN ORAL For Cough 11/24/20 06:45 02/22/21 06:44 Heparin Sodium (Porcine) (Heparin 5000 units/ml) 5,000 units EVERY 12 HOURS SUBQ 11/20/20 09:00 01/04/21 08:59 11/27/20 08:21 Insulin Aspart (NovoLOG) BEFORE MEALS AND HS SUBQ 11/20/20 06:30 02/18/21 06:29 11/27/20 17:16 Irbesartan (Avapro) 300 mg DAILY ORAL 11/21/20 09:00 02/19/21 08:59 11/27/20 08:18 Meclizine HCl (Antivert) 25 mg EVERY 8 HOURS ORAL 11/21/20 22:00 12/21/20 21:59 11/27/20 13:24 Meclizine HCl (Antivert) 25 mg Q8H PRN ORAL for dizziness 11/20/20 17:30 12/20/20 17:29 Methylprednisolone Sodium Succinate (Solu-MEDROL) 40 mg EVERY 12 HOURS IVP 11/24/20 11:30 02/22/21 11:29 11/27/20 08:19 Nebivolol (Bystolic) 5 mg DAILY ORAL 11/26/20 11:30 12/21/20 08:59 11/27/20 08:16 Pantoprazole (Protonix) 40 mg EVERY 12 HOURS ORAL 11/20/20 21:00 12/20/20 20:59 11/27/20 08:17 Patient Own Medication (Patient's Own Med) 1 ea DAILY ORAL 11/22/20 09:00 12/22/20 08:59 11/27/20 13:23 Patient Own Medication (Patient's Own Med) 1 ea DAILY ORAL 11/22/20 09:00 12/22/20 08:59 11/27/20 13:24 Quetiapine Fumarate (SEROqueL) 50 mg Q12HR ORAL 11/28/20 09:00 01/12/21 08:59 Tamsulosin HCl (Flomax) 0.4 mg TWICE A DAY ORAL 11/20/20 18:00 12/20/20 17:59 11/27/20 17:10 Vitamin D (Vitamin D) 5,000 unit DAILY ORAL 11/21/20 09:00 12/21/20 08:59 11/27/20 08:18 Last 24 Hour Vital Signs Date Time Temp Pulse Resp B/P (MAP) Pulse Ox O2 Delivery O2 Flow Rate FiO2 11/28/20 04:00 59 11/28/20 04:00 102.6 59 20 141/58 (85) 90 11/28/20 00:00 61 11/28/20 00:00 102.1 61 22 114/40 (64) 94 11/28/20 00:00 100.0 55 18 115/42 (66) 91 11/27/20 21:00 Venturi Mask 10.0 11/27/20 20:00 55 11/27/20 19:43 95 Venturi Mask 10.0 50 11/27/20 16:00 65 11/27/20 16:00 98.1 61 20 115/50 (71) 97 11/27/20 12:00 98.2 61 22 145/78 (100) 90 11/27/20 12:00 65 11/27/20 09:00 Non-Rebreather 15.0 11/27/20 08:18 155/80 11/27/20 08:00 56 11/27/20 08:00 98.0 70 22 155/80 (105) 94 11/27/20 07:00 90 Venturi Mask 10.0 50 11/27/20 04:00 62 11/27/20 04:00 97.9 62 24 147/73 (97) 93 11/27/20 00:00 56 11/27/20 00:00 98.2 56 26 126/56 (79) 98 11/26/20 21:00 Non-Rebreather 15.0 11/26/20 20:00 98.5 72 22 151/67 (95) 95 11/26/20 20:00 72 11/26/20 19:29 94 Non-Rebreather 15.0 100 11/26/20 16:00 98.1 80 20 136/66 (89) 96 11/26/20 15:44 71 11/26/20 12:00 98.0 66 18 159/73 (101) 95 11/26/20 09:00 Non-Rebreather 15.0 11/26/20 08:18 156/119 11/26/20 08:00 97.0 54 18 156/119 (131) 95 Intake and Output 11/27/20 11/28/20 19:00 07:00 Intake Total 360 ml 260 ml Balance 360 ml 260 ml Intake Oral 360 ml Other 260 ml # Voids 3 2 Labs Test 11/25/20 16:59 11/26/20 07:45 11/26/20 12:09 11/26/20 19:44 White Blood Count 9.1 K/UL (4.8-10.8) Red Blood Count 3.69 M/UL (4.70-6.10) Hemoglobin 12.6 G/DL (14.2-18.0) Hematocrit 34.8 % (42.0-52.0) Mean Corpuscular Volume 94 FL (80-99) Mean Corpuscular Hemoglobin 34.3 PG (27.0-31.0) Mean Corpuscular Hemoglobin Concent 36.3 G/DL (32.0-36.0) Red Cell Distribution Width 14.0 % (11.6-14.8) Platelet Count 206 K/UL (150-450) Mean Platelet Volume 9.3 FL (6.5-10.1) Neutrophils (%) (Auto) % (45.0-75.0) Lymphocytes (%) (Auto) % (20.0-45.0) Monocytes (%) (Auto) % (1.0-10.0) Eosinophils (%) (Auto) % (0.0-3.0) Basophils (%) (Auto) % (0.0-2.0) Differential Total Cells Counted 100 Neutrophils % (Manual) 88 % (45-75) Lymphocytes % (Manual) 9 % (20-45) Monocytes % (Manual) 3 % (1-10) Eosinophils % (Manual) 0 % (0-3) Basophils % (Manual) 0 % (0-2) Band Neutrophils 0 % (0-8) Platelet Estimate Adequate Platelet Morphology Normal Hypochromasia 1+ Anisocytosis 1+ Sodium Level 139 MMOL/L (136-145) Potassium Level 4.1 MMOL/L (3.5-5.1) Chloride Level 106 MMOL/L (98-107) Carbon Dioxide Level 27 MMOL/L (21-32) Anion Gap 6 mmol/L (5-15) Blood Urea Nitrogen 26 mg/dL (7-18) Creatinine 1.2 MG/DL (0.55-1.30) Estimat Glomerular Filtration Rate 57.5 mL/min (>60) Glucose Level 154 MG/DL (74-106) Calcium Level 8.2 MG/DL (8.5-10.1) POC Whole Blood Glucose 125 MG/DL (74-106) Test 11/27/20 03:30 11/27/20 06:06 11/27/20 11:49 11/27/20 16:43 White Blood Count 8.2 K/UL (4.8-10.8) Red Blood Count 3.79 M/UL (4.70-6.10) Hemoglobin 13.0 G/DL (14.2-18.0) Hematocrit 35.8 % (42.0-52.0) Mean Corpuscular Volume 94 FL (80-99) Mean Corpuscular Hemoglobin 34.3 PG (27.0-31.0) Mean Corpuscular Hemoglobin Concent 36.3 G/DL (32.0-36.0) Red Cell Distribution Width 13.4 % (11.6-14.8) Platelet Count 214 K/UL (150-450) Mean Platelet Volume 8.6 FL (6.5-10.1) Neutrophils (%) (Auto) % (45.0-75.0) Lymphocytes (%) (Auto) % (20.0-45.0) Monocytes (%) (Auto) % (1.0-10.0) Eosinophils (%) (Auto) % (0.0-3.0) Basophils (%) (Auto) % (0.0-2.0) Differential Total Cells Counted 100 Neutrophils % (Manual) 85 % (45-75) Lymphocytes % (Manual) 10 % (20-45) Monocytes % (Manual) 5 % (1-10) Eosinophils % (Manual) 0 % (0-3) Basophils % (Manual) 0 % (0-2) Band Neutrophils 0 % (0-8) Platelet Estimate Adequate Platelet Morphology Normal Red Blood Cell Morphology Normal Sodium Level 138 MMOL/L (136-145) Potassium Level 4.9 MMOL/L (3.5-5.1) Chloride Level 105 MMOL/L (98-107) Carbon Dioxide Level 26 MMOL/L (21-32) Anion Gap 7 mmol/L (5-15) Blood Urea Nitrogen 24 mg/dL (7-18) Creatinine 1.2 MG/DL (0.55-1.30) Estimat Glomerular Filtration Rate 57.5 mL/min (>60) Glucose Level 138 MG/DL (74-106) Calcium Level 8.4 MG/DL (8.5-10.1) Pro-B-Type Natriuretic Peptide 2908 pg/mL (0-125) Thyroid Stimulating Hormone (TSH) 0.522 uiU/mL (0.358-3.740) Free Thyroxine 1.41 NG/DL (0.76-1.46) POC Whole Blood Glucose 133 MG/DL (74-106) 172 MG/DL (74-106) 159 MG/DL (74-106) Test 11/27/20 19:56 11/28/20 05:56 POC Whole Blood Glucose 131 MG/DL (74-106) 134 MG/DL (74-106) Height (Feet): 5 Height (Inches): 8.00 Weight (Pounds): 190 Objective Physical Exam Sp02 EP Interpretation: reviewed, normal General: no apparent distress, alert, GCS 15, non-toxic Heent: hearing grossly normal, normal pharynx, no angioedema, normal voice Neck: full range of motion, supple/symm/no masses Respiratory: chest non-tender, lungs clear, normal breath sounds Cardiovasc: regular rate, rhythm, no edema Gastrointestinal: normal bowel sounds, non tender, soft, non-distended, no guarding, no rebound Rectal: deferred Musculoskeletal: back normal, normal range of motion Neurologic: alert, motor strength/tone normal Psychiatric: judgement/insight normal, memory normal Skin: no rash, normal color Gabriel Orozco MD Nov 28, 2020 07:23
[2020-11-28 07:33] LABS: HEMATOCRIT 37.3 % (42.0-52.0); HEMOGLOBIN 12.6 G/DL (14.2-18.0); MEAN CORPUSCULAR VOLUME 93 FL (80-99); PLATELET COUNT 200 K/UL (150-450); RED BLOOD COUNT 3.99 M/UL (4.70-6.10); RED CELL DISTRIBUTION WIDTH 12.9 % (11.6-14.8); WHITE BLOOD COUNT 5.9 K/UL (4.8-10.8)
--- NOTE | 2020-11-28 07:42 | NUR ---
NURSE NOTES: Report received from Joesph LYON. Patient seen on rounds, asleep but easily rousable, on O2 at 15lpm via NRM with no signs of distress. Nurse reports pt had a fever last night Tmax 102F, but pt refused PO Tylenol, made aware. Nurse also reports pt noted to be more confused, agitated; was non-compliant and refused to take meds last night, Drs. Carlson and Penelope aware. PIV on left forearm G.22 patent and intact. Pt uses urinal at bedside for continence needs. Bed low and locked, siderails up x2, zone alarms on 2. Will continue with plan of care. Addendum: 11/28/20 at 1059 by Trini Traore RN NURSE NOTES: Dr. Orozco notified of d-dimer results today 10.9. Awaiting response.
[2020-11-28 08:00] VITALS: BP 139/57
[2020-11-28 08:10] LABS: CALCIUM 8.7 MG/DL (8.5-10.1); CREATININE 1.5 MG/DL (0.55-1.30); POTASSIUM 4.4 MMOL/L (3.5-5.1)
[2020-11-28] MEDS: Solu-MEDROL 40mg Inj IVP SCH (08:46)
[2020-11-28] MEDS: Bystolic 2.5mg Tab ORAL SCH (08:46)
[2020-11-28] MEDS: Tamsulosin 0.4mg cap ORAL SCH (08:47)
[2020-11-28] MEDS: Aspirin Baby 81mg ORAL SCH (08:48)
[2020-11-28] MEDS: Docusate 100mg cap ORAL SCH ×2 (08:48→13:00)
[2020-11-28] MEDS: Irbesartan 150mg tablet ORAL SCH (08:49)
[2020-11-28] MEDS: Vitamin D 1000 units Tab ORAL SCH (08:50)
[2020-11-28] MEDS: TRADJENTA 5 MG ORAL SCH (09:00)
--- NOTE | 2020-11-28 09:00 | NUR ---
NURSE NOTES: Spoke with daughter Priscilla, who provided me with pharmacy number for verification of medication reconciliation. Med list faxed by [facility]. Wm ZELAYA made aware.
--- NOTE | 2020-11-28 09:00 | General Progress Note ---
Subjective Constitutional: Reports: weakness Allergies: Coded Allergies: No Known Allergies (Unverified , 10/20/12) All Systems: reviewed and negative except above Subjective o2 mask calm in bed Objective Last 24 Hour Vital Signs Date Time Temp Pulse Resp B/P (MAP) Pulse Ox O2 Delivery O2 Flow Rate FiO2 11/28/20 04:00 59 11/28/20 04:00 102.6 59 20 141/58 (85) 90 11/28/20 00:00 61 11/28/20 00:00 102.1 61 22 114/40 (64) 94 11/28/20 00:00 100.0 55 18 115/42 (66) 91 11/27/20 21:00 Venturi Mask 10.0 11/27/20 20:00 55 11/27/20 19:43 95 Venturi Mask 10.0 50 11/27/20 16:00 65 11/27/20 16:00 98.1 61 20 115/50 (71) 97 11/27/20 12:00 98.2 61 22 145/78 (100) 90 11/27/20 12:00 65 11/27/20 09:00 Non-Rebreather 15.0 Intake and Output 11/27/20 11/28/20 19:00 07:00 Intake Total 360 ml 260 ml Balance 360 ml 260 ml Intake Oral 360 ml Other 260 ml # Voids 3 2 Laboratory Tests 11/27/20 11:49: POC Whole Blood Glucose 172H 11/27/20 16:43: POC Whole Blood Glucose 159H 11/27/20 19:56: POC Whole Blood Glucose 131H 11/28/20 05:56: POC Whole Blood Glucose 134H 11/28/20 07:03: White Blood Count 5.9, Red Blood Count 3.99L, Hemoglobin 12.6L, Hematocrit 37.3L , Mean Corpuscular Volume 93, Mean Corpuscular Hemoglobin 31.4H, Mean Corpuscular Hemoglobin Concent 33.6, Red Cell Distribution Width 12.9, Platelet Count 200, Mean Platelet Volume 9.1, Neutrophils (%) (Auto) , Lymphocytes (%) (Auto) , Monocytes (%) (Auto) , Eosinophils (%) (Auto) , Basophils (%) (Auto) , Neutrophils % (Manual) [Pending], Lymphocytes % (Manual) [Pending], Platelet Estimate [Pending], Platelet Morphology [Pending], D-Dimer [Pending], Sodium Level 138, Potassium Level 4.4, Chloride Level 104, Carbon Dioxide Level 27, Anion Gap 7, Blood Urea Nitrogen 27H, Creatinine 1.5H, Estimat Glomerular Filtration Rate 44.5, Glucose Level 135H, Calcium Level 8.7 Height (Feet): 5 Height (Inches): 8.00 Weight (Pounds): 190 General Appearance: lethargic EENT: normal ENT inspection Neck: normal alignment Cardiovascular: normal peripheral pulses, normal rate, regular rhythm Respiratory/Chest: chest wall non-tender, lungs clear, normal breath sounds Abdomen: normal bowel sounds, non tender, soft Extremities: normal inspection Edema: no edema noted Arm (L), no edema noted Arm (R), no edema noted Leg (L), no edema noted Leg (R), no edema noted Pedal (L), no edema noted Pedal (R), no edema noted Generalized Neurologic: motor weakness Skin: normal pigmentation, warm/dry Assessment/Plan Problem List: (1) HTN (hypertension) ICD Codes: I10 - Essential (primary) hypertension SNOMED: 91958790 (2) Diabetes ICD Codes: E11.9 - Type 2 diabetes mellitus without complications SNOMED: 24684746 (3) Weak ICD Codes: R53.1 - Weakness SNOMED: 50499937 (4) Fever ICD Codes: R50.9 - Fever, unspecified SNOMED: 739561127 (5) COVID-19 ICD Codes: U07.1 - COVID-19 SNOMED: 323392207 (6) Renal failure ICD Codes: N19 - Unspecified kidney failure SNOMED: 27998188 (7) Pneumonia ICD Codes: J18.9 - Pneumonia, unspecified organism SNOMED: 193147136 (8) Dehydration ICD Codes: E86.0 - Dehydration SNOMED: 97032151 (9) CVA (cerebral infarction) ICD Codes: I63.9 - CVA (cerebral infarction) SNOMED: 005830091 Status: unchanged Assessment/Plan: o2 pulm tx abx bp bs control cbc bmp am transfer to [facility] when bed available per family request Ziggy Carlson DO Nov 28, 2020 09:00
[2020-11-28] MEDS: Heparin 5000 units/ml inj SUBQ SCH (09:37)
--- NOTE | 2020-11-28 10:42 | Infectious Diseases Prog Note ---
Assessment/Plan Assessment/Plan antibiotics :none A 1. covid 19 pneumonia on 10 liters O2 with 90 % saturation s/p ivermectin 2. COPD 3. hyperlipidemia 4. BPH P 1. continue solumedrol taper dose 2. continue isolation Subjective Constitutional: Denies: fever, chills Respiratory: Reports: shortness of breath; Denies: dry cough Gastrointestinal/Abdominal: Denies: nausea, vomiting, diarrhea Musculoskeletal: Denies: pain Allergies: Coded Allergies: No Known Allergies (Unverified , 10/20/12) Objective Last 24 Hour Vital Signs Date Time Temp Pulse Resp B/P (MAP) Pulse Ox O2 Delivery O2 Flow Rate FiO2 11/28/20 08:49 139/57 11/28/20 04:00 59 11/28/20 04:00 102.6 59 20 141/58 (85) 90 11/28/20 00:00 61 11/28/20 00:00 102.1 61 22 114/40 (64) 94 11/28/20 00:00 100.0 55 18 115/42 (66) 91 11/27/20 21:00 Venturi Mask 10.0 11/27/20 20:00 55 11/27/20 19:43 95 Venturi Mask 10.0 50 11/27/20 16:00 65 11/27/20 16:00 98.1 61 20 115/50 (71) 97 11/27/20 12:00 98.2 61 22 145/78 (100) 90 11/27/20 12:00 65 Height (Feet): 5 Height (Inches): 8.00 Weight (Pounds): 190 Laboratory Tests Test 11/27/20 11:49 11/27/20 16:43 11/27/20 19:56 11/28/20 05:56 POC Whole Blood Glucose 172 MG/DL (74-106) H 159 MG/DL (74-106) H 131 MG/DL (74-106) H 134 MG/DL (74-106) H Test 11/28/20 07:03 White Blood Count 5.9 K/UL (4.8-10.8) Red Blood Count 3.99 M/UL (4.70-6.10) L Hemoglobin 12.6 G/DL (14.2-18.0) L Hematocrit 37.3 % (42.0-52.0) L Mean Corpuscular Volume 93 FL (80-99) Mean Corpuscular Hemoglobin 31.4 PG (27.0-31.0) H Mean Corpuscular Hemoglobin Concent 33.6 G/DL (32.0-36.0) Red Cell Distribution Width 12.9 % (11.6-14.8) Platelet Count 200 K/UL (150-450) Mean Platelet Volume 9.1 FL (6.5-10.1) Neutrophils (%) (Auto) % (45.0-75.0) Lymphocytes (%) (Auto) % (20.0-45.0) Monocytes (%) (Auto) % (1.0-10.0) Eosinophils (%) (Auto) % (0.0-3.0) Basophils (%) (Auto) % (0.0-2.0) Differential Total Cells Counted 100 Neutrophils % (Manual) 89 % (45-75) H Lymphocytes % (Manual) 7 % (20-45) L Monocytes % (Manual) 4 % (1-10) Eosinophils % (Manual) 0 % (0-3) Basophils % (Manual) 0 % (0-2) Band Neutrophils 0 % (0-8) Platelet Estimate Adequate Platelet Morphology Normal Hypochromasia 1+ D-Dimer 10.90 mg/L FEU (0.00-0.49) H Sodium Level 138 MMOL/L (136-145) Potassium Level 4.4 MMOL/L (3.5-5.1) Chloride Level 104 MMOL/L (98-107) Carbon Dioxide Level 27 MMOL/L (21-32) Anion Gap 7 mmol/L (5-15) Blood Urea Nitrogen 27 mg/dL (7-18) H Creatinine 1.5 MG/DL (0.55-1.30) H Estimat Glomerular Filtration Rate 44.5 mL/min (>60) Glucose Level 135 MG/DL (74-106) H Calcium Level 8.7 MG/DL (8.5-10.1) Current Medications Medications (Trade) Dose Ordered Sig/Wilson Route PRN Reason Start Time Stop Time Status Last Admin Dose Admin Acetaminophen (Tylenol) 650 mg Q6H PRN ORAL Temp >100.5 11/20/20 04:30 12/20/20 04:29 11/23/20 23:57 Aspirin (ASA) 81 mg DAILY ORAL 11/21/20 09:00 01/05/21 08:59 11/28/20 08:48 Atorvastatin Calcium (Lipitor) 20 mg BEDTIME ORAL 11/20/20 21:00 02/18/21 20:59 11/27/20 21:00 Dextrose (Dextrose 50%) 25 ml Q30M PRN IV Hypoglycemia 11/20/20 04:30 02/18/21 04:29 Dextrose (Dextrose 50%) 50 ml Q30M PRN IV Hypoglycemia 11/20/20 04:30 02/18/21 04:29 Docusate Sodium (Colace) 100 mg THREE TIMES A DAY ORAL 11/20/20 13:00 12/20/20 12:59 11/28/20 08:48 Guaifenesin/ Dextromethorphan (Robitussin DM Syrup) 15 ml Q6H PRN ORAL For Cough 11/24/20 06:45 02/22/21 06:44 Heparin Sodium (Porcine) (Heparin 5000 units/ml) 5,000 units EVERY 12 HOURS SUBQ 11/20/20 09:00 01/04/21 08:59 11/28/20 09:37 Insulin Aspart (NovoLOG) BEFORE MEALS AND HS SUBQ 11/20/20 06:30 02/18/21 06:29 11/27/20 17:16 Irbesartan (Avapro) 300 mg DAILY ORAL 11/21/20 09:00 02/19/21 08:59 11/28/20 08:49 Meclizine HCl (Antivert) 25 mg EVERY 8 HOURS ORAL 11/21/20 22:00 12/21/20 21:59 11/27/20 13:24 Meclizine HCl (Antivert) 25 mg Q8H PRN ORAL for dizziness 11/20/20 17:30 12/20/20 17:29 Methylprednisolone Sodium Succinate (Solu-MEDROL) 40 mg EVERY 12 HOURS IVP 11/24/20 11:30 02/22/21 11:29 11/28/20 08:46 Nebivolol (Bystolic) 5 mg DAILY ORAL 11/26/20 11:30 12/21/20 08:59 11/28/20 08:46 Pantoprazole (Protonix) 40 mg EVERY 12 HOURS ORAL 11/20/20 21:00 12/20/20 20:59 11/28/20 08:47 Patient Own Medication (Patient's Own Med) 1 ea DAILY ORAL 11/22/20 09:00 12/22/20 08:59 11/28/20 09:00 Patient Own Medication (Patient's Own Med) 1 ea DAILY ORAL 11/22/20 09:00 12/22/20 08:59 11/28/20 09:00 Quetiapine Fumarate (SEROqueL) 50 mg Q12HR ORAL 11/28/20 09:00 01/12/21 08:59 Tamsulosin HCl (Flomax) 0.4 mg TWICE A DAY ORAL 11/20/20 18:00 12/20/20 17:59 11/28/20 08:47 Vitamin D (Vitamin D) 5,000 unit DAILY ORAL 11/21/20 09:00 12/21/20 08:59 11/28/20 08:50 Eliud Jennings MD Nov 28, 2020 10:42
--- NOTE | 2020-11-28 11:01 | NUR ---
NURSE NOTES: Dr. Jennings saw pt on rounds, notified of febrile episode last night T101.2F and this morning T100.6F. Awaiting orders.
--- NOTE | 2020-11-28 11:49 | Cardiac Electrophysiology PN ---
Assessment/Plan Assessment/Plan 1. 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 2. HTN on Avapro 300 and Bystolic 5 daily now 3. Respiratory failure due to Covid, Echo Nl EF on NRBFM 4. Thrombocytopenia, Resolved FU Dr Clarke 5. Hyperlipidemia On Lipitor DW RN and pts daughter Awaiting bed at [facility] Subjective Subjective In SR with first degree AVB on 15 liter NRB FM. Was accepted to [facility] pending bed at daughters request who is an RN at [facility] Objective Last 24 Hour Vital Signs Date Time Temp Pulse Resp B/P (MAP) Pulse Ox O2 Delivery O2 Flow Rate FiO2 11/28/20 09:00 Non-Rebreather 15.0 11/28/20 08:49 139/57 11/28/20 08:00 53 11/28/20 08:00 99.9 55 22 139/57 (84) 98 11/28/20 04:00 59 11/28/20 04:00 102.6 59 20 141/58 (85) 90 11/28/20 00:00 61 11/28/20 00:00 102.1 61 22 114/40 (64) 94 11/28/20 00:00 100.0 55 18 115/42 (66) 91 11/27/20 21:00 Venturi Mask 10.0 11/27/20 20:00 55 11/27/20 19:43 95 Venturi Mask 10.0 50 11/27/20 16:00 65 11/27/20 16:00 98.1 61 20 115/50 (71) 97 11/27/20 12:00 98.2 61 22 145/78 (100) 90 11/27/20 12:00 65 Intake and Output 11/27/20 11/28/20 19:00 07:00 Intake Total 360 ml 260 ml Balance 360 ml 260 ml Intake Oral 360 ml Other 260 ml # Voids 3 2 Laboratory Tests Test 11/27/20 11:49 11/27/20 16:43 11/27/20 19:56 11/28/20 05:56 POC Whole Blood Glucose 172 MG/DL (74-106) H 159 MG/DL (74-106) H 131 MG/DL (74-106) H 134 MG/DL (74-106) H Test 11/28/20 07:03 11/28/20 11:39 White Blood Count 5.9 K/UL (4.8-10.8) Red Blood Count 3.99 M/UL (4.70-6.10) L Hemoglobin 12.6 G/DL (14.2-18.0) L Hematocrit 37.3 % (42.0-52.0) L Mean Corpuscular Volume 93 FL (80-99) Mean Corpuscular Hemoglobin 31.4 PG (27.0-31.0) H Mean Corpuscular Hemoglobin Concent 33.6 G/DL (32.0-36.0) Red Cell Distribution Width 12.9 % (11.6-14.8) Platelet Count 200 K/UL (150-450) Mean Platelet Volume 9.1 FL (6.5-10.1) Neutrophils (%) (Auto) % (45.0-75.0) Lymphocytes (%) (Auto) % (20.0-45.0) Monocytes (%) (Auto) % (1.0-10.0) Eosinophils (%) (Auto) % (0.0-3.0) Basophils (%) (Auto) % (0.0-2.0) Differential Total Cells Counted 100 Neutrophils % (Manual) 89 % (45-75) H Lymphocytes % (Manual) 7 % (20-45) L Monocytes % (Manual) 4 % (1-10) Eosinophils % (Manual) 0 % (0-3) Basophils % (Manual) 0 % (0-2) Band Neutrophils 0 % (0-8) Platelet Estimate Adequate Platelet Morphology Normal Hypochromasia 1+ D-Dimer 10.90 mg/L FEU (0.00-0.49) H Sodium Level 138 MMOL/L (136-145) Potassium Level 4.4 MMOL/L (3.5-5.1) Chloride Level 104 MMOL/L (98-107) Carbon Dioxide Level 27 MMOL/L (21-32) Anion Gap 7 mmol/L (5-15) Blood Urea Nitrogen 27 mg/dL (7-18) H Creatinine 1.5 MG/DL (0.55-1.30) H Estimat Glomerular Filtration Rate 44.5 mL/min (>60) Glucose Level 135 MG/DL (74-106) H Calcium Level 8.7 MG/DL (8.5-10.1) POC Whole Blood Glucose 160 MG/DL (74-106) H Objective HEENT: mucous membranes moist Respiratory/Chest: other - Oxygen by NRB mask, 15 L/min Cardiovascular: normal rate Abdomen: soft, non tender Neurologic/Psychiatric: alert, responsive Maxi Apodaca MD Nov 28, 2020 11:49
[2020-11-28 12:00] VITALS: BP 130/54
--- NOTE | 2020-11-28 12:29 | NUR ---
[employer] SAW OPERATOR NOTES SPOKE WITH FLAQUITA FROM [facility] PT ACCEPTED TO [address] [place] [address] [address]. [facility] TO TRANSPORT THE PT WITH A ETA 1400. NURSE TO CALL REPORT @ 1330 TO [phone].NURSE MADE AWARE.
--- NOTE | 2020-11-28 13:09 | Discharge Summary ---
Discharge Summary Discharge Summary _ Date of admission: 11/19/2020 Date of discharge: 11/28/[address] Carlson History of Present Illness and Brief Hospital Course Mr. Harmon is an 85-year-old male with past medical history of obstructive sleep apnea, COPD, and diabetes mellitus, who presented to the ED at [facility] for evaluation of generalized weakness and severe fatigue for a few days. Patient reported testing positive for COVID-19 on 11/14/2020 from an outside source. His repeat COVID-19 test via rapid gene assay in the ER was positive. On the initial chest x-ray, he did have a mild multifocal pneumonia. He was treated with ceftriaxone and azithromycin for empiric pneumonia coverage. He was also given Decadron and Lovenox. He was admitted to the hospital for further monitoring and evaluation/treatment given high risk for rapid deterioration. Patient denied shortness of breath, chest pain, abdominal pain, nausea/vomiting, cough or diarrhea. For his history of sleep apnea, he reported using CPAP at night. Given his diagnosis of COVID-19 pneumonia with history of fever, patient was continued on broad-spectrum antibiotics for pneumonia coverage. His respiration was stable on room air initially. However, patient's saturation began to drop and he was ultimately on nonrebreather until the date of discharge/transfer. Multiple attempts of weaning trial were made, but patient did not tolerate lower FiO2. Given his respiratory distress, patient was evaluated with 2D echocardiogram which revealed left ventricular ejection fraction of 55 to 60%. Patient continually had increasing oxygen requirement and his supplemental oxygen delivery was adjusted as needed. Patient initially did well on room air. However, his supplemental oxygen was elevated with Venturi mask then eventually to nonrebreather mask at 15 L. For his COVID-19, initial doses of ceftriaxone and azithromycin were discontinued. He was continued on dexamethasone and he also received 1 dose of ivermectin. Dexamethasone was soon switched to Solu-Medrol. During his hospitalization, CPAP was offered at night to support his ventilation during nighttime. However, patient refused to use CPAP at the hospital stating that the CPAP at this facility is a facemask type which is uncomfortable and dries his eyes, whereas his home CPAP is nasal delivery and is more comfortable. Patient remained on nonrebreather mask throughout the night and during the day for the duration of his hospitalization. Given his elevated creatinine on admission, he was started on slow hydration. His renal parameters and electrolytes were closely monitored. Any nephrotoxins were avoided. In a few days, his creatinine level improved and IV fluids and midodrine were stopped. In light of elevated D-dimer, he was evaluated with duplex venous ultrasound of lower extremities which was negative for DVT. Per family request, patient is awaiting transfer to [facility]. Patient is medically stable for transfer at this time. Consultants: Hematology oncology Dr. Orozco Infectious disease Dr. Talbot Nephrology Dr. Moyer Pulmonology Dr. Negrete Discharge Condition Stable Final diagnoses Tachycardia Hypertension Respiratory failure secondary to COVID-19 COVID-19 pneumonia Thrombocytopenia Hyperlipidemia History of BPH Dehydration Acute on chronic renal failure Lactic acidosis Diabetes mellitus Weakness Fever History of CVA History of obstructive sleep apnea, on CPAP at night I have been assigned to dictate discharge summary for this account. Wm Marx Nov 28, 2020 13:09
--- NOTE | 2020-11-28 13:13 | Pulmonology Progress Note ---
Subjective ROS Limited/Unobtainable: No Interval Events: none major reported per nursing Constitutional: Denies: fever, chills HEENT: Repors: no symptoms Respiratory: Reports: shortness of breath Cardiovascular: Reports: no symptoms Gastrointestinal/Abdominal: Denies: nausea, vomiting, diarrhea Musculoskeletal: Denies: pain Allergies: Coded Allergies: No Known Allergies (Unverified , 10/20/12) All Systems: reviewed and negative except above Objective Last 24 Hour Vital Signs Date Time Temp Pulse Resp B/P (MAP) Pulse Ox O2 Delivery O2 Flow Rate FiO2 11/28/20 12:00 100.6 58 22 130/54 (79) 98 11/28/20 12:00 60 11/28/20 09:00 Non-Rebreather 15.0 11/28/20 08:49 139/57 11/28/20 08:00 53 11/28/20 08:00 99.9 55 22 139/57 (84) 98 11/28/20 04:00 59 11/28/20 04:00 102.6 59 20 141/58 (85) 90 11/28/20 00:00 61 11/28/20 00:00 102.1 61 22 114/40 (64) 94 11/28/20 00:00 100.0 55 18 115/42 (66) 91 11/27/20 21:00 Venturi Mask 10.0 11/27/20 20:00 55 11/27/20 19:43 95 Venturi Mask 10.0 50 11/27/20 16:00 65 11/27/20 16:00 98.1 61 20 115/50 (71) 97 Intake and Output 11/27/20 11/28/20 19:00 07:00 Intake Total 360 ml 260 ml Balance 360 ml 260 ml Intake Oral 360 ml Other 260 ml # Voids 3 2 General Appearance: no acute distress HEENT: atraumatic Respiratory: lungs clear Cardiovascular: normal rate Abdomen: soft, non tender Laboratory Tests 11/27/20 16:43: POC Whole Blood Glucose 159H 11/27/20 19:56: POC Whole Blood Glucose 131H 11/28/20 05:56: POC Whole Blood Glucose 134H 11/28/20 07:03: White Blood Count 5.9, Red Blood Count 3.99L, Hemoglobin 12.6L, Hematocrit 37.3L , Mean Corpuscular Volume 93, Mean Corpuscular Hemoglobin 31.4H, Mean Corpuscular Hemoglobin Concent 33.6, Red Cell Distribution Width 12.9, Platelet Count 200, Mean Platelet Volume 9.1, Neutrophils (%) (Auto) , Lymphocytes (%) (Auto) , Monocytes (%) (Auto) , Eosinophils (%) (Auto) , Basophils (%) (Auto) , Differential Total Cells Counted 100, Neutrophils % (Manual) 89H, Lymphocytes % (Manual) 7L, Monocytes % (Manual) 4, Eosinophils % (Manual) 0, Basophils % (Manual) 0, Band Neutrophils 0, Platelet Estimate Adequate, Platelet Morphology Normal, Hypochromasia 1+, D-Dimer 10.90H, Sodium Level 138, Potassium Level 4.4, Chloride Level 104, Carbon Dioxide Level 27, Anion Gap 7, Blood Urea Nitrogen 27H, Creatinine 1.5H, Estimat Glomerular Filtration Rate 44.5, Glucose Level 135H, Calcium Level 8.7 11/28/20 11:39: POC Whole Blood Glucose 160H Current Medications Medications (Trade) Dose Ordered Sig/Wilson Route PRN Reason Start Time Stop Time Status Last Admin Dose Admin Acetaminophen (Tylenol) 650 mg Q6H PRN ORAL Temp >100.5 11/20/20 04:30 12/20/20 04:29 11/23/20 23:57 Aspirin (ASA) 81 mg DAILY ORAL 11/21/20 09:00 01/05/21 08:59 11/28/20 08:48 Atorvastatin Calcium (Lipitor) 20 mg BEDTIME ORAL 11/20/20 21:00 02/18/21 20:59 11/27/20 21:00 Dextrose (Dextrose 50%) 25 ml Q30M PRN IV Hypoglycemia 11/20/20 04:30 02/18/21 04:29 Dextrose (Dextrose 50%) 50 ml Q30M PRN IV Hypoglycemia 11/20/20 04:30 02/18/21 04:29 Docusate Sodium (Colace) 100 mg THREE TIMES A DAY ORAL 11/20/20 13:00 12/20/20 12:59 11/28/20 08:48 Guaifenesin/ Dextromethorphan (Robitussin DM Syrup) 15 ml Q6H PRN ORAL For Cough 11/24/20 06:45 02/22/21 06:44 Heparin Sodium (Porcine) (Heparin 5000 units/ml) 5,000 units EVERY 12 HOURS SUBQ 11/20/20 09:00 01/04/21 08:59 11/28/20 09:37 Insulin Aspart (NovoLOG) BEFORE MEALS AND HS SUBQ 11/20/20 06:30 02/18/21 06:29 11/28/20 12:35 Irbesartan (Avapro) 300 mg DAILY ORAL 11/21/20 09:00 02/19/21 08:59 11/28/20 08:49 Meclizine HCl (Antivert) 25 mg EVERY 8 HOURS ORAL 11/21/20 22:00 12/21/20 21:59 11/27/20 13:24 Meclizine HCl (Antivert) 25 mg Q8H PRN ORAL for dizziness 11/20/20 17:30 12/20/20 17:29 Methylprednisolone Sodium Succinate (Solu-MEDROL) 40 mg DAILY IVP 11/29/20 09:00 02/27/21 08:59 Nebivolol (Bystolic) 5 mg DAILY ORAL 11/26/20 11:30 12/21/20 08:59 11/28/20 08:46 Pantoprazole (Protonix) 40 mg EVERY 12 HOURS ORAL 11/20/20 21:00 12/20/20 20:59 11/28/20 08:47 Patient Own Medication (Patient's Own Med) 1 ea DAILY ORAL 11/22/20 09:00 12/22/20 08:59 11/28/20 09:00 Patient Own Medication (Patient's Own Med) 1 ea DAILY ORAL 11/22/20 09:00 12/22/20 08:59 11/28/20 09:00 Quetiapine Fumarate (SEROqueL) 50 mg Q12HR ORAL 11/28/20 09:00 01/12/21 08:59 Tamsulosin HCl (Flomax) 0.4 mg TWICE A DAY ORAL 11/20/20 18:00 12/20/20 17:59 11/28/20 08:47 Vitamin D (Vitamin D) 5,000 unit DAILY ORAL 11/21/20 09:00 12/21/20 08:59 11/28/20 08:50 Assessment/Plan Assessment/Plan 1. COVID-19 pneumonia with history of fever (T-max= 101.5) -on 15L NRB saturating at 94-95%; will attempt weaning again with Venturi mask - s/p abx, dexamethasone, ivermectin x1 dose - on Solu-Medrol - check repeat CXR and D-Dimer, increase Lovenox if D-dimer more elevated 2. Weakness - seen by PT 3. SOUMYA -IV fluids -Monitor renal parameters 4. Diabetes mellitus with hyperglycemia -On insulin 5. Elevated inflammatory markers -On heparin, given elevated BUN, Cr - Venous duplex negative for DVT - on heparin subQ q12h 6. Obstructive sleep apnea -Patient reports using CPAP at night at home -ordered CPAP at night with the setting of 12 - pt has been refusing CPAP because it's uncomfortable and drying his eyes - Continue NRB at night unless he feels comfortable using CPAP 10. New onset fever - Gozk=975.4; resolved - no leukocytosis - monitor Planned for transfer to [facility] per family request today The care for this patient was discussed with my supervising physician. Time spent for this case was approximately 31 minutes. Wm Marx Nov 28, 2020 13:13
[2020-11-28] MEDS ORDERED: COLACE100 MG ORAL (13:42)
[2020-11-28] MEDS ORDERED: FLOMAX0.4 MG ORAL (13:43)
[2020-11-28] MEDS ORDERED: NOVOLIN R100 UNIT/1 SUBQ (13:43)
[2020-11-28] MEDS ORDERED: LIPITOR20 MG ORAL (13:43)
[2020-11-28] MEDS ORDERED: QUETIAPINE FUMA25 MG ORAL (13:44)
[2020-11-28] MEDS ORDERED: PROTONIX40 MG ORAL (13:44)
[2020-11-28] MEDS ORDERED: HEPARIN2000 UNIT/ IV (13:45)
[2020-11-28] MEDS ORDERED: AVAPRO150 MG ORAL (13:46)
[2020-11-28] MEDS ORDERED: SOLU-MEDRO40 MG/1 M1 IJ (13:46)
[2020-11-28] MEDS ORDERED: BYSTOLIC2.5 MG ORAL (13:47)
[2020-11-28] MEDS ORDERED: VITAMIN D32400 UNIT/ MC (13:49)
[2020-11-28] MEDS ORDERED: VITAMIN D325 MC1 PO (13:49)
--- NOTE | 2020-11-28 14:07 | NUR ---
NURSE NOTES: Patient discharged to [facility] via ambulance transfer. AxOx4, on NRM O2 at 15lpm sats 94%, no pain. Skin is intact. Report given to Janey at [facility], medication list and discharge instructions given to ambulance personnel. Daughter Priscilla notified of transfer. All personnel medications sent with ambulance personnel. Pt left at 1415H in stable condition.
--- NOTE | 2020-11-28 14:30 | Nephrology Progress Note ---
Assessment/Plan Problem List: (1) Renal failure (ARF), acute on chronic (2) Dehydration (3) COVID-19 (4) Lactic acidosis Assessment Renal failure, acute Possible underlying chronic kidney disease Dehydration COVID-19 infection, pneumonia Lactic acidosis 3+ proteinuria, hematuria with too many RBCs in the urine Plan November 28: Labs reviewed. Serum creatinine 1.5. Continue to monitor renal parameters. Medication list reviewed. Blood pressure is stable. November 27: Labs reviewed. Serum creatinine within normal limit. Continue per consultants. Blood pressure stable. November 26: Labs reviewed. Serum creatinine 1.2. IV fluids stopped. Midodrine stopped. Continue per consultants. November 25: Labs reviewed. Serum creatinine 1.4. Clinically stable. Continue per consultants. November 24: Labs reviewed. Serum creatinine 1.5. Clinically stable. Continue per consultants. November 23: Labs reviewed. Serum creatinine 1.8. Electrolytes stable. Continue as is. November 22: Labs reviewed. Serum creatinine 1.7. Serum sodium 135. Bolus of 500 cc normal saline given. Continue per consultants. November 21: Labs reviewed. Serum creatinine 1.8. Low phosphorus addressed. Patient full code. Continue per consultants. Previously: Slow hydration Monitor renal parameters Monitor electrolytes Keep the blood pressure blood sugar in check Antibiotics per ID Avoid nephrotoxic's Per orders Subjective ROS Limited/Unobtainable: No Constitutional: Reports: malaise, other - Febrile Objective Objective Last 24 Hour Vital Signs Date Time Temp Pulse Resp B/P (MAP) Pulse Ox O2 Delivery O2 Flow Rate FiO2 11/28/20 12:00 100.6 58 22 130/54 (79) 98 11/28/20 12:00 60 11/28/20 09:00 Non-Rebreather 15.0 11/28/20 08:49 139/57 11/28/20 08:00 53 11/28/20 08:00 99.9 55 22 139/57 (84) 98 11/28/20 04:00 59 11/28/20 04:00 102.6 59 20 141/58 (85) 90 11/28/20 00:00 61 11/28/20 00:00 102.1 61 22 114/40 (64) 94 11/28/20 00:00 100.0 55 18 115/42 (66) 91 11/27/20 21:00 Venturi Mask 10.0 11/27/20 20:00 55 11/27/20 19:43 95 Venturi Mask 10.0 50 11/27/20 16:00 65 11/27/20 16:00 98.1 61 20 115/50 (71) 97 Intake and Output 11/27/20 11/28/20 19:00 07:00 Intake Total 360 ml 260 ml Balance 360 ml 260 ml Intake Oral 360 ml Other 260 ml # Voids 3 2 Current Medications Medications (Trade) Dose Ordered Sig/Wilson Route PRN Reason Start Time Stop Time Status Last Admin Dose Admin Acetaminophen (Tylenol) 650 mg Q6H PRN ORAL Temp >100.5 11/20/20 04:30 12/20/20 04:29 11/23/20 23:57 Aspirin (ASA) 81 mg DAILY ORAL 11/21/20 09:00 01/05/21 08:59 11/28/20 08:48 Atorvastatin Calcium (Lipitor) 20 mg BEDTIME ORAL 11/20/20 21:00 02/18/21 20:59 11/27/20 21:00 Dextrose (Dextrose 50%) 25 ml Q30M PRN IV Hypoglycemia 11/20/20 04:30 02/18/21 04:29 Dextrose (Dextrose 50%) 50 ml Q30M PRN IV Hypoglycemia 11/20/20 04:30 02/18/21 04:29 Docusate Sodium (Colace) 100 mg THREE TIMES A DAY ORAL 11/20/20 13:00 12/20/20 12:59 11/28/20 08:48 Guaifenesin/ Dextromethorphan (Robitussin DM Syrup) 15 ml Q6H PRN ORAL For Cough 11/24/20 06:45 02/22/21 06:44 Heparin Sodium (Porcine) (Heparin 5000 units/ml) 5,000 units EVERY 12 HOURS SUBQ 11/20/20 09:00 01/04/21 08:59 11/28/20 09:37 Insulin Aspart (NovoLOG) BEFORE MEALS AND HS SUBQ 11/20/20 06:30 02/18/21 06:29 11/28/20 12:35 Irbesartan (Avapro) 300 mg DAILY ORAL 11/21/20 09:00 02/19/21 08:59 11/28/20 08:49 Meclizine HCl (Antivert) 25 mg EVERY 8 HOURS ORAL 11/21/20 22:00 12/21/20 21:59 11/27/20 13:24 Meclizine HCl (Antivert) 25 mg Q8H PRN ORAL for dizziness 11/20/20 17:30 12/20/20 17:29 Methylprednisolone Sodium Succinate (Solu-MEDROL) 40 mg DAILY IVP 11/29/20 09:00 02/27/21 08:59 Nebivolol (Bystolic) 5 mg DAILY ORAL 11/26/20 11:30 12/21/20 08:59 11/28/20 08:46 Pantoprazole (Protonix) 40 mg EVERY 12 HOURS ORAL 11/20/20 21:00 12/20/20 20:59 11/28/20 08:47 Patient Own Medication (Patient's Own Med) 1 ea DAILY ORAL 11/22/20 09:00 12/22/20 08:59 11/28/20 09:00 Patient Own Medication (Patient's Own Med) 1 ea DAILY ORAL 11/22/20 09:00 12/22/20 08:59 11/28/20 09:00 Quetiapine Fumarate (SEROqueL) 50 mg Q12HR ORAL 11/28/20 09:00 01/12/21 08:59 Tamsulosin HCl (Flomax) 0.4 mg TWICE A DAY ORAL 11/20/20 18:00 12/20/20 17:59 11/28/20 08:47 Vitamin D (Vitamin D) 5,000 unit DAILY ORAL 11/21/20 09:00 12/21/20 08:59 11/28/20 08:50 Laboratory Tests 11/27/20 16:43: POC Whole Blood Glucose 159H 11/27/20 19:56: POC Whole Blood Glucose 131H 11/28/20 05:56: POC Whole Blood Glucose 134H 11/28/20 07:03: White Blood Count 5.9, Red Blood Count 3.99L, Hemoglobin 12.6L, Hematocrit 37.3L , Mean Corpuscular Volume 93, Mean Corpuscular Hemoglobin 31.4H, Mean Corpuscular Hemoglobin Concent 33.6, Red Cell Distribution Width 12.9, Platelet Count 200, Mean Platelet Volume 9.1, Neutrophils (%) (Auto) , Lymphocytes (%) (Auto) , Monocytes (%) (Auto) , Eosinophils (%) (Auto) , Basophils (%) (Auto) , Differential Total Cells Counted 100, Neutrophils % (Manual) 89H, Lymphocytes % (Manual) 7L, Monocytes % (Manual) 4, Eosinophils % (Manual) 0, Basophils % (Manual) 0, Band Neutrophils 0, Platelet Estimate Adequate, Platelet Morphology Normal, Hypochromasia 1+, D-Dimer 10.90H, Sodium Level 138, Potassium Level 4.4, Chloride Level 104, Carbon Dioxide Level 27, Anion Gap 7, Blood Urea Nitrogen 27H, Creatinine 1.5H, Estimat Glomerular Filtration Rate 44.5, Glucose Level 135H, Calcium Level 8.7 11/28/20 11:39: POC Whole Blood Glucose 160H Height (Feet): 5 Height (Inches): 8.00 Weight (Pounds): 190 General Appearance: no apparent distress EENT: other - On nonrebreather mask Cardiovascular: normal rate, bradycardia Respiratory/Chest: decreased breath sounds Abdomen: distended Ac Castro MD Nov 28, 2020 14:30
[2020-11-29] MEDS ORDERED: Solu-MEDROL 40mg Inj IVP SCH (09:00)
--- NOTE | 2020-11-30 20:14 | Consultation ---
DATE OF CONSULTATION: 11/26/2020 CARDIOLOGY CONSULTATION REFERRING PHYSICIAN: Ziggy Carlson D.O. REASON FOR CONSULTATION: History of hypertension. HISTORY OF PRESENT ILLNESS: The patient is an 85-year-old [place] gentleman who was admitted on November 19, 2020 with not feeling good for a couple of days. His COVID test on November 14, 2020 was positive. He had temperature up to 103. 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 The chest x-ray showed atelectasis in the left middle lung. The patient was initially hypotensive and was already on midodrine. However, the blood pressure was elevated at 153/119 and a cardiology consultation was requested for medication adjustment as the patient is on 2 blood pressure medications with Avapro and Bystolic as well as on midodrine. REVIEW OF SYSTEMS: Negative other than what was mentioned in history of present illness. PAST MEDICAL HISTORY: As mentioned above. FAMILY HISTORY: Noncontributory. MEDICATIONS: Per reconciliation. PHYSICAL EXAMINATION: VITAL SIGNS: Blood pressure 153/119, pulse is 54, respirations are 18, temperature 97. HEAD AND NECK: No JVD. LUNGS: Clear. CARDIOVASCULAR: Regular S1 and S2 with no gallop. ABDOMEN: Soft. EXTREMITIES: No pitting edema. LABORATORY DATA: Labs show sodium is 139, potassium is 4.1, BUN of 23, creatinine 1.2, and glucose of 154. White count is 9.1, hematocrit 12.7, hematocrit 34.8, and platelet count is 206. The D-dimer is 8.1. ASSESSMENT AND PLAN: 1. Hypertension. I will discontinue midodrine. The patient is already on Avapro 300 mg daily. That would be continued. I will increase the Bystolic to 5 mg daily and watch the patient clinically. 2. COVID pneumonia, on Solu-Medrol 40 mg IV b.i.d. The patient is on nonrebreather facemask. 3. Status post renal failure. Creatinine has improved. 4. Dehydration. 5. Lactic acidosis. Thank you very much for allowing me to participate in the care of this patient. Please do not hesitate to contact me for any questions regarding my evaluation. Maxi Apodaca M.D. DR: BILL JOB#: [id number] CC:
== END 2020-11-28 14:10 | disposition short-term general hospital (02) | DRG 177 ==
LOC: EDBD 19:47 → EMR 20:15 → 4E 21:59 → EDBEDREQ 22:37 → 4E 11-20 20:48 → 2E 11-26 15:24
DX: U07.1 COVID-19 (principal); J12.82 Pneumonia due to coronavirus disease 2019; J96.90 Respiratory failure, unspecified, unspecified whether with hypoxia or hypercapnia; E87.2 Acidosis; N39.0 Urinary tract infection, site not specified; N17.9 Acute kidney failure, unspecified; I12.9 Hypertensive chronic kidney disease with stage 1 through stage 4 chronic kidney disease, or unspecified chronic kidney disease; N18.9 Chronic kidney disease, unspecified; E11.65 Type 2 diabetes mellitus with hyperglycemia; Z86.73 Personal history of transient ischemic attack (TIA), and cerebral infarction without residual deficits; G47.33 Obstructive sleep apnea (adult) (pediatric); R00.0 Tachycardia, unspecified; N40.0 Benign prostatic hyperplasia without lower urinary tract symptoms; J44.9 Chronic obstructive pulmonary disease, unspecified; Z79.82 Long term (current) use of aspirin; R53.1 Weakness; I25.10 Atherosclerotic heart disease of native coronary artery without angina pectoris; D69.6 Thrombocytopenia, unspecified; D63.8 Anemia in other chronic diseases classified elsewhere; E78.5 Hyperlipidemia, unspecified; E86.0 Dehydration
CPT/HCPCS: 36415; 71045; 80048; 80053; 80061; 80076; 81003; 82306; 82308; 82550; 82553; 82607; 82728; 82746; 82962; 82977; 83036; 83540; 83550; 83605; 83615; 83690; 83735; 83880; 84100; 84439; 84443; 84484; 84550; 85007; 85025; 85379; 85610; 85730; 86140; 86703; 86705; 86709; 86803; 87040; 87340; 93005; 93306; 93970; 96361; 96365; 96375; 99285; J7030; U0002